=== PATIENT | female | born 1970 | race Caucasian/White ===

== ENCOUNTER 2017-07-20 20:27 | Emergency (ER) | payer MEDICAID, SELFPAY ==
[2017-07-20 20:28] VITALS: BP 175/107; PULSE 86; RESP 20; TEMP 36.7; O2SAT 98; BMI 37.6
[2017-07-20 21:59] LABS: Bacteria 0 SEEN /hpf (None Seen); Mucous, Urine 0 SEEN /hpf (<or=2+); White Blood Cells 0 SEEN /hpf (0-5)
[2017-07-20 22:02] LABS: Color, Urine Yellow (Yellow); Glucose, Dipstick Normal (Normal); Ketone-Dipstick Negative (Negative); Leukocyte Esterase-Dipstick Negative /ul (Negative); Nitrite-Dipstick Negative (Negative); Occult Blood-Urine 150 /ul (Negative); Protein-Dipstick Negative (Negative); Specific Gravity, Urine 1.015 (1.002-1.030); Urine Bilirubin Dipstick Negative (Negative); Urine Clarity Clear (Clear); Urine Urobilinogen Normal (Normal)
--- NOTE | 2017-07-20 22:05 | ED.VISSUMM ---
- ER Visit Summary Date of Service: 07/20/17 Chief Complaint: [] Lower abdominal pain History of Present Illness: The patient is a 47 F presents with lower abdominal pain for last 14 days. Gradual onset continuous cramping. Current severity is mild. No home treatment. No nausea vomiting or diarrhea. She does have history of endometriosis. She has been on her period for last 4 days and she is having light bleeding. She had her gallbladder taken out for chronic right upper quadrant abdominal pain in April. She has had persistent discomfort in that area since the surgery. However her suprapubic discomfort is not related. Physical Examination: Vital signs reviewed General: Well-nourished well-developed Head: Normocephalic atraumatic Eyes: Pupils equal round and reactive to light extraocular movements intact ENT: TMs clear no hemotympanum no trauma Neck: Nontender full range of motion Cardiovascular: Regular rate rhythm no murmurs normal S1-S2 Respiratory: No distress clear to auscultation bilaterally chest nontender Abdomen: Soft mild tenderness palpation suprapubic nondistended normal bowel sounds no masses Back: Nontender no CVA tenderness Extremities: Nontender active range of motion ?4 extremities no trauma Skin: Normal color no trauma Neuro alert oriented cranial nerves II through XII intact normal strength sensation reflexes Test Results: [] Emergency Department Course and Treatment: [] The patient did not want anything for pain. Lab work obtained. Work unremarkable including CBC chemistries liver function tests lipase urine testing and . The patient does play best feels about the same afterwards. This could be endometrial implant. This could be pain from her period. She will follow-up with her LAYBOY TENDER. I do not feel she needs an emergent ultrasound. Treatment Plan: [] Disposition: [] Impression: [] Lower abdominal pain This note was generated with [employer] dictation software. It may contain incorrect words, spelling, and punctuation that were not noted in review of the chart prior to signing ED Disposition - Plan for ED Patient: Chief Complaint: Abd Pain Referrals: Rufus Joel MD [Primary Care Provider] -
[2017-07-20 22:08] LABS: Red Blood Cells-Urine 0-5 SEEN /hpf (0-5); Squamous Epithelial Cells - UA 0-5 SEEN /hpf (5-10)
[2017-07-20 22:32] LABS: Absolute Lymphocyte Count 3.17 X10^3/ul (0.83-4.51); Absolute Neutrophil Count 5.2 X10^3/uL (2.0-7.7); Basophil# 0.07 X10^3/uL; Basophil% 0.8 % (0-1); Eosinophil# 0.12 X10^3/uL; Eosinophils% 1.3 % (0-5); Hemoglobin 15.3 g/dl (12.0-15.0); Lymphocyte # 3.17 X10^3/ul (4.0); Lymphocyte % 34.5 % (19-41); Mean Corp Hgb Conc 33.3 g/gl (32-36); Mean Corpuscular Hgb 29.4 pg (27.0-32.0); Mean Corpuscular Volume 88.5 fL (81-99); Mean Platelet Vol. 10.4 fl (6.2-12.0); Monocyte# 0.67 X10^3/uL; Monocyte% 7.3 % (0-10); Neutrophil # 5.15 X10^3/uL (2.7-7.7); POSITIVE COUNT NO; POSITIVE DIFFERENTIAL NO; POSITIVE MORPHOLOGY NO; Platelet Count 227 K/mm3 (150-450); RBC Distribution Width CV 13.9 % (11.6-14.6); RBC Distribution Width SD 44.3 fl (35.1-43.9); White Blood Count 9.2 K/mm3 (4.4-11.0)
[2017-07-20 22:46] LABS: ALB/GLOB Ratio 0.8 RATIO (0.9-2.4); AST(SGOT) 22 U/L (15-37); Alanine Aminotransfer ALT/SGPT 32 U/L (13-56); Albumin, Serum 3.4 g/dL (3.2-5.0); Alkaline Phosphatase 104 U/L (45-117); Anion Gap 6 (5-15); BUN 14 mg/dL (7-18); BUN/Creat Ratio 13.3 RATIO (10-20); Calcium,Total 8.9 mg/dL (8.5-10.1); Chloride 104 mmol/L (98-107); Creatinine, Serum 1.05 mg/dL (0.55-1.02); EST Glomerular Filtration Rate 60 mL/min (>60); Est Glom Filt Rate - Afr Amer 72 mL/min (>60); Estimated Creatinine Clearance 74.03 ml/min; Globulin 4.1 g/dL (2.2-4.2); Glucose 97 mg/dL (74-106); Lipase 156 U/L (73-393); Protein, Total 7.5 g/dL (6.4-8.2); Sodium Level 138 mmol/L (136-145)
[2017-07-20 23:18] LABS: Internal QC Validated? YES +Cl - CLEAR BKGD; Pregnancy, Urine Negative Negative
--- NOTE | 2017-07-20 23:35 | DCINST.ED_ITS ---
ED Disposition - Plan for ED Patient: Disposition: Home or Assisted Living Chief Complaint: Abd Pain Instructions: ED Abdominal Pain Unkn Cause Referrals: Rufus Joel MD [Primary Care Provider] - Additional Instructions: Please follow with your INFRASTRUCTURE SOFTWARE ENGINEER
[2017-07-20 23:46] VITALS: BP 131/75; PULSE 56; PULSE 59; RESP 16; O2SAT 52; O2SAT 97
== END 2017-07-20 23:47 | disposition home or self-care (01) ==
PROVIDERS: Emergency Provider Emergency Medicine; Family Provider Family Medicine; PCP Family Medicine
DX: R10.30 Lower abdominal pain, unspecified (principal); E11.9 Type 2 diabetes mellitus without complications; N80.9 Endometriosis, unspecified; Z79.84 Long term (current) use of oral hypoglycemic drugs; Z90.49 Acquired absence of other specified parts of digestive tract
CPT/HCPCS: 80053; 81001; 81025; 83690; 85025; 99283

== ENCOUNTER → 2018-12-17 | Outpatient (CLI) | payer MEDICAID, SELFPAY ==
[2018-12-17 12:17] LABS: Absolute Lymphocyte Count 2.23 X10^3/uL (0.83-4.51); Absolute Neutrophil Count 5.6 X10^3/uL (2.0-7.7); Basophil# 0.06 X10^3/uL; Basophil% 0.7 % (0-1); Eosinophil# 0.09 X10^3/uL; Hematocrit 44.9 % (37-47); Lymphocyte # 2.23 X10^3/ul (4.0); Lymphocyte % 25.7 % (19-41); Mean Corp Hgb Conc 33.4 g/dL (32-36); Mean Corpuscular Hgb 29.6 pg (27.0-32.0); Mean Corpuscular Volume 88.7 fL (81-99); Monocyte# 0.67 X10^3/uL; Monocyte% 7.7 % (0-10); NRBC Flagged by Analyzer 0 % (0-5); Neutrophil # 5.62 X10^3/uL (2.7-7.7); Neutrophil % 64.7 % (47-70); Platelet Count 250 K/mm3 (150-450); RBC Distribution Width CV 13.2 % (11.6-14.6); RBC Distribution Width SD 42.7 fl (35.1-43.9); Red Blood Count 5.06 M/mm3 (4.2-5.4); White Blood Count 8.7 K/mm3 (4.4-11.0)
[2018-12-17 12:43] LABS: ALB/GLOB Ratio 0.9 RATIO (0.9-2.4); AST(SGOT) 27 U/L (15-37); Alanine Aminotransfer ALT/SGPT 35 U/L (13-56); Albumin, Serum 3.5 g/dL (3.2-5.0); Alkaline Phosphatase 109 U/L (45-117); Anion Gap 5 (5-15); BUN 8 mg/dL (7-18); BUN/Creat Ratio 11.2 RATIO (10-20); Calcium,Total 9.2 mg/dL (8.5-10.1); Chloride 105 mmol/L (98-107); Creatinine, Serum 0.71 mg/dL (0.55-1.02); EST Glomerular Filtration Rate 93 mL/min (>60); Est Glom Filt Rate - Afr Amer 112 mL/min (>60); Globulin 3.9 g/dL (2.2-4.2); Glucose 115 mg/dL (74-106); Potassium 3.7 mmol/L (3.5-5.1); Protein, Total 7.4 g/dL (6.4-8.2); Sodium Level 134 mmol/L (136-145); Thyroid Stim Hormone (TSH) 1.62 uIU/mL (0.358-3.74)
== END | disposition home or self-care (01) ==
LOC: BFHLAB 11:04
PROVIDERS: Family Provider Family Medicine; PCP Family Medicine; Visit Provider Family Medicine
DX: E11.9 Type 2 diabetes mellitus without complications (principal); E78.5 Hyperlipidemia, unspecified; R60.9 Edema, unspecified
CPT/HCPCS: 36415; 80053; 84443; 85025

== ENCOUNTER → 2020-03-07 11:02 | Outpatient (CLI) | payer MEDICAID, SELFPAY ==
[2020-03-07 15:15] LABS: Absolute Lymphocyte Count 2.52 X10^3/uL (0.83-4.51); Absolute Neutrophil Count 4.6 X10^3/uL (2.0-7.7); Basophil# 0.06 X10^3/uL; Basophil% 0.8 % (0-1); Eosinophil# 0.09 X10^3/uL; Eosinophils% 1.1 % (0-5); Hematocrit 44.6 % (37-47); Hemoglobin 14.3 g/dL (12.0-15.0); Lymphocyte # 2.52 X10^3/ul (4.0); Mean Corp Hgb Conc 32.1 g/dL (32-36); Mean Corpuscular Hgb 29.4 pg (27.0-32.0); Mean Corpuscular Volume 91.6 fL (81-99); Mean Platelet Vol. 11.2 fl (6.2-12.0); Monocyte# 0.58 X10^3/uL; Monocyte% 7.4 % (0-10); NRBC Flagged by Analyzer 0 % (0-5); Neutrophil # 4.59 X10^3/uL (2.7-7.7); Neutrophil % 58.3 % (47-70); Platelet Count 223 K/mm3 (150-450); RBC Distribution Width CV 12.8 % (11.6-14.6); RBC Distribution Width SD 43.2 fl (35.1-43.9); Red Blood Count 4.87 M/mm3 (4.2-5.4); White Blood Count 7.9 K/mm3 (4.4-11.0)
[2020-03-07 15:39] LABS: ALB/GLOB Ratio 0.9 RATIO (0.9-2.4); AST(SGOT) 28 U/L (15-37); Alanine Aminotransfer ALT/SGPT 39 U/L (13-56); Albumin, Serum 3.4 g/dL (3.2-5.0); Alkaline Phosphatase 95 U/L (45-117); Anion Gap 8 (5-15); BUN 8 mg/dL (7-18); BUN/Creat Ratio 9.4 RATIO (10-20); Calcium,Total 8.8 mg/dL (8.5-10.1); Chloride 99 mmol/L (98-107); Cholesterol 209 mg/dL (200); Creatinine, Serum 0.85 mg/dL (0.55-1.02); EST Glomerular Filtration Rate 75 mL/min (>60); Est Glom Filt Rate - Afr Amer 91 mL/min (>60); Globulin 3.7 g/dL (2.2-4.2); Glucose 144 mg/dL (74-106); High Density Lipoprotein 50 mg/dL; Potassium 3.9 mmol/L (3.5-5.1); Protein, Total 7.1 g/dL (6.4-8.2); Sodium Level 135 mmol/L (136-145); Thyroid Stim Hormone (TSH) 2.71 uIU/mL (0.358-3.74); Triglycerides 190 mg/dL; Very Low Density Lipoprotein 38 mg/dL (5-40)
[2020-03-07 15:51] LABS: Hemoglobin A1c 8.2 % (3.8-5.6)
== END ==
PROVIDERS: PCP Family Medicine; Visit Provider Family Medicine
DX: E11.65 Type 2 diabetes mellitus with hyperglycemia (principal); E66.9 Obesity, unspecified
CPT/HCPCS: 36415; 80053; 80061; 83036; 84443; 85025

== ENCOUNTER 2020-05-16 09:39 | Day surgery (SDC) | payer OTHER, SELFPAY ==
--- NOTE | 2020-05-16 | COLBX_PTH ---
PATIENT: DAPHNE ACOSTA LOC: [facility] U#:[id number] AGE/SX: 49/F ROOM: RE05/16/[address]: Dr. Kostas Rush MD : 1970 BED: DIS: 05/16/2020 SPEC #: [id number] RECD: 05/16/20 12:58 STATUS: CLARE JESUS #: [id number] NOEL: 05/16/20 00:[address]: Kostas Rush DEPT: SURGICAL PATHOLOGY RECD BY: Bryant Alvarenga ENTERED: 05/16/20 12:58 SP TYPE: COLON BX OTHR DR: Dr. Rufus Joel MD Tissues: A - Duodenum, NOS B - Gastric mucous membrane C - COLON BIOPSY D - Ileum, NOS Procedures: Surgery Specimen Level IV HEADER OPERATION: Colonoscopy, EGD ([facility] [place] PRE-OP DIAGNOSIS: Hernandez's esophagus; esophageal dysphagia; diarrhea; abdominal bloating TISSUE SUBMITTED: A - Duodenum biopsy, B - Antrum biopsy for H. pylori and path, C - Random colon biopsies, D - Terminal ileum biopsy MICROSCOPIC DIAGNOSIS A. Duodenum, biopsy: Fragments of small intestinal mucosa, no pathologic diagnosis. B. Antrum, biopsy: Mild gastritis. See microscopic description and comment. C. Colon, random biopsy: Fragments of colonic mucosa, no pathologic diagnosis. D. Terminal ileum, biopsy: A fragment of small intestinal mucosa, no pathologic diagnosis. SJ:daniella 05/17/20 COMMENT B. The results of immunohistochemistry for Helicobacter pylori will be reported separately ([id number]). MICROSCOPIC DESCRIPTION Slides are reviewed. B. The specimen shows fragments of gastric mucosa with chronic inflammatory cell infiltrates in the lamina propria consisting of lymphocytes and plasma cells, consistent with mild chronic gastritis. GROSS DESCRIPTION A - Received in fixative is one container labeled with the patient's name and designated duodenal biopsy. The specimen consists of two irregular fragments of light warren soft tissue that in aggregate measure 0.8 x 0.5 x 0.1 cm. The specimen is totally submitted in one cassette. B - Received in fixative is one container labeled with the patient's name and designated antrum biopsy. The specimen consists of multiple irregular fragments of light warren soft tissue that in aggregate measure 0.5 x 0.3 x 0.1 cm. The specimen is totally submitted in one cassette. C - Received in fixative is one container labeled with the patient's name and designated random colon biopsy. The specimen consists of multiple irregular fragments of light warren soft tissue that in aggregate measure 3 x 1 x 0.1 cm. The specimen is totally submitted in one cassette. D - Received in fixative is one container labeled with the patient's name and designated terminal ileum biopsy. The specimen consists of one irregular fragment of light warren soft tissue that measures 0.7 x 0.5 x 0.1 cm. The specimen is totally submitted in one cassette. / AM:daniella 05/16/20 TC:3 CPT: 22992 x4
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
[2020-05-16 10:13] VITALS: BP 159/86; PULSE 72; RESP 16; TEMP 36.1; O2SAT 97; BMI 38.1
[2020-05-16 10:13] LABS: Internal QC Validated? YES +Cl - CLEAR BKGD; Pregnancy, Urine Negative Negative
[2020-05-16] MEDS: Lactated Ringers 1,000 ML 100 ML IV (10:18)
--- NOTE | 2020-05-16 10:45 | IMM_PTH ---
PATIENT: DAPHNE ACOSTA LOC: [facility] U#:[id number] AGE/SX: 49/F ROOM: RE05/16/[address]: Dr. Kostas Rush MD : 1970 BED: DIS: 05/16/2020 SPEC #: [id number] RECD: 05/16/20 13:41 STATUS: CLARE REQ #: [id number] NOEL: 05/16/20 10:[address]: Kostas Rush DEPT: IMMUNOHISTOCHEMISTRY RECD BY: Delaney Frias ENTERED: 05/16/20 13:42 SP TYPE: IMMUNO OTHR DR: Dr. Rufus Joel MD Tissues: B - Stomach, NOS Procedures: H Pylori (initial) PHYSICIAN & INSTITUTION [place] [id number] SPECIMEN INFORMATION: Tissue Source: B - Antrum biopsy Clinical Info: Hernandez's esophagus; esophageal dysphagia; diarrhea; abdominal bloating Specimen Number: [id number] CPT code: 12238 METHODOLOGY: Deparaffinized sections of prefer/formalin-fixed tissue or PAP/DQ stained slides are incubated with monoclonal/polyclonal antibodies/oligonucleotide probes. Localization is made via biotin free immunoperoxidase method. Appropriate controls are performed and reacted as expected. Results on target cell population are indicated in the following table: RESULTS: ANTIBODY / CLONE RESULT Block B H Pylori (polyclonal) negative These tests were developed and their performance characteristics determined by [facility]. They may not have been cleared or approved by the U.S. Food and Drug Administration. The FDA has determined that such clearance or approval is not necessary. INTERPRETATION: B. Antrum, biopsy: Negative for Helicobacter pylori organisms. SJ:daniella 05/17/20
[2020-05-16 11:00] VITALS: BP 124/71; BP 159/86; PULSE 67; RESP 16; TEMP 36.1; O2SAT 97
[2020-05-16 11:05] VITALS: BP 129/77; BP 159/86; PULSE 66; RESP 16; O2SAT 97
[2020-05-16 11:10] VITALS: BP 128/92; BP 159/86; PULSE 65; RESP 16; O2SAT 96
[2020-05-16 11:15] VITALS: BP 132/83; BP 159/86; PULSE 55; RESP 16; TEMP 36.3; O2SAT 97
[2020-05-16 11:25] LABS: Bedside Glucose 175 mg/dL (70-110)
--- NOTE | 2020-05-16 11:45 | OP.EGD_ITS ---
Patient Name: Ibis De Leon Procedure Date: 05/16/2020 10:28 AM Date of : 1970 Age: 49 Procedure: Upper GI endoscopy Indications: Esophageal dysphagia, Surveillance for malignancy due to personal history of Hernandez's esophagus, Abdominal bloating Providers: Kostas Rush MD Referring MD: Rufus Joel Medicines: See the Anesthesia note for documentation of the administered medications Patient Profile: This is a 49 year old female. Refer to note in patient chart for documentation of history and physical. Complications: No immediate complications. Procedure: Pre-Anesthesia Assessment: - Prior to the procedure, a History and Physical was performed, and patient medications and allergies were reviewed. The patient's tolerance of previous anesthesia was also reviewed. The risks and benefits of the procedure and the sedation options and risks were discussed with the patient. All questions were answered, and informed consent was obtained. Prior Anticoagulants: The patient has taken Xarelto (rivaroxaban), last dose was 5 days prior to procedure. ASA Grade Assessment: III - A patient with severe systemic disease. After reviewing the risks and benefits, the patient was deemed in satisfactory condition to undergo the procedure. After obtaining informed consent, the endoscope was passed under direct vision. Throughout the procedure, the patient's blood pressure, pulse, and oxygen saturations were monitored continuously. The gastroscope was introduced through the mouth, and advanced to the duodenal bulb. The upper GI endoscopy was accomplished without difficulty. The patient tolerated the procedure well. Scope In: 10:40:05 AM Scope Out: 10:43:00 AM Total Procedure Duration Time 0 hours 2 minutes 55 seconds Findings: The examined esophagus was normal. No biopsies or other specimens were collected for this exam.The patient's distal esophagus was stone cold normal. No biopsies were performed. Localized mild inflammation characterized by congestion (edema), erythema and granularity was found in the prepyloric region of the stomach. Biopsies were taken with a cold forceps for Helicobacter pylori testing. The examined duodenum was normal. Biopsies for histology were taken with a cold forceps for evaluation of celiac disease. Impression: - Normal esophagus. No specimens collected. - Gastritis. Biopsied. - Normal examined duodenum. Biopsied. Recommendation: - Await pathology results. - Repeat upper endoscopy in 3 years for surveillance. - Telephone my office for pathology results in 1 week. - Perform routine esophageal manometry at appointment to be scheduled. - Continue present medications. Procedure Code(s): --- Professional --- 10316, Esophagogastroduodenoscopy, flexible, transoral; with biopsy, single or multiple Diagnosis Code(s): --- Professional --- K22.70, Hernandez's esophagus without dysplasia K29.70, Gastritis, unspecified, without bleeding R13.14, Dysphagia, pharyngoesophageal phase R14.0, Abdominal distension (gaseous) CPT copyright 2017 [employer]. All rights reserved. The codes documented in this report are preliminary and upon resaw feeder review may be revised to meet current compliance requirements. MD Kostas Blunt MD 05/16/2020 11:03:18 AM This report has been signed electronically. Number of Addenda: 0 Note Initiated On: 05/16/2020 10:28 AM
--- NOTE | 2020-05-16 11:45 | OP.COLON_ITS ---
Patient Name: Ibis De Leon Procedure Date: 05/16/2020 10:43 AM Date of : 1970 Age: 49 Procedure: Colonoscopy Indications: Clinically significant diarrhea of unexplained origin, Incidental diarrhea noted Providers: Kostas Rush MD Referring MD: Rufus Joel Medicines: See the Anesthesia note for documentation of the administered medications Patient Profile: This is a 49 year old female. Refer to note in patient chart for documentation of history and physical. Last Colonoscopy: none. The patient's first colonoscopy is today. Complications: No immediate complications. Procedure: Pre-Anesthesia Assessment: - Prior to the procedure, a History and Physical was performed, and patient medications and allergies were reviewed. The patient's tolerance of previous anesthesia was also reviewed. The risks and benefits of the procedure and the sedation options and risks were discussed with the patient. All questions were answered, and informed consent was obtained. Prior Anticoagulants: The patient has taken Xarelto (rivaroxaban), last dose was 5 days prior to procedure. ASA Grade Assessment: III - A patient with severe systemic disease. After reviewing the risks and benefits, the patient was deemed in satisfactory condition to undergo the procedure. After I obtained informed consent, the scope was passed under direct vision. Throughout the procedure, the patient's blood pressure, pulse, and oxygen saturations were monitored continuously. The colonoscope was introduced through the anus and advanced to 3 cm into the ileum. The colonoscopy was performed without difficulty. The patient tolerated the procedure well. The quality of the bowel preparation was good. Scope In: 10:44:54 AM Scope Withdrawal Time 0 hours 7 minutes 0 seconds Scope Out: 10:56:18 AM Total Procedure Duration Time 0 hours 11 minutes 24 seconds Findings: The colon (entire examined portion) appeared normal. Biopsies for histology were taken with a cold forceps from the entire colon for evaluation of microscopic colitis. Non-bleeding internal hemorrhoids were found during retroflexion. The hemorrhoids were mild and small. No biopsies or other specimens were collected for this exam. The exam was otherwise without abnormality. The terminal ileum appeared normal. Biopsies were taken with a cold forceps for histology. Impression: - The entire examined colon is normal. Biopsied. - Non-bleeding internal hemorrhoids. No specimens collected. - The examination was otherwise normal. - The examined portion of the ileum was normal. Biopsied. Recommendation: - Discharge patient to home. - Resume previous diet. - Continue present medications. - Await pathology results. - Repeat colonoscopy in 10 years for screening purposes. - Telephone my office for pathology results in 1 week. Procedure Code(s): --- Professional --- 22770, Colonoscopy, flexible; with biopsy, single or multiple Diagnosis Code(s): --- Professional --- K64.8, Other hemorrhoids R19.7, Diarrhea, unspecified CPT copyright 2017 [employer]. All rights reserved. The codes documented in this report are preliminary and upon interrelated special education teacher review may be revised to meet current compliance requirements. MD Kostas Blunt MD 05/16/2020 11:07:49 AM This report has been signed electronically. Number of Addenda: 0 Note Initiated On: 05/16/2020 10:43 AM
--- NOTE | 2020-05-16 11:45 | OP.CCLET_ITS ---
05/16/2020 Rufus Joel Re : Upper GI endoscopy procedure for Ibis De Leon Dear Wisam This procedure was performed on Saturday, May 16, 2020. My impressions and recommendations are as follows: Impressions : - Normal esophagus. No specimens collected. - Gastritis. Biopsied. - Normal examined duodenum. Biopsied. Recommendations : - Await pathology results. - Repeat upper endoscopy in 3 years for surveillance. - Telephone my office for pathology results in 1 week. - Perform routine esophageal manometry at appointment to be scheduled. - Continue present medications. My findings are described in the full procedure note, which is enclosed. If I can be of further assistance, please feel free to contact me at Doctor phone number(s): , Fax: [phone], Work: . Sincerely, MD Kostas Blunt MD 05/16/2020 11:03:18 AM This report has been signed electronically.
--- NOTE | 2020-05-16 11:45 | OP.CCLET_ITS ---
05/16/2020 Rufus Joel Re : Colonoscopy procedure for Ibis De Leon Dear Wisam This procedure was performed on Saturday, May 16, 2020. My impressions and recommendations are as follows: Impressions : - The entire examined colon is normal. Biopsied. - Non-bleeding internal hemorrhoids. No specimens collected. - The examination was otherwise normal. - The examined portion of the ileum was normal. Biopsied. Recommendations : - Discharge patient to home. - Resume previous diet. - Continue present medications. - Await pathology results. - Repeat colonoscopy in 10 years for screening purposes. - Telephone my office for pathology results in 1 week. My findings are described in the full procedure note, which is enclosed. If I can be of further assistance, please feel free to contact me at Doctor phone number(s): , Fax: [phone], Work: . Sincerely, MD Kostas Blunt MD 05/16/2020 11:07:49 AM This report has been signed electronically.
[2020-05-16 11:48] VITALS: BP 159/86
== END 2020-05-16 12:01 | disposition home or self-care (01) ==
LOC: EN 09:41 → AC 09:42
PROVIDERS: Anesthesiology; PCP Family Medicine; Referring Provider Family Medicine; Visit Provider Surgery
PROC: 0DJD8ZZ Inspection of Lower Intestinal Tract, Via Natural or Artificial Opening Endoscopic (ICD-10-PCS; CPT 45378; principal; 2020-05-16 10:40)
DX: K22.70 Barrett's esophagus without dysplasia (principal); K29.70 Gastritis, unspecified, without bleeding; K64.8 Other hemorrhoids; Z20.828 Contact with and (suspected) exposure to other viral communicable diseases; F41.9 Anxiety disorder, unspecified; E11.9 Type 2 diabetes mellitus without complications; Z87.19 Personal history of other diseases of the digestive system; Z86.718 Personal history of other venous thrombosis and embolism; Z90.49 Acquired absence of other specified parts of digestive tract; Z79.01 Long term (current) use of anticoagulants; Z79.84 Long term (current) use of oral hypoglycemic drugs; Z79.899 Other long term (current) drug therapy; Z87.891 Personal history of nicotine dependence
CPT/HCPCS: 43239; 45380; 81025; 82962; 87426; 88305; 88342; C9803; J7120; J2405

== ENCOUNTER → 2020-08-14 08:36 | Outpatient (CLI) | payer OTHER, SELFPAY ==
[2020-08-14 10:17] LABS: Erythrocyte Sedimentation Rate 35 mm/hr (0-30)
[2020-08-14 10:20] LABS: Absolute Lymphocyte Count 2.48 X10^3/uL (0.83-4.51); Absolute Neutrophil Count 5.4 X10^3/uL (2.0-7.7); Basophil# 0.08 X10^3/uL; Basophil% 0.9 % (0-1); Eosinophil# 0.42 X10^3/uL; Eosinophils% 4.7 % (0-5); Hematocrit 45.7 % (37-47); Hemoglobin 14.9 g/dL (12.0-15.0); Lymphocyte # 2.48 X10^3/ul (4.0); Lymphocyte % 27.6 % (19-41); Mean Corp Hgb Conc 32.6 g/dL (32-36); Mean Corpuscular Hgb 29.7 pg (27.0-32.0); Mean Platelet Vol. 11.4 fl (6.2-12.0); Monocyte# 0.65 X10^3/uL; Monocyte% 7.2 % (0-10); NRBC Flagged by Analyzer 0 % (0-5); Neutrophil # 5.35 X10^3/uL (2.7-7.7); Neutrophil % 59.4 % (47-70); Platelet Count 192 K/mm3 (150-450); RBC Distribution Width CV 12.9 % (11.6-14.6); RBC Distribution Width SD 42.3 fl (35.1-43.9); Red Blood Count 5.02 M/mm3 (4.2-5.4)
[2020-08-14 10:39] LABS: Vitamin D,25 Hydroxy 22.8 ng/mL
[2020-08-14 10:45] LABS: AST(SGOT) 31 U/L (15-37); Alanine Aminotransfer ALT/SGPT 41 U/L (13-56); Albumin, Serum 3.8 g/dL (3.2-5.0); Alkaline Phosphatase 108 U/L (45-117); Anion Gap 7 (5-15); BUN 11 mg/dL (7-18); BUN/Creat Ratio 13.2 RATIO (10-20); Calcium,Total 9.3 mg/dL (8.5-10.1); Chloride 100 mmol/L (98-107); Creatinine, Serum 0.84 mg/dL (0.55-1.02); EST Glomerular Filtration Rate 77 mL/min (>60); Est Glom Filt Rate - Afr Amer 93 mL/min (>60); Globulin 3.8 g/dL (2.2-4.2); Glucose 131 mg/dL (74-106); Potassium 3.9 mmol/L (3.5-5.1); Protein, Total 7.6 g/dL (6.4-8.2); Rheumatoid Factor < 10.0 IU/mL (<15); Sodium Level 133 mmol/L (136-145); Thyroid Stim Hormone (TSH) 2.55 uIU/mL (0.358-3.74)
[2020-08-16 03:07] LABS: Endomysial Antibody IgA Negative (Negative); Immunoglobulin A 232 mg/dL (87-352)
[2020-08-16 07:30] LABS: CCP IgG Antibodies 21 units (0-19); t-Transglutaminase IgA <2 U/mL (0-3)
== END ==
PROVIDERS: PCP Family Medicine; Referring Provider Family Medicine; Visit Provider Family Medicine
DX: E11.65 Type 2 diabetes mellitus with hyperglycemia (principal); R19.7 Diarrhea, unspecified; M13.0 Polyarthritis, unspecified; R53.83 Other fatigue
CPT/HCPCS: 36415; 80053; 82306; 82784; 83516; 84443; 85025; 85652; 86038; 86140; 86200; 86255; 86431

== ENCOUNTER → 2020-10-05 09:29 | Outpatient (CLI) | payer OTHER, SELFPAY ==
--- NOTE | 2020-10-05 09:37 | RAD_ITS ---
STUDY: X-RAY - RIGHT ELBOW REASON FOR EXAM: Female, 50 years old. PAIN TECHNIQUE: 3 view(s) of the elbow. COMPARISON: None. FINDINGS: Normal visualized humerus, radius and ulna. Normal radiocapitellar and ulnotrochlear articulations. The soft tissue structures are unremarkable. RAD/Elbow min 3 Views IMPRESSION: Normal x-ray examination of the elbow. Electronically Signed: Trenton Perez MD at 7:16 EDT Tel , Service support ,
--- NOTE | 2020-10-05 09:37 | RAD_ITS ---
STUDY: X-RAY - LEFT ELBOW REASON FOR EXAM: Female, 50 years old. PAIN TECHNIQUE: 3 view(s) of the elbow. COMPARISON: None. FINDINGS: Normal visualized humerus, radius and ulna. Normal radiocapitellar and ulnotrochlear articulations. The soft tissue structures are unremarkable. RAD/Elbow min 3 Views IMPRESSION: Normal x-ray examination of the elbow. Electronically Signed: Trenton Perez MD at 7:24 EDT Tel , Service support ,
--- NOTE | 2020-10-05 09:38 | RAD_ITS ---
STUDY: X-RAY - RIGHT HAND REASON FOR EXAM: Female, 50 years old. PAIN TECHNIQUE: 2 view(s) of the hand. COMPARISON: None. FINDINGS: Normal radiocarpal articulation. Normal distal radioulnar joint. Normal visualized carpal bones. Normal carpal articulations Normal carpometacarpal articulation of the thumb. Normal second through fifth carpometacarpal joints. Normal metacarpi. Normal metacarpophalangeal joint of the thumb. Normal interphalangeal joint of the thumb. Normal proximal and distal phalanges of the thumb. Normal metacarpophalangeal joints of the second through fifth fingers. Normal proximal and distal interphalangeal joints of the second through fifth fingers. Normal phalanges of the second through fifth fingers. The soft tissue structures are unremarkable. RAD/Hand 2 Views IMPRESSION: Normal x-ray examination of the hand. Electronically Signed: Trenton Perez MD at 7:18 EDT Tel , Service support ,
--- NOTE | 2020-10-05 09:38 | RAD_ITS ---
STUDY: X-RAY - LEFT HAND REASON FOR EXAM: Female, 50 years old. PAIN TECHNIQUE: 2 view(s) of the hand. COMPARISON: None. FINDINGS: Normal radiocarpal articulation. Normal distal radioulnar joint. Normal visualized carpal bones. Normal carpal articulations Normal carpometacarpal articulation of the thumb. Normal second through fifth carpometacarpal joints. Normal metacarpi. Normal metacarpophalangeal joint of the thumb. Normal interphalangeal joint of the thumb. Normal proximal and distal phalanges of the thumb. Normal metacarpophalangeal joints of the second through fifth fingers. Normal proximal and distal interphalangeal joints of the second through fifth fingers. Normal phalanges of the second through fifth fingers. The soft tissue structures are unremarkable. RAD/Hand 2 Views IMPRESSION: Normal x-ray examination of the hand. Electronically Signed: Trenton Perez MD at 7:18 EDT Tel , Service support ,
== END ==
PROVIDERS: PCP Family Medicine
DX: R79.89 Other specified abnormal findings of blood chemistry (principal); M25.50 Pain in unspecified joint
CPT/HCPCS: 73080; 73120

== ENCOUNTER 2021-01-01 15:50 | Emergency (ER) | payer OTHER, SELFPAY ==
[2021-01-01 15:51] VITALS: BP 168/92; PULSE 72; RESP 16; TEMP 36.6; O2SAT 99; BMI 40.4
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
[2021-01-01] MEDS: Morphine 4 MG/ML Syringe IV (16:16)
[2021-01-01] MEDS: Ondansetron 4 MG/2 ML Vial IV (16:16)
[2021-01-01] MEDS: 0.9% Normal Saline 1,000 ML 999 ML IV (16:17)
--- NOTE | 2021-01-01 16:20 | CT_ITS ---
STUDY: CT ABDOMEN AND PELVIS WITHOUT CONTRAST REASON FOR EXAM: Female, 50 years old. Kidney Stone RADIATION DOSAGE (If Supplied By Facility): CTDIvol = ( 23.44 ) mGy, DLP = ( 1306.01 ) mGycm TECHNIQUE: Transaxial images were obtained from the dome of the diaphragm to the symphysis pubis without oral contrast, and without intravenous contrast. Sagittal and coronal images were reconstructed. Individualized dose optimization techniques were used for this CT. COMPARISON: None. FINDINGS: The visualized lung bases are unremarkable. The visualized portions of the heart are within normal limits. Normal liver. Normal gallbladder not visualized likely due to severely contracted state as there are also surgical clips observed.. Clinical correlation is recommended in this regard Normal spleen. Normal pancreas. Normal bilateral adrenal glands. Normal right kidney. Tiny nonobstructing left renal calculus. Mild left renal pelvocaliectasis secondary to calculus in the proximal ureter measuring approximately 5 to 6 mm in size. Normal visualized stomach. Normal small intestine. Normal colon. The appendix is visualized and appears normal. Normal abdominal aorta. Normal inferior vena cava. Normal retroperitoneum. Distended mildly thick-walled bladder likely of no significance Normal abdominal wall. Lumbar spine demonstrates interval change. CT/Abdomen/Pelvis without Cont IMPRESSION: Left nephrolithiasis and mild left renal obstruction secondary to calculus in the proximal ureter measuring 5 to 6 mm in size Electronically Signed: Brijesh Healy MD at 16:44 EDT , Service support ,
[2021-01-01 16:22] LABS: Absolute Lymphocyte Count 2.35 X10^3/uL (0.83-4.51); Absolute Neutrophil Count 7.1 X10^3/uL (2.0-7.7); Basophil# 0.07 X10^3/uL; Basophil% 0.7 % (0-1); Eosinophil# 0.16 X10^3/uL; Eosinophils% 1.6 % (0-5); Hematocrit 45.6 % (37-47); Hemoglobin 14.7 g/dL (12.0-15.0); Lymphocyte # 2.35 X10^3/ul (0.83-4.51); Lymphocyte % 22.8 % (19-41); Mean Corp Hgb Conc 32.2 g/dL (32-36); Mean Corpuscular Hgb 29.2 pg (27.0-32.0); Mean Corpuscular Volume 90.5 fL (81-99); Mean Platelet Vol. 10.7 fl (6.2-12.0); Monocyte# 0.64 X10^3/uL; Monocyte% 6.2 % (0-10); NRBC Flagged by Analyzer 0 % (0-5); Neutrophil # 7.06 X10^3/uL (2.7-7.7); Neutrophil % 68.4 % (47-70); Platelet Count 281 K/mm3 (150-450); RBC Distribution Width CV 12.7 % (11.6-14.6); RBC Distribution Width SD 41.8 fl (35.1-43.9); Red Blood Count 5.04 M/mm3 (4.2-5.4); White Blood Count 10.3 K/mm3 (4.4-11.0)
[2021-01-01 16:35] LABS: Anion Gap 2 (5-15); BUN 13 mg/dL (7-18); BUN/Creat Ratio 14.2 RATIO (10-20); Calcium,Total 9.8 mg/dL (8.5-10.1); Chloride 104 mmol/L (98-107); Creatinine, Serum 0.92 mg/dL (0.55-1.02); EST Glomerular Filtration Rate 69 mL/min (>60); Est Glom Filt Rate - Afr Amer 83 mL/min (>60); Estimated Creatinine Clearance 81.77 ml/min; Glucose 140 mg/dL (74-106); Potassium 3.5 mmol/L (3.5-5.1); Sodium Level 138 mmol/L (136-145)
[2021-01-01 16:45] LABS: Internal QC Validated? YES +Cl - CLEAR BKGD; Pregnancy, Serum, hCG Quali. NEGATIVE Negative
[2021-01-01] MEDS: Ketorolac 15 MG/ML Vial IM (17:25)
[2021-01-01] MEDS: oxyCODONE 5 MG Tablet PO (17:25)
[2021-01-01 17:31] LABS: Bacteria 0 SEEN /hpf (None Seen); Mucous, Urine 0 SEEN /hpf (<or=2+); Squamous Epithelial Cells - UA 0 SEEN /hpf (5-10); White Blood Cells 0 SEEN /hpf (0-5)
[2021-01-01 17:33] LABS: Color, Urine Yellow (Yellow); Glucose, Dipstick Normal (Normal); Ketone-Dipstick Negative (Negative); Leukocyte Esterase-Dipstick 25 /ul (Negative); Nitrite-Dipstick Negative (Negative); Occult Blood-Urine 250 /ul (Negative); Protein-Dipstick 15 mg/dl (Negative); Urine Bilirubin Dipstick Negative (Negative); Urine Clarity Clear (Clear); Urine Urobilinogen Normal (Normal)
[2021-01-01 17:41] LABS: Red Blood Cells-Urine 0-5 SEEN /hpf (0-5)
== END 2021-01-01 17:54 | disposition home or self-care (01) ==
PROVIDERS: Emergency Provider Student in an Organized Health Care Education/Training Program; PCP Family Medicine
DX: N20.1 Calculus of ureter (principal); E66.9 Obesity, unspecified; Z68.41 Body mass index [BMI] 40.0-44.9, adult; Z86.718 Personal history of other venous thrombosis and embolism; Z79.01 Long term (current) use of anticoagulants; Z87.891 Personal history of nicotine dependence
CPT/HCPCS: 74176; 80048; 81001; 84703; 85025; 96361; 96372; 96374; 96375; 99283; J7030; A4216; J2405

== ENCOUNTER → 2021-03-11 17:03 | Outpatient (CLI) | payer OTHER, SELFPAY ==
--- NOTE | 2021-03-11 17:05 | US_ITS ---
STUDY: RENAL ULTRASOUND - COMPLETE REASON FOR EXAM: Female, 50 years old. KIDNEY STONES TECHNIQUE: Ultrasound evaluation of the kidneys was performed with real-time and static weiss-scale imaging. COMPARISON: 09/28/2015 and 01/01/2021 FINDINGS: Aorta: Visualized portions of abdominal aorta are normal in diameter. IVC: Visualized portions appear patent. Right kidney: Measures 12.2 cm. Normal contour. Renal cortical thickness appears normal. No cysts. No masses, stones, or hydronephrosis identified. Left kidney: Measures 11.6 cm. Normal contour. Renal cortical thickness appears normal. No cysts. No masses, stones, or hydronephrosis identified. Bladder: No intrinsic masses, stones, or abnormal dilatation noted. US/Kidney and Bladder IMPRESSION: Renal ultrasound is within normal limits. No renal stones or hydronephrosis identified. Electronically Signed: Raji Mejia MD at 15:11 EDT Tel , Service support ,
== END ==
PROVIDERS: PCP Family Medicine
DX: N20.1 Calculus of ureter (principal)
CPT/HCPCS: 76770

== ENCOUNTER → 2023-01-26 | Outpatient (CLI) | payer BC, SELFPAY ==
[2023-01-26 10:25] LABS: ALB/GLOB Ratio 0.9 RATIO (0.9-2.4); AST(SGOT) 16 U/L (15-37); Alanine Aminotransfer ALT/SGPT 37 U/L (13-56); Albumin, Serum 3.2 g/dL (3.2-5.0); Alkaline Phosphatase 172 U/L (45-117); Anion Gap 8 (5-15); BUN 11 mg/dL (7-18); BUN/Creat Ratio 11.3 RATIO (10-20); Calcium,Total 8.9 mg/dL (8.5-10.1); Chloride 104 mmol/L (98-107); Cholesterol 220 mg/dL (200); Creatinine, Serum 0.97 mg/dL (0.55-1.02); EST Glomerular Filtration Rate 64 mL/min (>60); Est Glom Filt Rate - Afr Amer 77 mL/min (>60); Globulin 3.7 g/dL (2.2-4.2); Glucose 303 mg/dL (74-106); High Density Lipoprotein 43 mg/dL; Potassium 4.1 mmol/L (3.5-5.1); Protein, Total 6.9 g/dL (6.4-8.2); Sodium Level 136 mmol/L (136-145); Triglycerides 181 mg/dL; Very Low Density Lipoprotein 36 mg/dL (5-40)
== END | disposition home or self-care (01) ==
PROVIDERS: PCP Family Medicine; Visit Provider Family Medicine
DX: E11.9 Type 2 diabetes mellitus without complications (principal)
CPT/HCPCS: 36415; 80053; 80061

== ENCOUNTER → 2024-11-01 | Outpatient (CLI) | payer OTHER, SELFPAY ==
[2024-11-01 17:47] LABS: Absolute Lymphocyte Count 3.28 X10^3/uL (0.83-4.51); Absolute Neutrophil Count 6.1 X10^3/uL (2.0-7.7); Basophil# 0.08 X10^3/uL; Basophil% 0.8 % (0-1); Eosinophil# 0.18 X10^3/uL; Eosinophils% 1.7 % (0-5); Hematocrit 50.6 % (37-47); Hemoglobin 16.6 g/dL (12.0-15.0); Lymphocyte # 3.28 X10^3/ul (0.83-4.51); Lymphocyte % 31.7 % (19-41); Mean Corp Hgb Conc 32.8 g/dL (32-36); Mean Corpuscular Volume 88.3 fL (81-99); Mean Platelet Vol. 10.8 fl (6.2-12.0); Monocyte# 0.68 X10^3/uL; Monocyte% 6.6 % (0-10); NRBC Flagged by Analyzer 0 % (0-5); Neutrophil # 6.09 X10^3/uL (2.7-7.7); Neutrophil % 58.9 % (47-70); Platelet Count 273 K/mm3 (150-450); RBC Distribution Width CV 13.1 % (11.6-14.6); RBC Distribution Width SD 42.1 fl (35.1-43.9); Red Blood Count 5.73 M/mm3 (4.2-5.4); White Blood Count 10.3 K/mm3 (4.4-11.0)
[2024-11-01 17:59] LABS: Hemoglobin A1c 6.5 % (<=5.6)
[2024-11-01 18:13] LABS: Cholesterol 242 mg/dL (<=200); High Density Lipoprotein 52 mg/dL; Low Density Lipoprotein Calc. 159 mg/dL; Magnesium 2.1 mg/dL (1.5-2.2); Triglycerides 154 mg/dL; Very Low Density Lipoprotein 31 mg/dL (5-40); Vitamin D,25 Hydroxy 22.3 ng/mL (30-100); cholesterol:hdl ratio screen 4.65
[2024-11-01 18:29] LABS: ALB/GLOB Ratio 1.2 RATIO (0.9-2.4); AST(SGOT) 29 U/L (<=31); Alanine Aminotransfer ALT/SGPT 32 U/L (<=34); Albumin, Serum 4.3 g/dL (3.5-5.0); Alkaline Phosphatase 145 U/L (35-104); Anion Gap 14 (5-15); BUN 12 mg/dL (4-19); Calcium,Total 9.9 mg/dL (7.6-11.0); Carbon Dioxide 22.8 mmol/L (21.0-32.0); Chloride 98 mmol/L (98-108); Creatinine, Serum 0.77 mg/dL (0.70-1.20); EST Glomerular Filtration Rate 92 (>60); Globulin 3.5 g/dL (2.2-4.2); Glucose 101 mg/dL (70-99); Potassium 3.9 mmol/L (3.3-5.1); Protein, Total 7.8 g/dL (5.9-8.4); Sodium Level 135 mmol/L (133-145); Total Bilirubin 0.65 mg/dL (0.00-1.30)
== END | disposition home or self-care (01) ==
LOC: MFPLAB 14:30
PROVIDERS: PCP Family Medicine; Referring Provider Family Medicine; Visit Provider Family Medicine
DX: E66.01 Morbid (severe) obesity due to excess calories (principal); R53.83 Other fatigue; E78.5 Hyperlipidemia, unspecified
CPT/HCPCS: 36415; 80053; 80061; 82306; 83036; 83735; 84443; 85025

== ENCOUNTER 2025-04-19 20:44 | Emergency (ER) | payer OTHER, SELFPAY ==
[2025-04-19 20:45] VITALS: BP 163/105; PULSE 89; RESP 16; TEMP 36.8; O2SAT 99; BMI 34.9
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
[2025-04-19 21:20] LABS: Hematocrit 50.3 % (37-47); Hemoglobin 16.9 g/dL (12.0-15.0); Immature Granulocytes Count 0.090 X10^3/uL (0.0-0.0); Mean Corp Hgb Conc 33.6 g/dL (32-36); Mean Corpuscular Volume 85.5 fL (81-99); Mean Platelet Vol. 10.1 fl (6.2-12.0); NRBC Flagged by Analyzer 0 % (0-5); Platelet Count 272 K/mm3 (150-450); RBC Distribution Width CV 13.1 % (11.6-14.6); RBC Distribution Width SD 40.6 fl (35.1-43.9); Red Blood Count 5.88 M/mm3 (4.2-5.4); White Blood Count 13.8 K/mm3 (4.4-11.0)
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
--- OUTSIDE RECORDS SUMMARY | 2025-04-19 21:20 | XMS RPT_ITS | CCD ---
Author Organization [facility] Care Team Providers Care Hop Picker Name Role Phone NICK CARTY Attending Unavailable RUFUS OJEL Primary Care Unavailable NICK CARTY Attending Unavailable RUFUS JOEL Primary Care Unavailable THOMAS ROTHE H Admitting Unavailable Aline MORALES Attending Unavailable JUAREZ, GRACE H Referring Unavailable RUFUS JOEL Primary Care Unavailable Aline MORALES Attending Unavailable RUFUS JOEL Primary Care Unavailable Rufus Joel Primary Care Provider Rufus Joel Primary Care Provider RUFUS JOEL Referring Unavailable RUFUS JOEL Primary Care Unavailable ELE HERNANDEZ Attending Unavailable ELE HERNANDEZ Attending Unavailable RUFUS JOEL Referring Unavailable RUFUS JOEL Primary Care Unavailable Naeem Lopez Attending Unavailable Naeem Lopez Admitting Unavailable Hamjosue, Dr. Hartley Attending Unavailable Hamad, Dr. Hartley Attending Unavailable Nirmal, Dr. Hartley Admitting Unavailable HamNaeem salas MD Unavailable NAEEM LOPEZ Attending Unavailable Unavailable Primary Care Provider Unavailabl e KIERAN KHAN Referring Unavailable KIERAN KHAN Attending Unavailable KIERAN KHAN Referring Unavailable KIERAN KHAN Referring Unavailable KIERAN KHAN Attending Unavailable Beata Atkins MD Primary Care Provider Beata Atkins MD Attending Provider Beata Atkins MD Referring Provider [phone] Beata Atkins Referring Unavailable Beata Atkins Attending Unavailable Beata Atkins Primary Care Unavailable Allergies Allergy Classification Reported Allergen(s) Allergy Type Date of Onset Reaction(s) Facility (13 sources) Cephalexin; Translations: [Unknown] Drug Allergy 8 Diarrhea [facility] Repository (1 source) ALLERGIES NOT ON FILE; Translations: [ALLERGIES NOT ON FILE] Propensity to adverse reactions (disorder) [facility] Repository (1 source) Cephalexin Drug Allergy [facility] Repository Medications Current Medications Medication Drug Class(es) Dates Sig (Normalized) Sig (Original) acetaminophen 325 mg / HYDROcodone bitartrate 5 mg oral tablet (2 sources) Opioid Agonist Start: 01-01-2021 take 1 tablet by mouth every six hours as needed for pain Hydrocodone-Aceta minophen 5-325 mg tablet Active 1 {tbl} PO EVERY 6 HOURS NEEDED as needed for Pain 12 January 01, 2021 Start: 01-01-2021 take 1 tablet by adrienne th every six hours as needed Hydrocodone-Acetaminophen Active 1 TABLE T PO EVERY 6 HOURS NEEDED 12 January 01, 2021 amoxicillin 500 mg oral capsule (1 source) Penicillin-class Antibacterial Start: 08-08-2022 take 1 capsule by mouth every eight hours amoxicillin (Amoxil) 500 mg capsule Take 1 capsule (500 mg) by mouth every 8 hours. 0 08/08/2022 Active dapagliflozin 10 mg oral tablet (2 sources) Sodium-Glucose Cotransporter 2 Inhibitor Start: 02-19-2023 End: 02-19-2024 dapagliflozin propanediol (Farxiga) 10 mg TAKE 1 TABLET DAILY 90 tablet 0 05/05/2023 Active empagliflozin 10 mg oral tablet (7 sources) Sodium-Glucose Cotransporter 2 Inhibitor Start: 02-23-2024 take 1 tablet by mouth once daily JARDIANCE 10 mg tablet Take 1 tablet by mouth once daily. 02/23/2024 Active esomeprazole 20 mg delayed release oral capsule (11 sources) Proton Pump Inhibitor Start: 02-18-2017 take 1 capsule by mouth once daily Esomeprazole Magnesium 20 MG capsule Active 20 mg PO DAILY February 18, 2017 12:00am take 40 mg by mouth once daily e someprazole magnesium (NEXIUM ORAL) Take 40 mg by mouth daily . 0 Active loratadine 10 mg oral tablet (7 sources) take 1 tablet by mouth once daily loratadine (CLARITIN) 10 mg tablet Take 10 mg by mouth once daily. Active 24 hr metFORMIN hydrochloride 500 mg extended release oral tablet (5 sources) Biguanide Start: 11-24-2022 take 1 tablet by mouth once daily at mealtime metFORMIN XR 500 mg 24 hr tablet Take 1 tablet (500 mg) by mouth once daily in the evening. Take with meals. 0 11/24/2022 Active Start: 08-12-2017 metFORMIN (GLU COPHAGE) 500 MG tablet daily with breakfast . 0 08/12/2017 Active Start: 02-18-2017 take 2 tablets by mo uth once daily Metformin 500 MG tablet Active 1000 mg PO DAILY February 18, 2017 12:00am Start: 02-18-2017 take 1000 mg by mout h once daily Metformin Active 1000 MG PO DAILY February 18, 2017 12:00am multivitamin (multivitamin) per tablet (2 sources) take 1 tablet by mouth once daily multivitamin (multivitamin) per tablet Take 1 tablet by mouth daily . 0 Active ondansetron 4 mg disintegrating oral tablet (3 sources) Serotonin-3 Receptor Antagonist Start: 10-11-19 take 1 tablet by mouth every eight hours as needed ondansetron ODT (Zofran-ODT) 4 mg disintegrating tablet Take 1 tablet (4 mg) by mouth every 8 hours if needed. 0 10/10/2022 Active Start: 01-01-2021 take 1 tablet by adrienne th every eight hours as needed for nausea and vomiting Ondansetron Hcl (Zofran) 4 mg tablet Active 4 mg PO Q8H as needed for nausea and vomiting January 01, 2021 12:00am OZEMPIC 2 mg/dose (8 mg/3 mL) pen injector (7 sources) Start: 02-09-2023 inject 2 mg by subcutaneous injection every week OZEMPIC 2 mg/dose (8 mg/3 mL) pen injector INJECT SUBCUTANEOUSLY ONCE A WEEK 02/09/2023 Active semaglutide (Ozempic) 1 mg/dose (4 mg/3 mL) pen injector (3 sources) Start: 06-08-2023 semaglutide (O zempic) 1 mg/dose (4 mg/3 mL) pen injector Inject 1 (one) Milligram weekly 9 mL 0 06/08/2023 Active Start: 06-08-2023 inject 1 mg by subcu taneous injection every week semaglutide (Ozempic) 1 mg/dose (4 mg/3 mL) pen injector Inject under the skin once weekly 3 mL 2 06/08/2023 Active Start: 05-05-2023 semaglutide (O zempic) 1 mg/dose (4 mg/3 mL) pen injector INJECT 1 (one) Milligram weekly 9 mL 0 05/05/2023 Active semaglutide 0.25 mg or 0.5 mg (2 mg/3 mL) pen injector (2 sources) Start: 01-13-2023 End: 01-13-2024 inject 0.5 mg by subcutaneous injection every week semaglutide 0.25 mg or 0.5 mg (2 mg/3 mL) pen injector INJECT 0.5MG UNDER THE SKIN WEEKLY 3 mL 0 01/13/2023 01/13/2024 Active Start: 10-10-2022 End: 10-10-2023 semaglutide 0.25 mg or 0.5 m g (2 mg/3 mL) pen injector INJECT 0.5 MG ONCE A WEEK. 3 mL 2 10/10/2022 10/10/2023 Active semaglutide 2 mg/dose (8 mg/3 mL) pen injector (1 source) Start: 02-09-2023 End: 02-09-2024 inject 2 mg by subcutaneous injection every week semaglutide 2 mg/dose (8 mg/3 mL) pen injector INJECT SUBCUTANEOUSLY ONCE A WEEK 3 mL 2 02/09/2023 02/09/2024 Active sertraline 50 mg oral tablet (2 sources) Serotonin Reuptake Inhibitor Start: 02-09-2023 End: 02-09-2024 sertraline (Zoloft) 50 mg tablet TAKE 1 (one) Tablet DAILY 90 tablet 0 05/05/2023 Active tamsulosin hydrochloride 0.4 mg oral capsule (2 sources) alpha-Adrenergi c Roseanne Start: 01-01-2021 take 1 capsule by mouth once daily Tamsulosin (Flomax) 0.4 mg capsule Active 0.4 mg PO DAILY January 01, 2021 12:00am UNABLE TO FIND (2 sources) UNABLE TO FIND daily Essential oil caps . 0 Active Completed/Discontinued Medications Medication Drug Class(es) Dates Sig (Normalized) Sig (Original) acetaminophen 325 mg / oxyCODONE hydrochloride 5 mg oral tablet (2 sources) Opioid Agonist Start: 04-21-2017 End: 04-18-2020 Oxycodone-Acetamino phen 1 TABLET tablet Discontinued 1 - 2 {tbl} PO EVERY 4 HOURS NEEDED as needed for Pain April 21, 2017 1:00am April 18, 2020 10:58am Start: 04-21-2017 End: 04-18-2020 take 1 tablet by mouth every four hours as needed Oxycodone-Acetaminophen Discontinued 1 - 2 TABLET PO EVERY 4 HOURS NEEDED April 21, 2017 1:00am April 18, 2020 10:58am diphenhydrAMINE hydrochloride 25 mg oral capsule (3 sources) Histamine-1 Receptor Antagonist Start: 04-15-2017 End: 04-18-2020 take 2 capsules by mouth at bedtime as needed Diphenhydramine Hcl 25 MG capsule Discontinued 50 mg PO AT BEDTIME NEEDED as needed for Insomnia April 15, 2017 1:00am April 18, 2020 10:58am Start: 04-15-2017 End: 04-18-2020 take 50 mg by mouth at bedtime as needed Diphenhydramine Hcl Discontinued 50 MG PO AT BEDTIME NEEDED April 15, 2017 1:00am April 18, 2020 10:58am End: 10-14-2018 take 3 tablets by mouth once daily as needed diphenhydrAMINE (BENADRYL ALLERGY) 25 mg tablet Take 75 mg by mouth nightly as needed for itching . 0 10/14/2018 Discontinued rivaroxaban 20 mg oral tablet (7 sources) Factor Xa Inhibitor Start: 04-18-2020 End: 07-07-2023 take 1 tablet by mouth once daily rivaroxaban (Xarelto) 20 mg tablet Take 1 (one) Tablet by mouth daily 30 tablet 0 06/08/2023 07/07/2023 Discontinued (Reorder) traMADol hydrochloride 50 mg oral tablet (1 source) Opioid Agonist End: 10-14-2018 take 1 tablet by mouth every four hours as needed traMADol (ULTRAM) 50 mg tablet Take 50 mg by mouth every 4 (four) hours as needed for pain. 0 10/14/2018 Discontinued Problems Active Problems Problem Classification Problem Date Documented Da te Episodic/Chronic Calculus of urinary tract (2 sources) Ureteric stone; Translations: [Calculus of ureter] 01-01-2021 Episodic Diabetes mellitus without complication (8 sources) Type 2 diabetes mellitus without complications; Translations: [Type 2 diabetes mellitus without complication] Onset: 06-16-2022 04-18-2024 Chronic Immunizations and screening for infectious disease (4 sources) Patient encounter status; Translations: [Encounter for screening for human papillomavirus (HPV)] 04-18-2024 Episodic Menopausal disorders (3 sources) Postmenopausal bleeding; Translations: [Postmenopausal bleeding] 04-18-2024 Chronic Other diseases of veins and lymphatics (8 sources) Post-thrombotic syndrome of left lower extremity; Translations: [Postthrombotic syndrome without complications of left lower extremity] Onset: 10-14-2018 07-07-2023 Chronic Other diseases of veins and lymphatics (3 sources) Post-thrombotic syndrome of left lower extremity; Translations: [Post-thrombotic syndrome of left lower extremity] Onset: 10-14-2018 10-14-2018 Other gastrointestinal disorders (2 sources) Dysphagia; Translations: [Dysphagia, unspecified] 05-23-2020 Episodic Other hematologic conditions (4 sources) Secondary polycythemia; Translations: [Secondary polycythemia] Onset: 06-16-2022 Episodic Other nutritional; endocrine; and metabolic disorders (8 sources) Obese class II; Translations: [Obesity, unspecified] Onset: 10-04-2020 07-07-2023 Chronic Other nutritional; endocrine; and metabolic disorders (1 source) Morbid (severe) obesity due to excess calories; Translations: [Morbid (severe) obesity due to excess calories] Onset: 11-04-2024 Chronic Other screening for suspected conditions (not mental disorders or infectious disease) (1 source) Encounter for screening mammogram for malignant neoplasm of breast; Translations: [Encounter for screening mammogram for malignant neoplasm of breast] Onset: 04-18-2024 Episodic Past or Other Problems Problem Classification Problem Date Documented Da te Episodic/Chronic Other hematologic conditions (7 sources) Secondary polycythemia; Translations: [Secondary polycythemia] Onset: 06-16-2022 04-18-2024 Episodic Other injuries and conditions due to external causes (3 sources) Injury of blood vessel; Translations: [Post-traumatic deep vein thrombosis (DVT)] Onset: 10-14-2018 10-14-2018 Episodic Phlebitis; thrombophlebitis and thromboembolism (20 sources) H/O: Deep vein thrombosis; Translations: [Acute embolism and thrombosis of unspecified deep veins of unspecified lower extremity] Onset: 10-14-2018 Resolved: 04-18-2024 10-14-2018 Episodic Unclassified (2 sources) s/p uterine ablation 12-21-2021 Results Test Name Value Interpretation Reference Range Facility Absolute lymphocyte countOrd ered By: Beata Blumke on 11-01-2024 Lymphocytes Auto (Unsp spec) [#/Vol] 3.28 10*3/uL 0.83-4.51 [facility] Absolute neutrophil countOrd ered By: Beata Blumke on 11-01-2024 Neutrophils (Bld) [#/Vol] 6.1 10*3/uL 2.0-7.7 [facility] Anion gap in Serum or Plasma Ordered By: Earlrj Milly on 11-01-2024 Anion gap [Moles/Vol] 14 mmol/L 5-15 [facility] Automated lymphocyte count a s percentage of total leukocytesOrdered By: Earlrj Milly on 11-01-2024 Lymphocytes/100 WBC Auto (Unsp spec) 31.7 % 19-41 [facility] BUN/creatinine ratioOrdered By: Beata Atkins on 11-01-2024 Urea nitrogen/Creatinine [Mass ratio] 15.0 mg/mg 10-20 [facility] Basophil percentageOrdered B y: Earlrj Milly on 11-01-2024 Basophils/100 WBC (Bld) 0.8 % 0-1 [facility] Bilirubin, totalOrdered By: Beata Milly on 11-01-2024 Bilirubin [Mass/Vol] 0.65 mg/dL 0.00-1.30 [facility] CBC W/Diff, Automatedon Absolute Lymph 3.28 X10 3/uL Normal 0.83-4.51 [facility] Comment on above: Order Comment: Order Date: 11/01/24 Order Info: [id number] - CBCD Performed By: #### L [id number], L501.9520, L501.5200, L500.4100, L100.0100, L500.4050 #### [facility] [address] [place], [place], [id number] Absolute Neut 6.1 X10 3/uL Normal 2.0-7.7 [facility] Comment on above: Order Comment: Order Date: 11/01/24 Order Info: [id number] - CBCD Performed By: #### L [id number], L501.9520, L501.5200, L500.4100, L100.0100, L500.4050 #### [facility] [address] [place], [address] Basophils/100 WBC (Bld) 0.8 % Normal 0-1 [facility] Comment on above: Order Comment: Order Date: 11/01/24 Order Info: [id number] - CBCD Performed By: #### L [id number], L501.9520, L501.5200, L500.4100, L100.0100, L500.4050 #### [facility] [address] [place], [address] Eosinophils/100 WBC (Bld) 1.7 % Normal 0-5 [facility] Comment on above: Order Comment: Order Date: 11/01/24 Order Info: [id number] - CBCD Performed By: #### L [id number], L501.9520, L501.5200, L500.4100, L100.0100, L500.4050 #### [facility] [address] [place], [address] Erythrocyte distribution width (RBC) [Ratio] 13.1 % Normal 11.6-14.6 [facility] Comment on above: Order Comment: Order Date: 11/01/24 Order Info: [id number] - CBCD Performed By: #### L [id number], L501.9520, L501.5200, L500.4100, L100.0100, L500.4050 #### [facility] [address] [place], [address] Hematocrit (Bld) [Volume fraction] 50.6 % High 37-47 [facility] Comment on above: Order Comment: Order Date: 11/01/24 Order Info: [id number] - CBCD Performed By: #### L [id number], L501.9520, L501.5200, L500.4100, L100.0100, L500.4050 #### [facility] [address] [place], [address] Hemoglobin (Bld) [Mass/Vol] 16.6 g/dL High 12.0-15.0 [facility] Comment on above: Order Comment: Order Date: 11/01/24 Order Info: [id number]- - CBCD Performed By: #### L [id number], L501.9520, L501.5200, L500.4100, L100.0100, L500.4050 #### [facility] [address] [place], [address] IG% 0.300 Normal 0.0-0.9 [facility] Comment on above: Order Comment: Order Date: 11/01/24 Order Info: [id number] - CBCD Result Comment: IG% - Immature Granulocytes (promyelocytes, myelocytes and metamyelocytes) > 1% indicates that a LEFT SHIFT is Present. Performed By: #### L [id number], L501.9520, L501.5200, L500.4100, L100.0100, L500.4050 #### [facility] [address] [place], [address] Lymphocytes/100 WBC (Bld) 31.7 % Normal 19-41 [facility] Comment on above: Order Comment: Order Date: 11/01/24 Order Info: [id number] - CBCD Performed By: #### L [id number], L501.9520, L501.5200, L500.4100, L100.0100, L500.4050 #### [facility] [address] [place], [address] MCH (RBC) [Entitic mass] 29.0 pg Normal 27.0-32.0 [facility] Comment on above: Order Comment: Order Date: 11/01/24 Order Info: [id number] - CBCD Performed By: #### L [id number], L501.9520, L501.5200, L500.4100, L100.0100, L500.4050 #### [facility] [address] [place], [address] MCHC (RBC) [Mass/Vol] 32.8 g/dL Normal 32-36 [facility] Comment on above: Order Comment: Order Date: 11/01/24 Order Info: [id number] - CBCD Performed By: #### L [id number], L501.9520, L501.5200, L500.4100, L100.0100, L500.4050 #### [facility] [address] [place], [address] MCV (RBC) [Entitic vol] 88.3 fL Normal 81-99 [facility] Comment on above: Order Comment: Order Date: 11/01/24 Order Info: [id number] - CBCD Performed By: #### L [id number], L501.9520, L501.5200, L500.4100, L100.0100, L500.4050 #### [facility] [address] [place], [address] Monocytes/100 WBC (Bld) 6.6 % Normal 0-10 [facility] Comment on above: Order Comment: Order Date: 11/01/24 Order Info: [id number] - CBCD Performed By: #### L 501.9985, L501.9520, L501.5200, L500.4100, L100.0100, L500.4050 #### [facility] [address] [place], [address] Neutrophils/100 WBC (Bld) 58.9 % Normal 47-70 [facility] Comment on above: Order Comment: Order Date: 11/01/24 Order Info: [id number] - CBCD Performed By: #### L [id number], L501.9520, L501.5200, L500.4100, L100.0100, L500.4050 #### [facility] [address] [place], [address] Nucleated RBC (Bld) [#/Vol] 0 10*3/uL Normal 0-5 [facility] Comment on above: Order Comment: Order Date: 11/01/24 Order Info: [id number] - CBCD Performed By: #### L [id number], L501.9520, L501.5200, L500.4100, L100.0100, L500.4050 #### [facility] [address] [place], [address] Platelet mean volume (Bld) [Entitic vol] 10.8 fL Normal 6.2-12.0 [facility] Comment on above: Order Comment: Order Date: 11/01/24 Order Info: [id number] - CBCD Performed By: #### L [id number], L501.9520, L501.5200, L500.4100, L100.0100, L500.4050 #### [facility] [address] [place], [address] Platelets (Bld) [#/Vol] 273 10*3/uL Normal 150-450 [facility] Comment on above: Order Comment: Order Date: 11/01/24 Order Info: [id number] - CBCD Performed By: #### L [id number], L501.9520, L501.5200, L500.4100, L100.0100, L500.4050 #### [facility] [address] [place], [address] RBC (Bld) [#/Vol] 5.73 10*6/uL High 4.2-5.4 [facility] Comment on above: Order Comment: Order Date: 11/01/24 Order Info: [id number] - CBCD Performed By: #### L 501.9985, L501.9520, L501.5200, L500.4100, L100.0100, L500.4050 #### [facility] [address] [place], [place], [id number] RDW SD 42.1 fl Normal 35.1-43.9 [facility] Comment on above: Order Comment: Order Date: 11/01/24 Order Info: [id number] - CBCD Performed By: #### L 501.9985, L501.9520, L501.5200, L500.4100, L100.0100, L500.4050 #### [facility] [address] [place], [place], [id number] WBC (Bld) [#/Vol] 10.3 10*3/uL Normal 4.4-11.0 [facility] Comment on above: Order Comment: Order Date: 11/01/24 Order Info: [id number] - CBCD Performed By: #### L 501.9985, L501.9520, L501.5200, L500.4100, L100.0100, L500.4050 #### [facility] [address] [facility] [place], [place], [id number] Calculated very low density lipoprotein (VLDL) cholesterol measurementOrdered By: Beata Atkins on 11-01-2024 Calculated very low density lipoprotein (VLDL) cholesterol measurement 31 mg/dL 5-40 [facility] Carbon dioxide, total [Moles /volume] in Central venous bloodOrdered By: Beata Atkins on 11-01-2024 CO2 [Moles/Vol] 22.8 mmol/L 21.0-32.0 [facility] Chloride assayOrdered By: Archana Atkins on 11-01-2024 Chloride [Moles/Vol] 98 mmol/L 98-108 [facility] Comprehensive Metabolic Prof ilon 11-01-2024 Albumin [Mass/Vol] 4.3 g/dL Normal 3.5-5.0 [facility] Comment on above: Order Comment: Order Date: 11/01/24 Order Info: [id number] - CMP Order Info: [id number] - LIPID Order Info: [id number] - MG Order Info: [id number] - TSH Performed By: #### L 501.9985, L501.9520, L501.5200, L500.4100, L100.0100, L500.4050 #### [facility] [address] [place], [address] Albumin/Globulin [Mass ratio] 1.2 {ratio} Normal 0.9-2.4 [facility] Comment on above: Order Comment: Order Date: 11/01/24 Order Info: [id number] - CMP Order Info: [id number] - LIPID Order Info: [id number] - MG Order Info: 3 - TSH Performed By: #### L 501.9985, L501.9520, L501.5200, L500.4100, L100.0100, L500.4050 #### [facility] [address] [place], [place], [address] ALK PHOS 145 U/L High 35-104 [facility] Comment on above: Order Comment: Order Date: 11/01/24 Order Info: 86-1 - CMP Order Info: [id number] - LIPID Order Info: [id number] - MG Order Info: 3 - TSH Performed By: #### L 501.9985, L501.9520, L501.5200, L500.4100, L100.0100, L500.4050 #### [facility] [address] [place], [address] ALT [Catalytic activity/Vol] 32 U/L Normal <=34 [facility] Comment on above: Order Comment: Order Date: 11/01/24 Order Info: [id number] - CMP Order Info: [id number] - LIPID Order Info: [id number] - MG Order Info: [id number] - TSH Performed By: #### L 501.9985, L501.9520, L501.5200, L500.4100, L100.0100, L500.4050 #### [facility] [address] [place], [address] AST [Catalytic activity/Vol] 29 U/L Normal <=31 [facility] Comment on above: Order Comment: Order Date: 11/01/24 Order Info: [id number] - CMP Order Info: [id number] - LIPID Order Info: [id number] - MG Order Info: [id number] - TSH Performed By: #### L 501.9985, L501.9520, L501.5200, L500.4100, L100.0100, L500.4050 #### [facility] [address] [place], [address] Bilirubin [Mass/Vol] 0.65 mg/dL Normal 0.00-1.30 [facility] Comment on above: Order Comment: Order Date: 11/01/24 Order Info: 86-1 - CMP Order Info: [id number] - LIPID Order Info: [id number] - MG Order Info: [id number] - TSH Performed By: #### L 501.9985, L501.9520, L501.5200, L500.4100, L100.0100, L500.4050 #### [facility] [address] [place], [address] BUN/CRE 15.0 RATIO Normal 10-20 [facility] Comment on above: Order Comment: Order Date: 11/01/24 Order Info: [id number] - CMP Order Info: [id number] - LIPID Order Info: [id number] - MG Order Info: [id number] - TSH Performed By: #### L 501.9985, L501.9520, L501.5200, L500.4100, L100.0100, L500.4050 #### [facility] [address] [place], [address] Calcium [Mass/Vol] 9.9 mg/dL Normal 7.6-11.0 [facility] Comment on above: Order Comment: Order Date: 11/01/24 Order Info: 86-1 - CMP Order Info: [id number] - LIPID Order Info: [id number] - MG Order Info: [id number] - TSH Performed By: #### L 501.9985, L501.9520, L501.5200, L500.4100, L100.0100, L500.4050 #### [facility] [address] [place], [address] Chloride [Moles/Vol] 98 mmol/L Normal 98-108 [facility] Comment on above: Order Comment: Order Date: 11/01/24 Order Info: 86-1 - CMP Order Info: [id number] - LIPID Order Info: [id number] - MG Order Info: [id number] - TSH Performed By: #### L 501.9985, L501.9520, L501.5200, L500.4100, L100.0100, L500.4050 #### [facility] [address] [place], [address] CO2 [Moles/Vol] 22.8 mmol/L Normal 21.0-32.0 [facility] Comment on above: Order Comment: Order Date: 11/01/24 Order Info: 86-1 - CMP Order Info: [id number] - LIPID Order Info: [id number] - MG Order Info: [id number] - TSH Performed By: #### L 501.9985, L501.9520, L501.5200, L500.4100, L100.0100, L500.4050 #### [facility] [address] [place], [address] Creatinine [Mass/Vol] 0.77 mg/dL Normal 0.70-1.20 [facility] Comment on above: Order Comment: Order Date: 11/01/24 Order Info: [id number] - CMP Order Info: [id number] - LIPID Order Info: [id number] - MG Order Info: 3 - TSH Performed By: #### L 501.9985, L501.9520, L501.5200, L500.4100, L100.0100, L500.4050 #### [facility] [address] [place], [place], [id number] GAP 14 Normal 5-15 [facility] Comment on above: Order Comment: Order Date: 11/01/24 Order Info: [id number] - CMP Order Info: [id number] - LIPID Order Info: [id number] - MG Order Info: 3016-3 - TSH Performed By: #### L 501.9985, L501.9520, L501.5200, L500.4100, L100.0100, L500.4050 #### [facility] [address], [address] GFR/1.73 sq M.predicted among non-blacks MDRD (S/P/Bld) [Vol rate/Area] 92 mL/min/{1.73_m2} Normal >60 [facility] Comment on above: Order Comment: Order Date: 11/01/24 Order Info: [id number] - CMP Order Info: [id number] - LIPID Order Info: [id number] - MG Order Info: 3016-3 - TSH Result Comment: mL/m in/1.73m2 CKD-EPI Creatinine Equation (2020) Performed By: #### L 501.9985, L501.9520, L501.5200, L500.4100, L100.0100, L500.4050 #### [facility] [address] [place], [address] Globulin (S) [Mass/Vol] 3.5 g/dL Normal 2.2-4.2 [facility] Comment on above: Order Comment: Order Date: 11/01/24 Order Info: [id number] - CMP Order Info: [id number] - LIPID Order Info: [id number] - MG Order Info: 3016-3 - TSH Performed By: #### L 501.9985, L501.9520, L501.5200, L500.4100, L100.0100, L500.4050 #### [facility] [address] [place], [address] Glucose [Mass/Vol] 101 mg/dL High 70-99 [facility] Comment on above: Order Comment: Order Date: 11/01/24 Order Info: 0786-1 - CMP Order Info: [id number] - LIPID Order Info: [id number] - MG Order Info: 3016-3 - TSH Performed By: #### L 501.9985, L501.9520, L501.5200, L500.4100, L100.0100, L500.4050 #### [facility] [address] [place], [address] Potassium [Moles/Vol] 3.9 mmol/L Normal 3.3-5.1 [facility] Comment on above: Order Comment: Order Date: 11/01/24 Order Info: 07- - CMP Order Info: [id number] - LIPID Order Info: [id number] - MG Order Info: 3016-3 - TSH Performed By: #### L 501.9985, L501.9520, L501.5200, L500.4100, L100.0100, L500.4050 #### [facility] [address] [place], [address] Sodium [Moles/Vol] 135 mmol/L Normal 133-145 [facility] Comment on above: Order Comment: Order Date: 11/01/24 Order Info: 0786-1 - CMP Order Info: [id number] - LIPID Order Info: [id number] - MG Order Info: 3016-3 - TSH Performed By: #### L 501.9985, L501.9520, L501.5200, L500.4100, L100.0100, L500.4050 #### [facility] [address] [place], [address] T PROT 7.8 g/dL Normal 5.9-8.4 [facility] Comment on above: Order Comment: Order Date: 11/01/24 Order Info: 0786-1 - CMP Order Info: [id number] - LIPID Order Info: [id number] - MG Order Info: 3016-3 - TSH Performed By: #### L 501.9985, L501.9520, L501.5200, L500.4100, L100.0100, L500.4050 #### [facility] [address] [place], [place], [address] Urea nitrogen [Mass/Vol] 12 mg/dL Normal 4-19 [facility] Comment on above: Order Comment: Order Date: 11/01/24 Order Info: 0786-1 - CMP Order Info: [id number] - LIPID Order Info: [id number] - MG Order Info: 3016-3 - TSH Performed By: #### L 501.9985, L501.9520, L501.5200, L500.4100, L100.0100, L500.4050 #### [facility] [address] [place], [place], [address] Eosinophil percentageOrdered By: Beata Atkins on 11-01-2024 Eosinophils/100 WBC (Bld) 1.7 % 0-5 [facility] Erythrocyte distribution wid th ratioOrdered By: Beata Atkins on 11-01-2024 Erythrocyte distribution width (RBC) [Ratio] 13.1 % 11.6-14.6 [facility] Erythrocyte distribution wid th standard deviationOrdered By: Beata Atkins on 11-01-2024 Erythrocyte distribution width (RBC) [Ratio] 42.1 fl 35.1-43.9 [facility] Glomerular filtration rate ( GFR) estimation/1.73 sq m using serum, plasma, or whole bOrdered By: Beata Atkins on 11-01-2024 GFR/1.73 sq M.predicted among non-blacks MDRD (S/P/Bld) [Vol rate/Area] 92 mL/min/{1.73_m2} >60 [facility] Comment on above: mL/min/1.73m2 CKD-EP I Creatinine Equation (2020) Hematocrit Auto (Bld) [Volum e fraction]Ordered By: Beata Atkins on 11-01-2024 Hematocrit (Bld) [Volume fraction] 50.6 % High 37-47 [facility] Hemoglobin A1con 11-01-2024 HbA1c (Bld) [Mass fraction] 6.5 % High <=5.6 [facility] Comment on above: Order Comment: Order Date: 11/01/24 Order Info: [id number] - A1C Result Comment: Norm al < 5.7 % Prediabetic 5.7 - 6.4 % Diabetic >or= 6.5 % Please note range changes. Performed By: #### L 501.9985, L501.9520, L501.5200, L500.4100, L100.0100, L500.4050 #### [facility] [place], [address] Hemoglobin A1c percentageOrd ered By: Beata Atkins on 11-01-2024 HbA1c (Bld) [Mass fraction] 6.5 % High <5.7 [facility] Comment on above: Normal < 5.7 % Predi abetic 5.7 - 6.4 % Diabetic >or= 6.5 % Please note range changes. Hemoglobin measurementOrdere d By: Beata Atkins on 11-01-2024 Hemoglobin (Bld) [Mass/Vol] 16.6 g/dL High 12.0-15.0 [facility] Immature granulocytes/100 WB C Auto (Bld)Ordered By: Beata Atkins on 11-01-2024 Immature granulocytes/100 WBC (Bld) 0.300 % 0.0-0.9 [facility] Comment on above: IG% - Immature Granu locytes (promyelocytes, myelocytes and metamyelocytes) > 1% indicates that a LEFT SHIFT is Present. LDL calc ser/plasOrdered By: Beata Atkins on 11-01-2024 Cholesterol in LDL [Mass/Vol] 159 mg/dL [facility] Comment on above: Clxmmzozxy=941-293 m g/dL & Higher Mmwf=631 mg/dL or greater Laboratory - Chemistry and C hemistry - challengeOrdered By: Beata Atkins on 11-01-2024 AST [Catalytic activity/Vol] 29 U/L <32 [facility] Lipid Profileon 11-01-2024 CHOL:HDL 4.65 Normal [facility] Comment on above: Order Comment: Order Date: 11/01/24 Order Info: 0786-1 - CMP Order Info: [id number] - LIPID Order Info: [id number] - MG Order Info: 3015-3 - TSH Performed By: #### L 501.9985, L501.9520, L501.5200, L500.4100, L100.0100, L500.4050 #### [facility] [address] [place], [address] Cholesterol [Mass/Vol] 242 mg/dL High <=200 [facility] Comment on above: Order Comment: Order Date: 11/01/24 Order Info: 0786 - CMP Order Info: [id number] - LIPID Order Info: [id number] - MG Order Info: 3 - TSH Result Comment: Chol esterol level, Desirable <200 mg/dL Borderline high cholesterol 200-239 mg/dL High cholesterol >=240 mg/dL Recommendations of the NCEP Adult Treatment Panel for the following risk-cutoff thresholds for the [place] population. Performed By: #### L 501.9985, L501.9520, L501.5200, L500.4100, L100.0100, L500.4050 #### [facility] [address] [place], [address] Cholesterol in HDL [Mass/Vol] 52 mg/dL Normal [facility] Comment on above: Order Comment: Order Date: 11/01/24 Order Info: [id number] - CMP Order Info: [id number] - LIPID Order Info: [id number] - MG Order Info: 3015-3 - TSH Result Comment: Nallely onal Cholesterol Education Program (NCEP) guidelines: <40 mg/dL: Low HDL-cholesterol (major risk factor for CHD) >= 60 mg/dL: High HDL-cholesterol (negative risk factor for CHD) HDL-cholesterol is affected by a number of factors, e.g. smoking, exercise, hormones, sex and age. Performed By: #### L 501.9985, L501.9520, L501.5200, L500.4100, L100.0100, L500.4050 #### [facility] [address] [place], [address] Cholesterol in LDL [Mass/Vol] 159 mg/dL Normal [facility] Comment on above: Order Comment: Order Date: 11/01/24 Order Info: 86-1 - CMP Order Info: [id number] - LIPID Order Info: [id number] - MG Order Info: 3016-3 - TSH Result Comment: Bord vcoepv=462-801 mg/dL Higher Ugfz=737 mg/dL or greater Performed By: #### L 501.9985, L501.9520, L501.5200, L500.4100, L100.0100, L500.4050 #### [facility] [address] [place], [address] Cholesterol in VLDL [Mass/Vol] 31 mg/dL Normal 5-40 [facility] Comment on above: Order Comment: Order Date: 11/01/24 Order Info: [id number] - CMP Order Info: - LIPID Order Info: [id number] - MG Order Info: 301-3 - TSH Performed By: #### L 501.9985, L501.9520, L501.5200, L500.4100, L100.0100, L500.4050 #### [facility] [address] [place], [address] Triglyceride [Mass/Vol] 154 mg/dL Normal [facility] Comment on above: Order Comment: Order Date: 11/01/24 Order Info: 07- - CMP Order Info: - LIPID Order Info: [id number] - MG Order Info: [id number] - TSH Result Comment: The drugs N-Acetylcysteine and Metamizole may falsely depress this assay. Normal range: <150 mg/dL Borderline High: 150-199 mg/dL High: 200-499 mg/dL Very High: >500 mg/dL Performed By: #### L 501.9985, L501.9520, L501.5200, L500.4100, L100.0100, L500.4050 #### [facility] [address] [place], [place], [address] MCV (mean corpuscular volume ) determinationOrdered By: Beata Atkins on 11-01-2024 MCV (RBC) [Entitic vol] 88.3 fL 81-99 [facility] Magnesiumon 11-01-2024 Magnesium [Mass/Vol] 2.1 mg/dL Normal 1.5-2.2 [facility] Comment on above: Order Comment: Order Date: 11/01/24 Order Info: 0786-1 - CMP Order Info: [id number] - LIPID Order Info: [id number] - MG Order Info: 3016-3 - TSH Performed By: #### L 501.9985, L501.9520, L501.5200, L500.4100, L100.0100, L500.4050 #### [facility] [address] [place], [place], [address] Magnesium measurement (mass/ volume)Ordered By: Beata Atkins on 11-01-2024 Magnesium (Unsp spec) [Mass/Vol] 2.1 mg/dL 1.5-2.2 [facility] Mean corpuscular hemoglobin (MCH) determinationOrdered By: Beata Atkins on 11-01-2024 MCH (RBC) [Entitic mass] 29.0 pg 27.0-32.0 [facility] Mean corpuscular hemoglobin concentration (MCHC) determinationOrdered By: Beata Atkins on 11-01-2024 MCHC (RBC) [Mass/Vol] 32.8 g/dL 32-36 [facility] Mean platelet volume determi nationOrdered By: Beata Atkins on 11-01-2024 Platelet mean volume (Bld) [Entitic vol] 10.8 fL 6.2-12.0 [facility] Monocyte percentageOrdered B y: Beata Atkins on 11-01-2024 Monocytes/100 WBC (Bld) 6.6 % 0-10 [facility] Neutrophil percentageOrdered By: Beata Atkins on 11-01-2024 Neutrophils/100 WBC (Bld) 58.9 % 47-70 [facility] Nucleated red blood cell per centageOrdered By: Beata Atkins on 11-01-2024 Nucleated RBC/100 WBC (Bld) [Ratio] 0 % 0-5 [facility] Platelet countOrdered By: Archana Atkins on 11-01-2024 Platelets (Bld) [#/Vol] 273 10*3/uL 150-450 [facility] Potassium measurement (mass/ volume)Ordered By: Beata Atkins on 11-01-2024 Potassium (Unsp spec) [Mass/Vol] 3.9 mmol/L 3.3-5.1 [facility] RBC Auto (Bld) [#/Vol]Ordere d By: Beata Atkins on 11-01-2024 RBC (Bld) [#/Vol] 5.73 10*6/uL High 4.2-5.4 [facility] Screening total cholesterol/ high density lipoprotein (HDL) cholesterol ratioOrdered By: Beata Atkins on 11-01-2024 Cholesterol.total/Choles terol in HDL [Mass ratio] 4.65 {ratio} [facility] Serum creatinine measurement (mass/volume)Ordered By: Beata Atkins on 11-01-2024 Creatinine [Mass/Vol] 0.77 mg/dL 0.70-1.20 [facility] Serum globulin measurementOr dered By: Beata Atkins on 11-01-2024 Globulin (S) [Mass/Vol] 3.5 g/dL 2.2-4.2 [facility] Serum glucose measurement (m ass/volume)Ordered By: Beata Atkins on 11-01-2024 Glucose [Mass/Vol] 101 mg/dL High 70-99 [facility] Serum or plasma alanine amador otransferase (ALT) measurementOrdered By: Beata Atkins on 11-01-2024 ALT [Catalytic activity/Vol] 32 U/L <35 [facility] Serum or plasma albumin joseline urement (mass/volume)Ordered By: Beata Atkins on 11-01-2024 Albumin [Mass/Vol] 4.3 g/dL 3.5-5.0 [facility] Serum or plasma albumin/glob ulin mass ratioOrdered By: Beata Atkins on 11-01-2024 Albumin/Globulin [Mass ratio] 1.2 {ratio} 0.9-2.4 [facility] Serum or plasma alkaline maryjane sphatase measurementOrdered By: Beata Atkins on 11-01-2024 ALP [Catalytic activity/Vol] 145 U/L High 35-104 [facility] Serum or plasma calcium joseline urement (mass/volume)Ordered By: Beata Atkins on 11-01-2024 Calcium [Mass/Vol] 9.9 mg/dL 7.6-11.0 [facility] Serum or plasma cholesterol in HDL measurement (mass/volume)Ordered By: Beata Atkins on 11-01-2024 Cholesterol in HDL [Mass/Vol] 52 mg/dL >40 [facility] Comment on above: National Cholesterol Education Program (NCEP) guidelines:<40 mg/dL: Low HDL-cholesterol (major risk factor for CHD)>= 60 mg/dL: High HDL-cholesterol (negative risk factor for CHD)HDL-cholesterol is affected by a number of factors, e.g. smoking, exercise, hormones, sex and age. Serum or plasma cholesterol measurement (mass/volume)Ordered By: Beata Atkins on 11-01-2024 Cholesterol [Mass/Vol] 242 mg/dL High <201 [facility] Comment on above: Cholesterol level, D esirable <200 mg/dLBorderline high cholesterol 200-239 mg/dLHigh cholesterol >=240 mg/dLRecommendations of the NCEP Adult Treatment Panel for the following risk-cutoff thresholds for the [place] population. Serum or plasma urea nitroge n measurement (mass/volume)Ordered By: Beata Atkins on 11-01-2024 Urea nitrogen [Mass/Vol] 12 mg/dL 4-19 [facility] Sodium levelOrdered By: Earl Atkins on 11-01-2024 Sodium [Moles/Vol] 135 mmol/L 133-145 [facility] TSH DL <= 0.005 mIU/L QnOrde red By: Beata Atkins on 11-01-2024 TSH Qn 1.450 uIU/mL 0.300-4.200 [facility] Thyroid Stim Hormone (TSH)on 11-01-2024 TSH 1.450 uIU/mL Normal 0.300-4.200 [facility] Comment on above: Order Comment: Order Date: 11/01/24 Order Info: 0786- - CMP Order Info: [id number] - LIPID Order Info: [id number] - MG Order Info: 3015-3 - TSH Performed By: #### L 501.9985, L501.9520, L501.5200, L500.4100, L100.0100, L500.4050 #### [facility] [address] [place], [address] Total proteinOrdered By: Ashlee Atkins on 11-01-2024 Protein [Mass/Vol] 7.8 g/dL 5.9-8.4 [facility] Triglycerides measurementOrd ered By: Beata Atkins on 11-01-2024 Triglyceride [Mass/Vol] 154 mg/dL <199 [facility] Comment on above: The drugs N-Acetylcy steine and Metamizole may falsely depress this assay. Normal range: <150 mg/dLBorderline High: 150-199 mg/dLHigh: 200-499 mg/dLVery High: >500 mg/dL Vitamin D,25 Hydroxyon 11-01 Vitamin D 25-OH 22.3 ng/mL Low 30-100 [facility] Comment on above: Order Comment: Order Date: 11/01/24 Order Info: [id number] - CMP Order Info: [id number] - LIPID Order Info: - MG Order Info: [id number] - TSH Result Comment: Gabriella min D Status Deficiency: <20 ng/mL (50nmol/L) Insufficiency: 20-30 ng/mL (50-75 nmol/L) Sufficiency: 30-100 ng/mL (75-250 nmol/L) Toxicity: >100 ng/mL (>250 nmol/L) Performed By: #### L 506.1001 #### [facility] [address] [place], [place], [address] White blood cell (WBC) count Ordered By: Beata Atkins on 11-01-2024 WBC (Bld) [#/Vol] 10.3 10*3/uL 4.4-11.0 [facility]OBGYWM[facility] DAVEIBIS ([id number]) 1970 F Date Time Provider Department 07/04/24 KIERAN KHAN During your visit today, we recorded the following information about you: Ruthie Guzman RN 07/04/2024 12:48 PM Signed ----- Message from Kieran Khan MD sent at 07/04/2024 7:53 AM EST ----- Did she have somewhere else? If not please have her schedule thanks. Kieran Khan MD ----- Message ----- From: Shirley Harley Sent: 07/02/2024 7:45 AM EST To: Kieran Khan MD Recently, the patient listed above had a breast imaging exam which recommended additional imaging of an abnormality for further workup. As of this date we are unable to document whether this has been completed. Please have your patient call [phone] or [phone]. [phone] to schedule a breast imaging exam appointment for additional evaluation. Please ensure that you have placed either an electronic or hard copy order for the additional exam recommended from the screening mammogram report. We understand that this is an inconvenience to you and greatly appreciate your cooperation. If your patient has already scheduled an appointment, please disregard this letter. Sincerely, [facility] Ruthie Guzman, SUZI 07/04/2024 12:49 PM Signed Left message for patient to call office. See note below regarding call back imaging patient did not follow up with yet. SUZI Krueger Trisha, SUZI 07/06/2024 3:56 PM Signed Left message for patient to call office or check [employer] message and respond there. SUZI Krueger Karmon, MD 07/08/2024 3:05 PM Signed Noted. Bal Michelle MD Allergies As of Date: 07/04/2024 Noted Allergy Reaction CEPHALEXIN 09/16/2017 6 - Diarrhea Date Reviewed: 05/11/2024 Reviewed by: Kieran Khan MD - Fully Assessed Reason for Visit: Appointment [186] Prescriptions as of 07/08/2024 - OZEMPIC 2 mg/dose (8 mg/3 mL) pen injector INJECT SUBCUTANEOUSLY ONCE A WEEK - JARDIANCE 10 mg tablet Take 1 tablet by mouth once daily. - esomeprazole (NEXIUM) 20 mg capsule Take 20 mg by mouth daily at 6 am. - loratadine (CLARITIN) 10 mg tablet Take 10 mg by mouth once daily. 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 test: negative UNIVERSAL PROTOCOL / SAFETY CHECKLIST Procedure to be Performed: EMB Sign In: A Moment of CARE was completed. Personnel directly involved with the procedure wore the appropriate PPE (Personal Protective Equipment). Patient/Surrogate Stated/Verified: PATIENT VERIFIED(optional for EMERGENT procedures): Patient name, Date of , Relevant allergies, and The intended procedure Time Out Communication: Intended patient and procedure match the source documents. Consent documented and matches the intended procedure. No implant(s) inserted. Sign Out: SIGN OUT (optional for EMERGENT procedures): All specimen containers correctly labeled. All instruments, equipment, possible retained foreign bodies accounted for. Post-procedure follow-up management communicated and Plan of Care Visit completed when applicable. Kieran Khan M.D. PROCEDURE: EXTERNAL GENITALIA: Normal in appearance without lesions VAGINA: Normal in appearance without lesions BIOPSY: Speculum placed into the vagina with excellent visualization of the cervix. Cervix cleaned with betadine. Anterior lip of cervix grasped with single toothed tenaculum. Uterus sounded to 9 cm. Pipelle inserted into the uterus without difficulty and endometrial biopsy obtained. Specimen labeled and sent to pathology. Procedure Summary: Patient tolerated procedure well.-moderate pain ASSESSMENT: post menopausal bleeding PLAN: Specimens labeled and sent to Pathology. Will notify patient of results in 1-2 weeks. Post-procedure instructions reviewed and written material given to the patient. Kieran Khan MD [place], [place] 05/11/2024 9:07 AM Signed YOUR RECOVERY After your biopsy you may have: Vaginal bleeding (less than a normal menstrual period) Mild cramping Do NOT put anything in the vagina for 1 week after your endometrial biopsy. This includes: tampons douches and refraining from having sexual intercourse If you have any discomfort, you may take an over the counter pain medication (motrin, advil, ibuprofen, tylenol, etc). If this does not relieve your discomfort, contact the office. It is okay to wear a sanitary pad until the discharge and spotting stops. RISKS Although problems seldom occur with endometrial biopsies, there can be some complications. You may feel faint during and shortly after the procedure as well as have some bleeding after the procedure. There is also a risk of infection after the procedure. These complications are rare and can be easily treated. You should contact you doctor is you have any of the following: Heavy bleeding (more than your normal period) Bleeding with clots Severe abdominal pain Fever (more than 100.4F) Foul smelling vaginal discharge RESULTS We will have the results of your biopsy in 1-2 weeks. If you do not hear the results of your biopsy after 2 weeks, please contact the office for the results. If you have any additional questions or concerns please do not hesitate to contact the office. Referring Provider: KIERAN KHAN [[id number]] Allergies As of Date: 05/11/2024 Noted Allergy Reaction CEPHALEXIN 09/16/2017 6 - Diarrhea Date Reviewed: 05/11/2024 Reviewed by: Kieran Khan MD - Fully Assessed Reason for Visit: Endometrial Biopsy [7501] Primary Visit Diagnosis:PMB (postmenopausal bleeding) [N95.0] Order(s):UA DIP,URINE HCG (POC) [[id number]] Order #: [id number]. #:[id number] [[id number]] Order #: [id number] Prescriptions as of 05/11/2024 - OZEMPIC 2 mg/dose (8 mg/3 mL) pen injector INJECT SUBCUTANEOUSLY ONCE A WEEK - JARDIANCE 10 mg tablet Take 1 tablet by mouth once daily. - esomeprazole (NEXIUM) 20 mg capsule Take 20 mg by mouth daily at 6 am. - loratadine (CLARITIN) 10 mg tablet Take 10 mg by mouth once daily. Problem List As Of Date 05/11/2024 Noted Resolved Acute embolism and thrombosis of unspecified de*06/16/2022 04/18/2024 Type 2 diabetes mellitus without complications *06/16/2022 Obesity, Class II, BMI 35-39.9 [E66.812] 10/04/2020 Post-thrombotic syndrome of left lower extremit*10/14/2018 Personal history of DVT (deep vein thrombosis) *10/14/2018 Secondary polycythemia [D75.1] 06/16/2022 Other instructions from your clinician: YOUR RECOVERY After your biopsy you may have: Vaginal bleeding (less than a normal menstrual period) Mild cramping Do NOT put anything in th (more content not included)... Normal [facility] SURGICAL PATHOLOGYon 024 CASE REPORT Normal [facility] Comment on above: Order Comment: Speci men Type: TISSUE SPECIMEN Ordering Facility: [facility] Address: [address] [place] [address] Result Comment: Surg ica Pathology Report Case: [id number] Authorizing Provider: Kieran Khan MD Collected: 05/11/2024 10:03 AM Ordering Location: OB/Gynecology Received: 05/11/2024 12:08 PM Pathologist: Roland Zapata MD Specimen: Endometrium, Biopsy Performed By: #### S #### [facility] CLIA [id number] [address] [place] [address] [place] 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 E ndometrium, biopsy: - Benign endocervical and endometrial epithelium. ACV/mm/05/13/2024 Performed By: #### S #### [facility] CLIA [id number] [address] [place] [address] [place] FINAL PERFORMING LAB Normal [facility] Comment on above: Order Comment: Speci men Type: TISSUE SPECIMEN Ordering Facility: [facility] Address: [address] [place] [address] Result Comment: Diag nostic interpretation performed at [facility], [address] [place], [place] [address] CLIA# [id number] Freezer Person: Enrike Jean M.D. Performed By: #### S #### [facility] CLIA [id number] [address] [place] [address] [place] GROSS DESCRIPTION Normal [facility] Comment on above: Order Comment: Speci men Type: TISSUE SPECIMEN Ordering Facility: [facility] Address: [address] [place] [address] Result Comment: A. E ndometrium, Biopsy Received in formalin are multiple warren-red, soft feathery segments of tissue and red-brown hemorrhagic material admixed with gelatinous material aggregating to 1.7 x 0.9 x 0.1 cm. Totally submitted in one cassette. KDK May 11, 2024 4:44 PM Gross examination performed at [facility], [address] [place] [address] Performed By: #### S #### [facility] CLIA [id number] [address] [place] [address] [place] UA DIP,URINE HCG (POC)on Beta HCG ( test) Ql (U) Negative Negative [facility] Comment on above: Location:[facility], [address], [place], [address] Wide Area Network Administrator (POCT) Internal QC OK [facility] Location:[facility], [address], [place], [address] [facility] POINT OF CARE [facility] Claudia 04-27-2024 CNPN Telephone (OBGYWM) IBIS ACOSTA ([id number]) 1970 F Date Time Provider Department 04/27/24 KIERAN KHAN OBGYWM During your visit today, we recorded the following information about you: Zehra Dinero RN 04/27/2024 4:33 PM Signed ----- Message from Kieran Khan MD sent at 04/27/2024 4:28 PM EST ----- Let her know on US uterus and ovaries look normal. Recommend f/u for biopsy as scheduled. MD Bar Pennington Tara, RN 04/27/2024 4:34 PM Signed Left message for patient to call office. SUZI Diaz Annalee, LPN 04/29/2024 10:26 AM Signed Patient notified Allergies As of Date: 04/27/2024 Noted Allergy Reaction CEPHALEXIN 09/16/2017 6 - Diarrhea Date Reviewed: 04/18/2024 Reviewed by: Kieran Khan MD - Fully Assessed Reason for Visit: Results [95] Prescriptions as of 04/29/2024 - OZEMPIC 2 mg/dose (8 mg/3 mL) pen injector INJECT SUBCUTANEOUSLY ONCE A WEEK - JARDIANCE 10 mg tablet Take 1 tablet by mouth once daily. - esomeprazole (NEXIUM) 20 mg capsule Take 20 mg by mouth daily at 6 am. - loratadine (CLARITIN) 10 mg tablet Take 10 mg by mouth once daily. 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 Heterogeneous myometrium. Endometrium measures 4.3 mm. Neither ovary is visualized. No adnexal masses were observed. There is no free fluid visualized in the peritoneal cavity. Recommendations Recommend endometrial evaluation as clinically indicated. History Medical History Surgery: Endometrial Ablation Method Transabdominal, transvaginal, 3D ultrasound examination, Color Doppler examination. View: Suboptimal view: restricted by increased bowel gas Uterus Uterus: Visualized Uterus position: axial Myometrium: heterogeneous Endometrium: homogenous Cervix details: normal Uterus length 66 mm Uterus width 37 mm Uterus height 28 mm Uterus Vol 35.7 cm Endometrial thickness, total 4.3 mm Fibroids: No fibroids identified Polyps: No polyps identified Right Ovary Rt ovary: Not visualized Left Ovary Lt ovary: Not visualized Cul de Sac Visualized. no free fluid visualized Performed By: Payton Friend RDMS Read By: Carine Vale M.D. MATERNAL MEDICINE [facility] US Pelvison 04-26-2024 Radiology Study observation (narrative) [facility] 04-[facility] CNPN Telephone (RADMN) IBIS ACOSTA ([id number]) 1970 F Date Time Provider Department 04/20/24 SANDRA ALLEN RADMN During your visit today, we recorded the following information about you: Jose Manuel Pina 04/20/2024 9:22 AM Signed Patient called to schedule CB imaging Allergies As of Date: 04/20/2024 Noted Allergy Reaction CEPHALEXIN 09/16/2017 6 - Diarrhea Date Reviewed: 04/18/2024 Reviewed by: Kieran Khan MD - Fully Assessed Reason for Visit: Mammogram Result Call Back [[id number]] Prescriptions as of 04/20/2024 - OZEMPIC 2 mg/dose (8 mg/3 mL) pen injector INJECT SUBCUTANEOUSLY ONCE A WEEK - JARDIANCE 10 mg tablet Take 1 tablet by mouth once daily. - esomeprazole (NEXIUM) 20 mg capsule Take 20 mg by mouth daily at 6 am. - loratadine (CLARITIN) 10 mg tablet Take 10 mg by mouth once daily. 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 Ibis Acosta is a 53 year old female who presents for problem visit for PMB. HPI: 53 YOF w/ no mensews for > 2 years, they were regular up until that time. Had a lot of cramping w/ them and still had menses even after an endometrial ablation (done in [place]). Had a h/o of DVT after a trauma to her leg, no longer on anticoagulation. 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 Sometimes some intermittent cramping. Hasn't had a pap in many years. Were always normal in the past. 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 History Comments: Sexual Activity: Yes; Male Contraception: Vasectomy PAST MEDICAL HISTORY Diagnosis Date Acid reflux Anxiety state Diabetes mellitus (HCC) DVT (deep venous thrombosis) (HCC) Erythrocytosis PAST SURGICAL HISTORY Procedure Laterality Date LITHOTRIPSY XTRCORP SHOCK WAVE REMOVAL GALLBLADDER TOOTH EXTRACTION FAMILY HISTORY Problem Relation Age of Onset Heart Mother packemaker Heart Attack Father Breast Cancer Sister half sister Social History Tobacco Use Smoking status: Never Smokeless tobacco: Never Vaping Use Vaping status: Never Used Substance Use Topics Alcohol use: Yes Drug use: Never Current Outpatient Medications Medication Sig OZEMPIC 2 mg/dose (8 mg/3 mL) pen injector INJECT SUBCUTANEOUSLY ONCE A WEEK JARDIANCE 10 mg tablet Take 1 tablet by mouth once daily. esomeprazole (NEXIUM) 20 mg capsule Take 20 mg by mouth daily at 6 am. loratadine (CLARITIN) 10 mg tablet Take 10 mg by mouth once daily. No current facility-administered medications for this visit. Allergies As of Date: 04/18/2024 Allergen Noted Reaction CEPHALEXIN 09/16/2017 Diarrhea Fully Assessed 04/18/2024 REVIEW OF SYSTEMS Abdomen: some constipation on ozempic Expanded ROS: N/A Allergies and current medication updated:Yes SENSITIVE EXAM: The sensitive examination was discussed with the Patient or Patient's Authorized Supervisor [employer]ing [employer]. As applicable, any other physician, advance practice provider, medical student, or other health professional student that will be observing or involved in the sensitive examination for educational or training purposes was discussed with the Patient or Authorized Supervisor [employer]oc[employer]. The Patient or Authorized Supervisor [employer]oc[employer] has agreed to proceed with the sensitive examination. (Sensitive examination includes inspection and/or palpation of the breasts, pelvis, prostate and anorectal regions). EXAM: Wt 247 lb (112.0kg) GENERAL: pleasant, female in no apparent distress ABDOMEN: soft, non-tender, and no masses PELVIC: external genitalia normal, normal Bartholin's glands, urethra, [place]'s glands, no vulvar lesions, no cervical lesions, good vaginal support, physiologic discharge present, normal appearing perineal body and perianal region BIMANUAL: uterus normal size, shape and consistency, no adnexal masses, and non-tender ASSESSMENT AND PLAN: Assessment AND Plan Encounter for screening for malignant neoplasm of cervix Orders: PAP TEST Special screening examination for human papillomavirus (HPV) Orders: PAP TEST PMB (postmenopausal bleeding) REcommend EMB, declines today, will schedule needs annual, schedule annual Orders: ENDOMETRIAL BIOPSY PELVIC US WHI; Future Encounter for screening mammogram for malignant neoplasm of breast Orders: JENNIE SCREENING W ROQUE; Future Medical Decision Making: Problems: Moderate: New problem with uncertain prognosis Data: Unique test(s) ordered: 3+ Risk: Moderate: Moderate risk from testing/treatment Medical Decision Making Level: 4 - Moderate MD Otto Pennington Rebecca L, MD 04/19/2024 5:05 PM Signed Addended by: KIERAN KHAN on: 04/19/2024 05:05 PM Modules accepted: Orders Referring Provider: NO PCP [956] Allergies As of Date: 04/18/2024 Noted Allergy Reaction CEPHALEXIN 09/16/2017 6 - Diarrhea Date Reviewed: 04/18/2024 Reviewed by: Kieran Khan MD - Fully Assessed Reason for Visit: Vaginal Bleeding [203] Primary Visit Diagnosis:Encounter for screening for malignant neoplasm of cervix [Z12.4] Other Visit Diagnoses:Special screening examination for human papillomavirus (HPV) [Z11.51] PMB (postmenopausal bleeding) [N95.0] Encounter for screening (more content not included)... Normal [facility] HIGH RISK HUMAN PAPILLOMA NIURKA (HPV), PCR FOR DETECTION AND GENOTYPINGon 04-18-2024 HPV 16 Ag Ql (Unsp spec) Not detected Normal Not detec demi [facility] Comment on above: Order Comment: Speci men Type: FLUID SPECIMEN Ordering Facility: [facility] Address: [address] [place] [address] Performed By: #### H PVHRT #### [facility] CLIA [id number] [address] [place] [address] [place] HPV 18 Ag Ql (Unsp spec) Not detected Normal Not detec demi [facility] Comment on above: Order Comment: Speci men Type: FLUID SPECIMEN Ordering Facility: [facility] Address: [address] [place] [address] Performed By: #### H PVHRT #### [facility] CLIA [id number] [address] [place] [address] [place] HPV 31+33+35+39+45+51+52+56+ 58+59+66+68 DNA EDINSON+probe Ql (Cvx) Not detected Normal Not detected [facility] Comment on above: Order Comment: Speci men Type: FLUID SPECIMEN Ordering Facility: [facility] Address: [address] [place] [address] Result Comment: High Risk HPV Other Type includes HPV types 31, 33, 35, 39, 45, 51, 52, 56, 58, 59, 66 and 68. Performed By: #### H PVHRT #### [facility] CLIA [id number] [address] [place] [address] [place] JENNIE SCREENING W TOMOon 04-18 JENNIE SCREENING W ROQUE * * *Final Report* * * DATE OF EXAM: Apr 18 2024 11:39AM [id number] - JENNIE SCREENING W ROQUE / PROCEDURE REASON: Encounter for screening mammogram for malignant neoplasm of breast * * * * Physician Interpretation * * * * RESULT: [facility] [address] [place] [address] HISTORY: Patient is 53 years old and is seen for screening and is asymptomatic in both breasts. Patient states no personal history of breast cancer. Patient states no personal history of other cancers. COMPARISON STUDIES: This is a baseline study. MAMMOGRAM TECHNIQUE: The study was acquired using full field digital technology and interpreted from soft copy. Digital Breast Tomosynthesis (DBT) images were obtained and used to assist in the interpretation of this examination. Computer-aided detection was utilized by the radiologist in the interpretation of this examination. MAMMOGRAM FINDINGS: The breasts are heterogeneously dense, which may obscure small masses. There are multiple focal asymmetries in the middle depth lower inner quadrant of the left breast. This is best visualized on tomosynthesis CC view slice # 15 and MLO view slice # 35. No suspicious masses, calcifications or other abnormalities are seen in the right breast. IMPRESSION: Focal asymmetries in the left breast require additional evaluation. Diagnostic mammogram is recommended. BI-RADS Category 0: Incomplete: Needs Additional Imaging Evaluation RISK: Based on the Tyrer-Cuzick (TC) risk assessment model, this patient has a 12.1% lifetime risk of developing breast cancer, meaning they are at average risk for developing breast cancer. However, this is only an estimate based on available history provided on the patient's questionnaire. We encourage all patients to talk with their providers about these results, further recommendations for managing breast health, and appropriate supplemental screening options if the patient has dense breast tissue. Interpreting Radiologist: Sandra Allen M.D. Electronically signed on: 04/19/2024 Rod Buster Helper: LORI Transcribe Date/Time: Apr 18 2024 11:26A Dictated by: SANDRA ALLEN MD This examination was interpreted and the report reviewed and electronically signed by: SANDRA ALLEN MD on Apr 19 2024 4:37PM EST [id number] Normal [facility] PAP TESTon 04-18-2024 ADEQUACY Satisfactory for interpretation. Normal [facility] Comment on above: Order Comment: Speci men Type: FLUID SPECIMEN Ordering Facility: [facility] Address: [address] [place] [address] Performed By: #### L [id number] #### [facility] CLIA [id number] [address] [place] [address] [place] CASE REPORT Normal [facility] Comment on above: Order Comment: Zelda rogel Type: FLUID SPECIMEN Ordering Facility: [facility] Address: [address] [place] [address] Result Comment: Gyne cologic Cytology Report Case: [id number] Authorizing Provider: Kieran Khan MD Collected: 04/18/2024 10:10 AM Ordering Location: OB/Gynecology Received: 04/18/2024 01:09 PM First Screen: Alonso Franco, CT, ASCP Specimen: Pap Test, ThinPrep, Cervix Performed By: #### L [id number] #### [facility] CLIA [id number] [address] [place] [address] OF [facility] CLINICAL HISTORY, CYTOLOGY, HAMMER SHOP SUPERVISOR Routine Exam Normal [facility] Comment on above: Order Comment: Bladimiri men Type: FLUID SPECIMEN Ordering Facility: [facility] Address: [address] [place] [address] Result Comment: Post Menopausal Performed By: #### L [id number] #### [facility] CLIA [id number] [address] [place] [address] [place] FINAL PERFORMING LAB Normal [facility] Comment on above: Order Comment: Speci men Type: FLUID SPECIMEN Ordering Facility: [facility] Address: [address] [place] [address] Result Comment: Tech nical component, hvac service technician screening performed at [facility], [address] [place] [address] CLIA# [id number] Diagnostic interpretation performed at [facility], [address] [place] [address] CLIA# [id number] Freezer Person: Sahil Shelby M.D. Performed By: #### L [id number] #### [facility] CLIA [id number] [address] [place] [address] [place] INTERPRETATION, CYTOLOGY, HAMMER SHOP SUPERVISOR Normal [facility] Comment on above: Order Comment: Speci men Type: FLUID SPECIMEN Ordering Facility: [facility] Address: [address] [place] [address] Result Comment: Nega tive for intraepithelial lesion or malignancy. Performed By: #### L [id number] #### [facility] CLIA [id number] [address] [place] [address] [place] PAP DISCLAIMER COMMENT The Pap Smear is a screening test for cervical cancer. False negative results occur with all screening tests, emphasizing the need for rescreening at recommended intervals, and clinical correlation. Normal [facility] Comment on above: Order Comment: Speci men Type: FLUID SPECIMEN Ordering Facility: [facility] Address: [address] [place] [address] Performed By: #### L [id number] #### [facility] CLIA [id number] [address] [place] [address] [place] PAP RELIEF PILOT COMMENT This specimen has been analyzed by the ThinPrep Imaging System, an automated imaging and review system, which assists the laboratory in evaluating cells on ThinPrep Pap tests. Following automated imaging, selected montaño from every slide are reviewed by a hvac service technician. Normal [facility] Comment on above: Order Comment: Speci men Type: FLUID SPECIMEN Ordering Facility: [facility] Address: [address] [place] [address] Performed By: #### L [id number] #### [facility] CLIA [id number] [address] STATES OF [facility] CBC W Auto Differential pane l (Bld)on 07-03-2023 Basophils (Bld) [#/Vol] 0.09 x10*3/uL Normal 0.00-0.10 [facility] Comment on above: Performed By: #### 5 7021-8 #### BRODIE ROMERO ([id number]) [facility] ([facility]) [address] [place] [address] Basophils/100 WBC (Bld) 1.0 % Normal 0.0-2.0 [facility] Comment on above: Performed By: #### 5 7021-8 #### BRODIE ROMERO ([id number]) [facility] ([facility]) [address] [place] [address] Eosinophils (Bld) [#/Vol] 0.13 x10*3/uL Normal 0.00-0.70 [facility] Comment on above: Performed By: #### 5 7021-8 #### BRODIE ROMERO ([id number]) [facility] ([facility]) [address] [place] [address] 71285 Eosinophils/100 WBC (Bld) 1.4 % Normal 0.0-6.0 [facility] Comment on above: Performed By: #### 5 7021-8 #### BRODIE ROMERO ([id number]) [facility] ([facility]) [address] [place] [address] 97697 Erythrocyte distribution width (RBC) [Ratio] 14.1 % Normal 11.5-14.5 [facility] Comment on above: Performed By: #### 5 7021-8 #### BRODIE ROMERO ([id number]) [facility] ([facility]) [address] [place] [address] 28205 Hematocrit (Bld) [Volume fraction] 52.5 % High 36.0-46.0 [facility] Comment on above: Performed By: #### 5 7021-8 #### BRODIE ROMERO ([id number]) [facility] ([facility]) [address] [place] [address] 79104 Hemoglobin (Bld) [Mass/Vol] 16.6 g/dL High 12.0-16.0 [facility] Comment on above: Performed By: #### 5 7021-8 #### BRODIE ROMERO ([id number]) [facility] ([facility]) [address] [place] [address] 68684 Immature granulocytes (Bld) [#/Vol] 0.02 x10*3/uL Normal 0.00-0.70 [facility] Comment on above: Performed By: #### 5 7021-8 #### BRODIE ROMERO ([id number]) [facility] ([facility]) [address] [place] [address] 37218 Immature granulocytes/100 WBC (Bld) 0.2 % Normal 0.0-0.9 [facility] Comment on above: Result Comment: Darcy ture Granulocyte Count (IG) includes promyelocytes, myelocytes and metamyelocytes but does not include bands. Percent differential counts (%) should be interpreted in the context of the absolute cell counts (cells/UL). Performed By: #### 5 7021-8 #### BRODIE ROMERO ([id number]) [facility] ([facility]) [address] [place] [address] 82212 Lymphocytes (Bld) [#/Vol] 2.55 x10*3/uL Normal 1.20-4.80 [facility] Comment on above: Performed By: #### 5 7021-8 #### BRODIE ROMERO ([id number]) [facility] ([facility]) [address] [place] [address] 19899 Lymphocytes/100 WBC (Bld) 28.3 % Normal 13.0-44.0 [facility] Comment on above: Performed By: #### 5 7021-8 #### BRODIE ROMERO ([id number]) [facility] ([facility]) [address] [place] [address] 31541 MCH (RBC) [Entitic mass] 27.8 pg Normal 26.0-34.0 [facility] Comment on above: Performed By: #### 5 7021-8 #### BRODIE ROMERO ([id number]) [facility] ([facility]) [address] [place] [address] 94913 MCHC (RBC) [Mass/Vol] 31.6 g/dL Low 32.0-36.0 [facility] Comment on above: Performed By: #### 5 7021-8 #### BRODIE ROMERO ([id number]) [facility] ([facility]) [address] [place] [address] 53393 MCV (RBC) [Entitic vol] 88 fL Normal 80-100 U [facility] Comment on above: Performed By: #### 5 7021-8 #### BRODIE ROMERO ([id number]) [facility] ([facility]) [address] [place] [address] 63214 Monocytes (Bld) [#/Vol] 0.52 x10*3/uL Normal 0.10-1.00 [facility] Comment on above: Performed By: #### 5 7021-8 #### BRODIE ROMERO ([id number]) [facility] ([facility]) [address] [place] [address] 52369 Monocytes/100 WBC (Bld) 5.8 % Normal 2.0-10.0 U [facility] Comment on above: Performed By: #### 5 7021-8 #### BRODIE ROMERO ([id number]) [facility] ([facility]) [address] [place] [address] 15318 Neutrophils (Bld) [#/Vol] 5.70 x10*3/uL Normal 1.20-7.70 [facility] Comment on above: Result Comment: Perc ent differential counts (%) should be interpreted in the context of the absolute cell counts (cells/uL). Performed By: #### 5 7021-8 #### BRODIE ROMERO ([id number]) [facility] ([facility]) [address] [place] [address] 59712 Neutrophils/100 WBC (Bld) 63.3 % Normal 40.0-80.0 [facility] Comment on above: Performed By: #### 5 7021-8 #### BRODIE ROMERO ([id number]) [facility] ([facility]) [address] [place] [address] 92138 Nucleated RBC/100 WBC (Bld) [Ratio] 0.0 /100 WBCs Normal 0.0-0.0 [facility] Comment on above: Performed By: #### 5 7021-8 #### BRODIE ROMERO ([id number]) [facility] ([facility]) [address] [place] [address] 96482 Platelets (Bld) [#/Vol] 314 x10*3/uL Normal 150-450 [facility] Comment on above: Performed By: #### 5 7021-8 #### BRODIE ROMERO ([id number]) [facility] ([facility]) [address] [place] [address] 45978 RBC (Bld) [#/Vol] 5.98 x10*6/uL High 4.00-5.20 [facility] Comment on above: Performed By: #### 5 7021-8 #### BRODIE ROMERO ([id number]) [facility] ([facility]) [address] [place] [address] 81038 WBC (Bld) [#/Vol] 9.0 x10*3/uL Normal 4.4-11.3 [facility] Comment on above: Performed By: #### 5 7021-8 #### BRODIE ROMERO ([id number]) [facility] ([facility] [facility]) [address] [place] [address] Comprehensive metabolic 2000 panelon 07-03-2023 Albumin BCP dye [Mass/Vol] 4.5 g/dL Normal 3.4-5.0 [facility] Comment on above: Performed By: #### 2 4323-8 #### BRODIE ROMERO ([id number]) [facility] ([facility]) [address] [place] [address] ALP [Catalytic activity/Vol] 157 U/L High 33-110 [facility] Comment on above: Performed By: #### 2 432-8 #### BRODIE ROMERO ([id number]) [facility] ([facility]) [address] [place] [address] ALT With P-5'-P [Catalytic activity/Vol] 27 U/L Normal 7-45 [facility] Comment on above: Result Comment: Shena ents treated with Sulfasalazine may generate falsely decreased results for ALT. Performed By: #### 2 432-8 #### BRODIE ROMERO ([id number]) [facility] ([facility]) [address] [place] [address] Anion gap [Moles/Vol] 13 mmol/L Normal 10-20 [facility] Comment on above: Performed By: #### 2 4322-8 #### BRODIE ROMERO ([id number]) [facility] ([facility]) [address] [place] [address] AST With P-5'-P [Catalytic activity/Vol] 19 U/L Normal 9-39 [facility] Comment on above: Performed By: #### 2 432-8 #### BRODIE ROMERO ([id number]) [facility] ([facility]) [address] [place] [address] Bilirubin [Mass/Vol] 0.9 mg/dL Normal 0.0-1.2 [facility] Comment on above: Performed By: #### 2 432-8 #### BRODIE ROMERO ([id number]) [facility] ([facility]) [address] [place] [address] Calcium [Mass/Vol] 9.9 mg/dL Normal 8.6-10.3 [facility] Comment on above: Performed By: #### 2 432-8 #### BRODIE ROMERO ([id number]) [facility] ([facility]) [address] [place] [address] Chloride [Moles/Vol] 100 mmol/L Normal 98-107 [facility] Comment on above: Performed By: #### 2 4323-8 #### BRODIE ROMERO ([id number]) [facility] ([facility]) [address] [place] [address] CO2 [Moles/Vol] 30 mmol/L Normal 21-32 [facility] Comment on above: Performed By: #### 2 4323-8 #### BRODIE ROMERO ([id number]) [facility] ([facility]) [address] [place] [address] Creatinine [Mass/Vol] 0.83 mg/dL Normal 0.50-1.05 [facility] Comment on above: Performed By: #### 2 4323-8 #### BRODIE ROMERO ([id number]) [facility] ([facility]) [address] [place] [address]347 Glomerular filtration rate/1.73 sq M.predicted 84 mL/min/1.73m*2 Normal >60 [facility] Comment on above: Result Comment: Calc ulations of estimated GFR are performed using the 2020 CKD-EPI Study Refit equation without the race variable for the IDMS-Traceable creatinine methods. https://jasn.asnjournals.org/content/early/ASN.307 4671021 Performed By: #### 2 4323-8 #### BRODIE ROMERO ([id number]) [facility] ([facility]) [address] [place] [address] Glucose [Mass/Vol] 141 mg/dL High 74-99 [facility] Comment on above: Performed By: #### 2 4323-8 #### BRODIE ROMERO ([id number]) [facility] ([facility]) [address] [place] [address] Potassium [Moles/Vol] 4.3 mmol/L Normal 3.5-5.3 [facility] Comment on above: Performed By: #### 2 4323-8 #### BRODIE ROMERO ([id number]) [facility] ([facility]) [address] [place] [address] Protein [Mass/Vol] 7.4 g/dL Normal 6.4-8.2 [facility] Comment on above: Performed By: #### 2 4323-8 #### BRODIE ROMERO ([id number]) [facility] ([facility]) [address] [place] [address] Sodium [Moles/Vol] 139 mmol/L Normal 136-145 [facility] Comment on above: Performed By: #### 2 4323-8 #### BRODIE ROMERO ([id number]) [facility] ([facility]) [address] [place] [address] Urea nitrogen [Mass/Vol] 12 mg/dL Normal 6-23 [facility] Comment on above: Performed By: #### 2 4323-8 #### BRODIE ROMERO ([id number]) [facility] ([facility]) [address] [place], [place] [id number] Fibrin D-dimer FEUon 024 Fibrin D-dimer FEU (PPP) [Mass/Vol] <215 Normal <=500 [facility] Comment on above: Order Comment: The D -Dimer assay is reported in ng/mL Fibrinogen Equivalent Units (FEU). The results of this assay should NOT be used for the exclusion of Deep Vein Thrombosis and/or Pulmonary Embolism. Performed By: #### 4 8065-7 #### BRODIE ROMERO ([id number]) [facility] ([facility]) [address] [place], [place] [id number] Clinic Note - Heme Onc-Follo w Up Visiton 01-29-2023 Clinic Note - Heme Onc-Follow Up Visit Patient Visit Information: Visit Type: Follow Up Visit, Telephone Visit: A telephone visit (audio only) between the patient (at the originating site) and the provider (at the distant site) was utilized to provide this telehealth service. Verbal Consent for Encounter: Verbal consent was requested and obtained from patient, or from parent/guardian if minor, on this date for a telehealth visit. History of Present Illness: ID Statement: IBIS ACOSTA is a 52 year old Female Chief Complaint: deep vein thrombosis Interval History: Ibis Acosta is a 50 yo who presents with history of deep vein thrombosis. Prior work injury resulted in: Doppler ultrasound of the left lower extremity showed on 09/14/17: Totally occluding acute deep vein thrombosis of the left femoral, popliteal, posterior tibial and peroneal veins with severe reduction of the venous return. Totally occluding acute calf vein thrombosis of the left gastrocnemius veins with severe reduction of the venous return. No evidence of thrombosis of the left profunda femoral vein. No evidence of thrombosis of the left common femoral vein with mild reduction of the venous return. Anticoagulation with xarelto was started. Follow-up doppler ultrasound on 12/28/17 showed: Total resolution of the left lower extremity deep vein thrombosis found on 09/14/17. Chronic deep vein thrombosis of the left common femoral vein still noted. A point mutation in the factor II gene is not identified. Factor V Leiden mutation is not identified. There is overall improvement of function of left leg. Swelling and pain of the left lower leg continues. 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 [employer] and her work is sedentary, she gets increased swelling towards the end of the day which improves the next morning she does not have pain otherwise denies new swelling , chest pain or SOB she is tolerating xarelto otherwise well no nausea or vomiting no hematochezia or melena no recurrence of kidney stones and no new hematuria does not use compression socks , said they do not work for this only leg elevation no fever or cough no known fhx of blood clots non smoker Rest of past medical , surgical and family history as previously stated Review of Systems: Review of Systems: 10 points review of systems conducted except as in HPI Allergies and Intolerances: Allergies: Keflex: Drug, Unknown, Active Outpatient Medication Profile: * Patient Currently Takes Medications as of 29-Jan-2023 11:30 documented in Structured Notes Xarelto 20 mg oral tablet: Last Dose Taken: , 1 tab(s) orally once a day , Start Date: 29-Jan-2023 NexIUM 24HR: Last Dose Taken: , orally once a day metFORMIN 1000 mg oral tablet, extended release: Last Dose Taken: , 1 tab(s) orally once a day Medical History: Erythrocytosis: ICD-10: D75.1, Status: Active Crush injury of leg: ICD-10: S87.80XA, Status: Active Diabetes mellitus: ICD-10: E11.9, Status: Active Acid reflux: ICD-10: K21.9, Status: Active Anxiety: ICD-10: F41.9, Status: Active Deep vein thrombosis (DVT): ICD-10: I82.409, Status: Active Surg History: History of prior ablation treatment: ICD-10: Z98.890, Status: Active History of tooth extraction: ICD-10: K08.409, Status: Active S/P cholecystectomy: ICD-10: Z90.49, Status: Active Family History: Atrial fibrillation ( ) Family history of coronary artery bypass surgery (Father Age Unknown) Breast cancer (Sister Age Unknown) Diabetes mellitus (Sister Age Unknown) Social History: Social Substance History: Smoking Statusnever smoker Tobacco Usedenies Alcohol Useoccasionally Vitals and Measurements: Vitals: Temp: 35.4 HR: 70 RR: 16 BP: 165/98 SPO2%: 94 Measurements: HT(cm): 180.5 WT(kg): 121.7 BSA: 2.47 BMI: 37.3 Last 3 Weights & Heights: Date: Weight/Scale Type:Height: 29-Jan-2023 11:09988.4 kg 180.5 cm 16-Jun-2022 11:80970.7 kg 180.5 cm Physical Exam: Constitutional: Well developed, awake/alert/oriented x3, no distress, alert and cooperative Eyes: PERRL, EOMI, clear sclera, no conjunctival pallor ENMT: mucous membranes moist, no lesions seen Head/Neck: Neck supple, thyroid without mass or tenderness, trachea midline, no cervical or supraclavicular lymphadenopathy Respiratory/Thorax: CTAB, normal breath sounds with good chest expansion, no crackles or wheezes Cardiovascular: Regular, rate and rhythm, no murmurs, normal S 1and S 2 Gastrointestinal: Nondistended, soft, non-tender, no rebound tenderness or guarding, no masses palpable, no organomegaly Musculoskeletal: ROM intact, no joint swelling, normal strength, no focal tenderness Extremities: left leg swelling in calf > right with some stasis changes, mild tenderness, no major (more content not included)... Normal [facility]3] Basophil percentageOrdered B y: Mecca Corcoran on 01-26-2023 Bilirubin [Mass/Vol] 0.40 mg/dL 0.20-1.00 [facility] Comment on above: For patients on eltr ombopag therapy, use of Dimension [place] TBIL is not recommended. Chloride [Moles/Vol] 104 mmol/L 98-107 [facility] Cholesterol [Mass/Vol] 220 mg/dL <200 [facility] Comment on above: <200 mg/dL Desirable 200-240 mg/dL Borderline >240 mg/dL High Risk Glucose [Mass/Vol] 303 mg/dL 74-106 [facility] Comment on above: Glucose result great er than or equal to 200 mg/dLsuggests DIABETES MELLITUS per A.D.A. criteria. Potassium [Moles/Vol] 4.1 mmol/L 3.5-5.1 [facility] Protein [Mass/Vol] 6.9 g/dL 6.4-8.2 [facility] Sodium [Moles/Vol] 136 mmol/L 136-145 [facility] Triglyceride [Mass/Vol] 181 mg/dL <199 [facility] Comment on above: The drugs N-Acetylcy steine and Metamizole may falsely depress this assay.Serum Triglycerides Reference Interval Normal <150 mg/dL Borderline high 150 - 199 mg/dL High 200 - 499 mg/dL Very High > or = 500 mg/dL Laboratory - Chemistry and C hemistry - challengeOrdered By: Mecca Corcoran on 01-26-2023 ALP [Catalytic activity/Vol] 172 U/L 45-117 [facility] ALT [Catalytic activity/Vol] 37 U/L 13-56 [facility] CO2 [Moles/Vol] 24.0 mmol/L 21.0-32.0 [facility] Globulin (S) [Mass/Vol] 3.7 g/dL 2.2-4.2 [facility] Urea nitrogen/Creatinine [Mass ratio] 11.3 mg/mg 10-20 [facility] No Panel InformationOrdered By: Mecca Corcoran on 01-26-2023 Estimated GFR (MDRD) Amer 77 mL/min >60 [facility] Comment on above: GFR Calc Estimated GFR (MDRD) Non-Af Amer 64 mL/min >60 [facility] Comment on above: Non- GFR Calc Serum or plasma albumin joseline urement (mass/volume)Ordered By: Mecca Corcoran on 01-26-2023 Albumin [Mass/Vol] 3.2 g/dL 3.2-5.0 [facility] Serum or plasma albumin/glob ulin mass ratioOrdered By: Mecca Corcoran on 01-26-2023 Albumin/Globulin [Mass ratio] 0.9 {ratio} 0.9-2.4 [facility] Serum or plasma calcium joseline urement (mass/volume)Ordered By: Mecca Corcoran on 01-26-2023 Calcium [Mass/Vol] 8.9 mg/dL 8.5-10.1 [facility] Serum or plasma cholesterol in HDL measurement (mass/volume)Ordered By: Mecca Corcoran on 01-26-2023 Cholesterol in HDL [Mass/Vol] 43 mg/dL >40 [facility] Comment on above: The drugs N-Acetylcy steine and Metamizole may falsely depress this assay. Reference Range HDL <40 mg/dL Low HDL Cholesterol HDL >or= 60 mg/dL High HDL Cholesterol Serum or plasma cholesterol in VLDL measurement (mass/volume)Ordered By: Mecca Corcoran on 01-26-2023 Cholesterol in VLDL [Mass/Vol] 36 mg/dL 5-40 [facility] Serum or plasma creatinine m easurement (mass/volume)Ordered By: Mecca Corcoran on 01-26-2023 Creatinine [Mass/Vol] 0.97 mg/dL 0.55-1.02 [facility] Comment on above: The validity of the calculated GFR & GFRAA in patients over 70 years has not been determined. Clinical correlation is essential. Serum or plasma low density lipoprotein (LDL) cholesterol measurement (mass/volume)Ordered By: Mecca Corcoran on 01-26-2023 Cholesterol in LDL [Mass/Vol] 141 mg/dL 0-130 [facility] Serum or plasma urea nitroge n measurement (mass/volume)Ordered By: Mecca Corcoran on 01-26-2023 Urea nitrogen [Mass/Vol] 11 mg/dL 7-18 [facility] Thin prep Papanicolaou smear with manual screeningOrdered By: Mecca Corcoran on 01-26-2023 Thin prep Papanicolaou smear with manual screening 16 U/L 15-37 [facility] Thin prep Papanicolaou smear with manual screening 8 5-15 [facility] CBC AND DIFFERENTIALon 01-23 % AUTOMATED IMMATURE GRAN 0.3 % Normal 0.0 - 0.9 [facility]3] Comment on above: Result Comment: Darcy ture Granulocyte Count (IG) includes promyelocytes, myelocytes and metamyelocytes but does not include bands. Percent differential counts (%) should be interpreted in the context of the absolute cell counts (cells/L). Performed By: #### C BCDF #### [address] [address] Basophils (Bld) [#/Vol] 0.06 10*3/uL Normal 0.00 - 0.1 0 [facility]3] Comment on above: Performed By: #### C BCDF #### [address] [address] Basophils/100 WBC (Bld) 0.6 % Normal 0.0 - 2.0 [facility] Comment on above: Performed By: #### C BCDF #### [address] [address] Eosinophils (Bld) [#/Vol] 0.09 10*3/uL Normal 0.00 - 0.70 [facility]3] Comment on above: Performed By: #### C BCDF #### [address] [address] Eosinophils/100 WBC (Bld) 0.9 % Normal 0.0 - 6.0 [facility]3] Comment on above: Performed By: #### C BCDF #### [address] [address] Erythrocyte distribution width (RBC) [Ratio] 12.9 % Normal 11.5 - 14.5 [facility]3] Comment on above: Performed By: #### C BCDF #### [address] [address] Hematocrit (Bld) [Volume fraction] 47.6 % High 36.0 - 46.0 [facility]3] Comment on above: Performed By: #### C BCDF #### [address] [address] Hemoglobin (Bld) [Mass/Vol] 15.3 g/dL Normal 12.0 - 16.0 [facility]3] Comment on above: Performed By: #### C BCDF #### [address] [address] Lymphocytes (Bld) [#/Vol] 2.65 10*3/uL Normal 1.20 - 4.80 [facility]3] Comment on above: Performed By: #### C BCDF #### [address] [address] Lymphocytes/100 WBC (Bld) 26.5 % Normal 13.0 - 44.0 [facility]3] Comment on above: Performed By: #### C BCDF #### [address] [address] MCHC (RBC) [Mass/Vol] 32.1 g/dL Normal 32.0 - 36.0 [facility]3] Comment on above: Performed By: #### C BCDF #### [address] [address] MCV (RBC) [Entitic vol] 90 fL Normal 80 - 100 [facility] Comment on above: Performed By: #### C BCDF #### [address] [address] Monocytes (Bld) [#/Vol] 0.66 10*3/uL Normal 0.10 - 1.0 0 [facility]3] Comment on above: Performed By: #### C BCDF #### [address] [address] Monocytes/100 WBC (Bld) 6.6 % Normal 2.0 - 10.0 [facility] Comment on above: Performed By: #### C BCDF #### [address] [address] Neutrophils (Bld) [#/Vol] 6.50 10*3/uL Normal 1.20 - 7.70 [facility]3] Comment on above: Result Comment: Perc ent differential counts (%) should be interpreted in the context of the absolute cell counts (cells/L). Performed By: #### C BCDF #### [address] [address] Neutrophils/100 WBC (Bld) 65.1 % Normal 40.0 - 80.0 [facility]3] Comment on above: Performed By: #### C BCDF #### [address] [address] Platelets (Bld) [#/Vol] 260 10*3/uL Normal 150 - 450 [facility]3] Comment on above: Performed By: #### C BCDF #### [address] [address] RBC 5.27 x10E12/L High 4.00 - 5.20 [facility] Comment on above: Performed By: #### C BCDF #### [address] [address] WBC (Bld) [#/Vol] 10.0 10*3/uL Normal 4.4 - 11.3 [facility] Comment on above: Performed By: #### C BCDF #### [address] [address] COMPREHENSIVE PANELon 2022 Albumin [Mass/Vol] 4.1 g/dL Normal 3.4 - 5.0 [facility] Comment on above: Performed By: #### C MP #### [address] [address] ALP [Catalytic activity/Vol] 147 U/L High 33 - 110 [facility]3] Comment on above: Performed By: #### C MP #### [address] [address] ALT [Catalytic activity/Vol] 25 U/L Normal 7 - 45 [facility]3] Comment on above: Result Comment: Shena ents treated with Sulfasalazine may generate falsely decreased results for ALT. Performed By: #### C MP #### [address] [address] Anion gap [Moles/Vol] 12 mmol/L Normal 10 - 20 [facility]3] Comment on above: Performed By: #### C MP #### [address] [address] AST [Catalytic activity/Vol] 17 U/L Normal 9 - 39 [facility]3] Comment on above: Performed By: #### C MP #### [address] [address] Bilirubin [Mass/Vol] 0.6 mg/dL Normal 0.0 - 1.2 [facility] Comment on above: Performed By: #### C MP #### [address] [address] Calcium [Mass/Vol] 9.7 mg/dL Normal 8.6 - 10.3 [facility] Comment on above: Performed By: #### C MP #### [address] [address] Chloride [Moles/Vol] 100 mmol/L Normal 98 - 107 [facility] Comment on above: Performed By: #### C MP #### [address] [address] Creatinine [Mass/Vol] 0.76 mg/dL Normal 0.50 - 1.05 [facility]3] Comment on above: Performed By: #### C MP #### [address] [address] eGFR FEMALE >90 Normal >90 [facility]3] Comment on above: Result Comment: CALC ULATIONS OF ESTIMATED GFR ARE PERFORMED USING THE 2020 CKD-EPI STUDY REFIT EQUATION WITHOUT THE RACE VARIABLE FOR THE IDMS-TRACEABLE CREATININE METHODS. https://jasn.asnjournals.org/content//ASN.309 8234001 Performed By: #### C MP #### [address] [address] Glucose [Mass/Vol] 214 mg/dL High 74 - 99 [facility] Comment on above: Performed By: #### C MP #### [address] [address] HCO3 (Bld) [Moles/Vol] 28 mmol/L Normal 21 - 32 [facility]3] Comment on above: Performed By: #### C MP #### [address] [address] Potassium [Moles/Vol] 3.8 mmol/L Normal 3.5 - 5.3 [facility]3] Comment on above: Performed By: #### C MP #### [address] [address] Protein [Mass/Vol] 7.0 g/dL Normal 6.4 - 8.2 [facility] Comment on above: Performed By: #### C MP #### [address] [address] Sodium [Moles/Vol] 136 mmol/L Normal 136 - 145 [facility] Comment on above: Performed By: #### C MP #### [address] [address] Urea nitrogen [Mass/Vol] 12 mg/dL Normal 6 - 23 [facility]3] Comment on above: Performed By: #### C MP #### [address] [address] D-DIMER, NON VTEon 3 D-DIMER, NON VTE 254 ng/mL FEU Normal = 500 [facility] Comment on above: Result Comment: THE D-DIMER ASSAY IS REPORTED IN NG/ML FIBRINOGEN EQUIVALENT UNITS (FEU). THE RESULTS OF THIS ASSAY SHOULD NOT BE USED FOR THE EXCLUSION OF DEEP VEIN THROMBOSIS AND/OR PULMONARY EMBOLISM. Performed By: #### D MIKE ####[address] [address] Phone Note - Heme Onc-appoin tment questionon 12-31-2022 Phone Note - Heme Onc-appointment question Phone Call Information: Patient Demographics: Name: IBIS ACOSTA Date: 1970 Address: [facility] [address] [place] [address] Date and Time: 31-Dec-2022 Primary Phone Number: [phone] Reason for Call: Reason for Callappointment question Team Communication: Disposition: appointment scheduled Team Communications: pt unable to see our MD or [facility] - because of being [facility]. pt will get labs the week of 01/19. set up for a phone visit with Dr Lopez at his [facility] office 01/29 at 1200noon. call perez be on pts lunch hour as she has a work schedule that doesn't allow phone calls. Nikkie Ying 12/31/2022 11:20 Outpatient Medication Profile: * Patient Currently Takes Medications as of 16-Jun-2022 11:44 documented in Structured Notes Xarelto 20 mg oral tablet: 1 tab(s) orally once a day , Start Date: 16-Jun-2022 NexIUM 24HR: orally once a day metFORMIN 1000 mg oral tablet, extended release: 1 tab(s) orally once a day Allergies: Keflex: Unknown Lab Results: Results CBC date/time WBC HGB HCT PLT Neut 09-Jun-2022 09:15 8.1 15.7 47.5(H) 238 4.72 BMP date/time NA K CL CO2 BUN CREAT 09-Jun-2022 09:15 139 4.2 103 N/A 9 0.74 Electronic Signatures: Nikkie Ying (RN) (Signed 31-Dec-2022 11:20) Authored: Phone Call Information, Outpatient Medication Profile, Allergies, Results Last Updated: 31-Dec-2022 11:20 by Nikkie Ying (SUZI) [facility] Clinic Note - Heme Onc-Follo w Up Visiton 12-30-2022 Clinic Note - Heme Onc-Follow Up Visit This report has been cancelled. [facility] Note - Heme Onc-Follo w Up Visiton 06-16-2022 Clinic Note - Heme Onc-Follow Up Visit Patient Visit Information: Visit Type: Follow Up Visit History of Present Illness: ID Statement: IBIS ACOSTA is a 52 year old Female Chief Complaint: deep vein thrombosis Interval History: Ibis Acosta is a 50 yo who presents with history of deep vein thrombosis. Prior work injury resulted in: Doppler ultrasound of the left lower extremity showed on 09/14/17: Totally occluding acute deep vein thrombosis of the left femoral, popliteal, posterior tibial and peroneal veins with severe reduction of the venous return. Totally occluding acute calf vein thrombosis of the left gastrocnemius veins with severe reduction of the venous return. No evidence of thrombosis of the left profunda femoral vein. No evidence of thrombosis of the left common femoral vein with mild reduction of the venous return. Anticoagulation with xarelto was started. Follow-up doppler ultrasound on 12/28/17 showed: Total resolution of the left lower extremity deep vein thrombosis found on 09/14/17. Chronic deep vein thrombosis of the left common femoral vein still noted. A point mutation in the factor II gene is not identified. Factor V Leiden mutation is not identified. There is overall improvement of function of left leg. Swelling and pain of the left lower leg continues. 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 and at the end of the day the leg is more swollen and tender it improves the next morning she has pain on walking too in the lower part no nausea or vomiting she is tolerating xarelto otherwise well going through menopause symptoms no hematochezia or melena no recurrence of kidney stones and no new hematuria does not use compression socks , said they do not work for this no SOB or chest pain no fever or cough no known fhx of blood clots non smoker Rest of past medical , surgical and family history as previously stated Review of Systems: Review of Systems: 10 points review of systems conducted except as in HPI Allergies and Intolerances: Allergies: Keflex: Drug, Unknown, Active Outpatient Medication Profile: * Patient Currently Takes Medications as of 16-Jun-2022 11:32 documented in Structured Notes Xarelto 20 mg oral tablet: Last Dose Taken: , 1 tab(s) orally once a day , Start Date: 18-Dec-2021 NexIUM 24HR: Last Dose Taken: , orally once a day metFORMIN 1000 mg oral tablet, extended release: Last Dose Taken: , 1 tab(s) orally once a day Medical History: Erythrocytosis: ICD-10: D75.1, Status: Active Crush injury of leg: ICD-10: S87.80XA, Status: Active Diabetes mellitus: ICD-10: E11.9, Status: Active Acid reflux: ICD-10: K21.9, Status: Active Anxiety: ICD-10: F41.9, Status: Active Deep vein thrombosis (DVT): ICD-10: I82.409, Status: Active Surg History: History of prior ablation treatment: ICD-10: Z98.890, Status: Active History of tooth extraction: ICD-10: K08.409, Status: Active S/P cholecystectomy: ICD-10: Z90.49, Status: Active Social History: Social Substance History: Smoking Statusnever smoker Tobacco Usedenies Alcohol Useoccasionally Vitals and Measurements: Vitals: Temp: 35.4 HR: 70 RR: 16 BP: 165/98 SPO2%: 94 Measurements: HT(cm): 180.5 WT(kg): 121.7 BSA: 2.47 BMI: 37.3 Last 3 Weights & Heights: Date: Weight/Scale Type:Height: 16-Jun-2022 11:99857.7 kg 180.5 cm 09-Oct-2021 13:11639.5 kg 180.5 cm Physical Exam: Constitutional: Well developed, awake/alert/oriented x3, no distress, alert and cooperative Eyes: PERRL, EOMI, clear sclera, no conjunctival pallor ENMT: mucous membranes moist, no lesions seen Head/Neck: Neck supple, thyroid without mass or tenderness, trachea midline, no cervical or supraclavicular lymphadenopathy Respiratory/Thorax: CTAB, normal breath sounds with good chest expansion, no crackles or wheezes Cardiovascular: Regular, rate and rhythm, no murmurs, normal S 1and S 2 Gastrointestinal: Nondistended, soft, non-tender, no rebound tenderness or guarding, no masses palpable, no organomegaly Musculoskeletal: ROM intact, no joint swelling, normal strength, no focal tenderness Extremities: left leg swelling in calf > right with some stasis changes, mild tenderness, no major changes Neurological: alert and oriented x3, no focal deficits Lymphatic: No axillary, cervical, supraclavicular or inguinal lymphadenopathy Psychological: Appropriate mood and behavior Skin: Warm and dry, no lesions, no rashes Lab Results: Results CBC date/time WBC HGB HCT PLT Neut 09-Jun-2022 09:15 8.1 15.7 47.5(H) 238 4.72 BMP date/time NA K CL CO2 BUN CREAT 09-Jun-2022 09:15 139 4.2 103 N/A 9 0.74 I have reviewed these laboratory results: Comprehensive Metabolic Panel 09-Jun-2022 09:15:00 ResultValue Glucose, Serum 360 H NA 139 K 4.2 CL 103 Bicarbonate, (more content not included)... [facility] Clinic Note - Intakeon 06-16 Clinic Note - Intake Patient Visit Information: Visit TypeFollow Up Visit, DVT Source of Informationpatient Accompanied byfamily Admission Information: Admission Since Last VisitNo Vital Signs: Temp (degrees C)35.4 degrees C Temperatureskin Heart Rate (beats/min)70 beats per minute Respiration (breaths/min)16 breath per minute BP Systolic (mm Hg)Image has been removed. 165 mmHg BP Diastolic (mm Hg)Image has been removed. 98 mmHg BP Mean (mm Hg)Image has been removed. 120 mmHg Height in cm180.5 centimeter(s) Weight in kg121.7 kilogram(s) Weightstanding BMI (kg/m2)37.3 kg/M2 BSA (m2)2.47 M2 SpO2 (%)94 % SpO2 Patient Onroom air Pain Screening: Patient States Painyes Current Pain Score (0-10)3 Pain Description/Locationl eft leg Pain Scale UsedNumeric (0-10) Allergies: Keflex: Drug, Unknown, Active Outpatient Medication Profile: * Patient Currently Takes Medications as of 16-Jun-2022 11:32 documented in Structured Notes Xarelto 20 mg oral tablet: Last Dose Taken: , 1 tab(s) orally once a day , Start Date: 18-Dec-2021 NexIUM 24HR: Last Dose Taken: , orally once a day metFORMIN 1000 mg oral tablet, extended release: Last Dose Taken: , 1 tab(s) orally once a day Notification: NotificationsAll annual screens currently due. Travel History: COVID-19 Screening Completedno exposure or symptoms Travel or ExposureNO travel to International locations in the past 30 days Falls: Have you fallen in the last 6 monthsno Do you have a fear of fallingno Do you feel you need assistanceno Is the patient using an assistive deviceno Not a falls riskimplement environmental risk factors interventions Electronic Signatures: Edith Moctezuma II) (Signed 16-Jun-2022 11:32) Authored: Patient Visit Information, Vital Signs, Allergies, Outpatient Medication Profile, Notification, Travel History, Falls Last Updated: 16-Jun-2022 11:32 by Edith Moctezuma II) [facility] ERYTHROPOIETINon 01-12-2023 ERYTHROPOIETIN 25.1 mIU/mL High 2.6-18.5 [facility] Comment on above: Result Comment: [employer] Uni[employer]el DxI 800 Immunoassay System Values obtained with different assay methods or kits cannot be used interchangeably. Results cannot be interpreted as absolute evidence of the presence or absence of malignant disease. Performed By: #### E RYPO #### [facility] [address] [place], [place] [id number] NGS MPNon 06-10-2022 NGS MPN Received Normal [facility]3] Comment on above: Result Comment: Resu lts will be available in the Pathology section when testing is complete. Please direct questions to the Translational Laboratory (TL) at . Performed By: #### N GS #### [facility] [id number] [place] [address] CBC AND DIFFERENTIALon 06-09 % AUTOMATED IMMATURE GRAN 0.4 % Normal 0.0 - 0.9 [facility]3] Comment on above: Result Comment: Darcy ture Granulocyte Count (IG) includes promyelocytes, myelocytes and metamyelocytes but does not include bands. Percent differential counts (%) should be interpreted in the context of the absolute cell counts (cells/L). Performed By: #### C BCDF #### [address] [address] Basophils (Bld) [#/Vol] 0.07 10*3/uL Normal 0.00 - 0.1 0 [facility]3] Comment on above: Performed By: #### C BCDF #### [address] [address] Basophils/100 WBC (Bld) 0.9 % Normal 0.0 - 2.0 [facility] Comment on above: Performed By: #### C BCDF #### [address] [address] Eosinophils (Bld) [#/Vol] 0.14 10*3/uL Normal 0.00 - 0.70 [facility]3] Comment on above: Performed By: #### C BCDF #### [address] [address] Eosinophils/100 WBC (Bld) 1.7 % Normal 0.0 - 6.0 [facility]3] Comment on above: Performed By: #### C BCDF #### [address] [address] Erythrocyte distribution width (RBC) [Ratio] 12.7 % Normal 11.5 - 14.5 [facility]3] Comment on above: Performed By: #### C BCDF #### [address] [address] Hematocrit (Bld) [Volume fraction] 47.5 % High 36.0 - 46.0 [facility]3] Comment on above: Performed By: #### C BCDF #### [address] [address] Hemoglobin (Bld) [Mass/Vol] 15.7 g/dL Normal 12.0 - 16.0 [facility]3] Comment on above: Performed By: #### C BCDF #### [address] [address] Lymphocytes (Bld) [#/Vol] 2.55 10*3/uL Normal 1.20 - 4.80 [facility]3] Comment on above: Performed By: #### C BCDF #### [address] [address] Lymphocytes/100 WBC (Bld) 31.7 % Normal 13.0 - 44.0 [facility]3] Comment on above: Performed By: #### C BCDF #### [address] [address] MCHC (RBC) [Mass/Vol] 33.1 g/dL Normal 32.0 - 36.0 [facility]3] Comment on above: Performed By: #### C BCDF #### [address] [address] MCV (RBC) [Entitic vol] 88 fL Normal 80 - 100 [facility] Comment on above: Performed By: #### C BCDF #### [address] [address] Monocytes (Bld) [#/Vol] 0.54 10*3/uL Normal 0.10 - 1.0 0 [facility]3] Comment on above: Performed By: #### C BCDF #### [address] [address] Monocytes/100 WBC (Bld) 6.7 % Normal 2.0 - 10.0 [facility] Comment on above: Performed By: #### C BCDF #### [address] [address] Neutrophils (Bld) [#/Vol] 4.72 10*3/uL Normal 1.20 - 7.70 [facility]3] Comment on above: Result Comment: Perc ent differential counts (%) should be interpreted in the context of the absolute cell counts (cells/L). Performed By: #### C BCDF #### [address] [address] Neutrophils/100 WBC (Bld) 58.6 % Normal 40.0 - 80.0 [facility]3] Comment on above: Performed By: #### C BCDF #### [address] [address] Platelets (Bld) [#/Vol] 238 10*3/uL Normal 150 - 450 [facility]3] Comment on above: Performed By: #### C BCDF #### [address] [address] RBC 5.41 x10E12/L High 4.00 - 5.20 [facility] Comment on above: Performed By: #### C BCDF #### [address] [address] WBC (Bld) [#/Vol] 8.1 10*3/uL Normal 4.4 - 11.3 [facility] Comment on above: Performed By: #### C BCDF #### [address] [address] COMPREHENSIVE PANELon 2022 Albumin [Mass/Vol] 4.1 g/dL Normal 3.4 - 5.0 [facility] Comment on above: Performed By: #### C MP #### [address] [address] ALP [Catalytic activity/Vol] 202 U/L High 33 - 110 [facility]3] Comment on above: Performed By: #### C MP #### [address] [address] ALT [Catalytic activity/Vol] 31 U/L Normal 7 - 45 [facility]3] Comment on above: Result Comment: Shena ents treated with Sulfasalazine may generate falsely decreased results for ALT. Performed By: #### C MP #### [address] [address] Anion gap [Moles/Vol] 14 mmol/L Normal 10 - 20 [facility]3] Comment on above: Performed By: #### C MP #### [address] [address] AST [Catalytic activity/Vol] 18 U/L Normal 9 - 39 [facility]3] Comment on above: Performed By: #### C MP #### [address] [address] Bilirubin [Mass/Vol] 0.5 mg/dL Normal 0.0 - 1.2 [facility] Comment on above: Performed By: #### C MP #### [address] [address] Calcium [Mass/Vol] 9.4 mg/dL Normal 8.6 - 10.3 [facility] Comment on above: Performed By: #### C MP #### [address] [address] Chloride [Moles/Vol] 103 mmol/L Normal 98 - 107 [facility] Comment on above: Performed By: #### C MP #### [address] [address] Creatinine [Mass/Vol] 0.74 mg/dL Normal 0.50 - 1.05 [facility]3] Comment on above: Performed By: #### C MP #### [address] [address] eGFR FEMALE >90 Normal >90 [facility]3] Comment on above: Result Comment: CALC ULATIONS OF ESTIMATED GFR ARE PERFORMED USING THE 2020 CKD-EPI STUDY REFIT EQUATION WITHOUT THE RACE VARIABLE FOR THE IDMS-TRACEABLE CREATININE METHODS. https://jasn.asnjournals.org/content/early//ASN.820 6781583 Performed By: #### C MP #### [address] [address] Glucose [Mass/Vol] 360 mg/dL High 74 - 99 [facility] Comment on above: Performed By: #### C MP #### [address] [address] HCO3 (Bld) [Moles/Vol] 26 mmol/L Normal 21 - 32 [facility]3] Comment on above: Performed By: #### C MP #### [address] [address] Potassium [Moles/Vol] 4.2 mmol/L Normal 3.5 - 5.3 [facility]3] Comment on above: Performed By: #### C MP #### [address] [address] Protein [Mass/Vol] 7.0 g/dL Normal 6.4 - 8.2 [facility] Comment on above: Performed By: #### C MP #### [address] [address] Sodium [Moles/Vol] 139 mmol/L Normal 136 - 145 [facility] Comment on above: Performed By: #### C MP #### [address] [address] Urea nitrogen [Mass/Vol] 9 mg/dL Normal 6 - 23 [facility]3] Comment on above: Performed By: #### C MP #### [address] [address] D-DIMER, NON VTEon 3 D-DIMER, NON VTE 221 ng/mL FEU Normal = 500 [facility] Comment on above: Result Comment: THE D-DIMER ASSAY IS REPORTED IN NG/ML FIBRINOGEN EQUIVALENT UNITS (FEU). THE RESULTS OF THIS ASSAY SHOULD NOT BE USED FOR THE EXCLUSION OF DEEP VEIN THROMBOSIS AND/OR PULMONARY EMBOLISM. Performed By: #### D [facility] #### [address] Surgical Pathology Depar ruthynton 06-09-2022 [facility] Surgical Pathology Department Name IBIS ACOSTA Pathologist: MATA JIN M.D, PH.D. Date of Procedure: 06/09/2022 Date Received: 06/10/2022 Date Reported 06/13/2022 Submitting Physician: NAEEM LOPEZ M.D. Location: [facility] FINAL DIAGNOSIS RESULTS OF ANCILLARY TESTING ORDERED BY PATIENT'S PHYSICIAN/PATHOLOGIST ON OUTSIDE/ARCHIVED MATERIAL WILL BE RESULTED AN ADDENDUM. NO DIAGNOSIS IS RENDERED ON THIS CASE Electronically Signed Out By MATA JIN M.D, PH.D./SSO By the signature on this report, the individual or group listed as making the Final Interpretation/Diagno sis certifies that they have reviewed this case. Addendum/Procedures: Special Oncology Report Date Ordered: 06/13/2022 Status: Signed Out Date Complete: 06/13/2022 Date Reported: 06/13/2022 Addendum Diagnosis TEST: Myeloid NGS Panel SPECIMEN: Peripheral Blood [id number] COLLECTION DATE: 06/09/2022 RECEIVED DATE: 06/10/2022 REPORT DATE: 06/13/2022 [facility] ASSOCIATED GENOMIC FINDINGS: Not Detected. INTERPRETATION: No variants are detected in the listed gene regions. This finding does not exclude the presence of genetic alterations present in gene regions not tested or occurring at a frequency below the limit of detection. DISEASE RELEVANT ALTERATIONS NOT DETECTED: Negative for JAK2 V617F. Negative for JAK2 exon 12 mutation. Negative for CALR mutation. Negative for MPL mutation. DISCLAIMER: This assay is designed to detect targeted clinically-relevant single nucleotide variants and insertions and deletions (<30bp) in a select group of genes. This assay has also been designed to detect specific larger insertions and deletions: FLT3 internal tandem duplication (ITD) and CALR Type I mutations. This assay does not distinguish between somatic and germline alterations in analyzed regions. A negative result (mutation not identified) does not rule out the presence of a mutation below the limit of detection of this assay due to low neoplastic cell content, tumor heterogeneity, or the presence of additional mutations in the listed genes which are outside of the target regions in this assay. General population polymorphisms, promoter, synonymous and intronic variants (with the exception of splice variants) are not generally included in this report. Identification or absence of cancer-associated mutations does not necessarily indicate a response to therapy. Decisions on patient care and treatment must be based on the independent medical judgment of the treating physician, taking into account all applicable information concerning the patient's condition such as clinical and histopathologic findings, other laboratory findings, and patient preferences. This report includes information from public sources, including scientific and medical literature to better characterize the significance of alterations detected. Nucleic acid extraction and testing are performed in the [facility] ([facility]) located at [address] [place] [address] (CLIA License #[id number], CAP #[id number]). This laboratory developed test was developed and its analytical performance characteristics have been determined by [facility]. This test has not been cleared or approved by the FDA; however, the FDA has determined that such approval is not necessary. The [facility] is certified under the Clinical Laboratory Improvement Amendments of 1988 (CLIA-88) as qualified to perform high complexity testing. PANEL GENE LIST: ASXL1(11-12), BRAF(15), CALR(9), CBL(7-9), CSF3R(14,17), DNMT3A(8-12,18-19,22- 23), ETV6(2-8), EZH2(15-19), FLT3(14-16,20), GATA2(4-6), IDH1(4), IDH2(4), JAK2(12,14), JAK3(4,13,16), KIT(17), KRAS(2-4), MPL(4,10), MYD88(5), NPM1(11), NRAS(2-3), PHF6(2-10), PTPN11(3,13), RUNX1(4-9), SETBP1(4), SF3B1(14-16), SRSF2(1), TET2(3-11), TP53(2-11), U2AF1(2,6), WT1(7,9), ZRSR2(1-10). Not all exons are sequenced in their entirety. Exons covered are shown in parenthesis. Genome assembly (hg19) was used for alignment and variant calling. Electronically Signed Out By MATA JIN M.D, PH.D./SSO By the signature on this report, the individual or group listed as making the Final Interpretation/Diagno sis certifies that they have reviewed this case. Clinical History: {Not Provided} Specimens Submitted As: A: PERIPHERAL BLOOD Gross Description: {Not Entered} Normal [facility]3] Comment on above: Performed By: #### U [facility] ####[facility] Surgical Pathology [id number] [place] [address] CALCULI, URINARYon 1 CA OXALATE MONOHYDR 100 [facility] Comment on above: Result Comment: Unit : % Color (U) Brown [facility] COMMENT: Comment [facility] Comment on above: Result Comment: (NOT E) Physician questions regarding Calculi Analysis contact [facility] at: [phone]. COMPOSITION Comment [facility] Comment on above: Result Comment: Perc entage (Represents the % composition) DISCLAIMER: Comment [facility] Comment on above: Result Comment: (NOT E) This test was developed and its performance characteristics determined by [email or web address]. It has not been cleared or approved by the Food and Drug Administration. PHOTO Comment [facility] Comment on above: Result Comment: Phot ograph will follow under a separate cover PLEASE NOTE: Comment [facility] Comment on above: Result Comment: (NOT E) Calculi report will follow via computer, mail or lining brusher delivery. SIZE 3x4 [facility] Comment on above: Result Comment: Unit : mm (NOTE) Multiple pieces received. Dimensions of the largest piece reported. SOURCE Comment [facility] Comment on above: Result Comment: Left Kidney WEIGHT 88.0 [facility] Comment on above: Result Comment: Unit : mg NOVEL CORONAVIRUSon 02-12-20 21 NARRATIVE This test was performed using isothermal EDINSON and has been approved as Emergency Use Authorization (EUA) for the qualitative detection ioLMXY-NsR-2 nucleic acid. [facility] Comment on above: Performed By: #### C OVID #### Testing performed at [address] [address] SARS-CoV-2 (COVID-19) RNA EDINSON+probe Ql (Unsp spec) Not detected Normal NOT DETECTED [facility] Comment on above: Result Comment: Nega tive results do not preclude SARS-CoV-2 infection and should not be used as the sole basis for treatment or other patient management decisions. Optimum specimen types and timing for peak viral levels during infections caused by SARS-CoV-2 has not been determined. The possibility of a false negative result should especially be considered if the patient's recent exposures or clinical presentation suggest that SARS-CoV-2 infection is probable, and diagnostic tests for other causes of illness (e.g., other respiratory illness) are negative. Collection of a new specimen and re-testing may be necessary if the patient is critically ill or clinically deteriorating. Performed By: #### C OVID #### Testing performed at [address] [address] [address] ABDOMEN/PELVIS WITHOUT CO NTRASTon 02-07-2021 CT ABDOMEN/PELVIS WITHOUT CONTRAST EXAMINATION: CT ABDOMEN/PELVIS WITHOUT CONTRAST, 02/07/2021 8:15 AM EDT HISTORY: Left-sided abdominal pain, possible ureteral calculus. COMPARISON: CT abdomen pelvis 09/11/2017, [place]. TECHNIQUE: CT scan of the abdomen and pelvis was performed without IV contrast. CT dose reduction technique was used, including Automated Exposure Control. FINDINGS: PERTINENT POSITIVES: 8 mm stone approximately 8 cm proximal to the left ureterovesical junction. This stone was in the left kidney on 09/11/2017. PERTINENT NEGATIVES: No hydronephrosis. Normal appendix. COINCIDENTAL FINDINGS: 2 mm nonobstructing stone inferior left kidney. Moderate degenerative change L5-S1. Cholecystectomy. ROUTINE EXAMINATION: Normal uterus. Bladder contour normal. Normal retroperitoneum. Normal pancreas, spleen and liver. Abdominal wall intact. Lung bases clear. IMPRESSION: 8 mm left ureteral stone 8 cm proximal to the left ureterovesical junction. Normal [facility] XR ABDOMEN 1 VIEWon 02-07-20 XR ABDOMEN 1 VIEW EXAM: XR ABDOMEN 1 VIEW HISTORY: kidney stone COMPARISON: CT of the abdomen on 09/11/2017. TECHNIQUE: Two AP supine views of the abdomen and pelvis were performed. FINDINGS: There is a 6 mm calcification slightly inferior and medial to the left SI joint. This is most likely a distal ureteral calcification. No other evidence of abnormal calcifications are seen. Organ outlines are satisfactory. Abdominal gas pattern is unremarkable. IMPRESSION: The images are suggestive of a 6 mm left ureteral calculus in the distal left ureter several centimeters below the sacroiliac joint. Normal [facility] ALAN MULTIPLEX SCRN WITH REFL EXon 10-04-2020 ALAN Screen, Multiplex Negative Normal Negative [facility] Comment on above: Result Comment: This test includes the following antibodies: Centromere, Chromatin, DsDNA, Jo1, Ribosomal P, DIRECTOR OF INSTITUTIONAL SALES, ScL70, Sm/DIRECTOR OF INSTITUTIONAL SALES, Piper, SSA and SSB. A negative screen result means each antibody listed is negative. If positive, the individual antibody results will be reflexed. Performed By: #### L [id number], [id number] #### U [facility] (DEFAULT) [address] [address] ANTI PHOSPHOLIPID ANTIBODYon 10-04-2020 Anti-Cardiolipin Antibody, IgG <10.0 Normal 0.0-20.0 [facility] [place] [facility] Comment on above: Performed By: #### B 2GP1, PLAB #### [facility] (DEFAULT) [address] [address] Anti-Cardiolipin Antibody, IgM <10.0 Normal 0.0-20.0 [facility] Comment on above: Performed By: #### B 2GP1, PLAB #### [facility] (DEFAULT) [address] [address] BETA 2 GLYCOPROTEIN 1 AB, IG G, IGM, DOMAIN 1on 10-04-2020 Beta 2 Glycoprotein 1 Antibody, IgG <10.0 Normal 0.0-20.0 [facility] Comment on above: Performed By: #### B 2GP1, PLAB #### [facility] (DEFAULT) [address] [address] Beta 2 Glycoprotein 1 Antibody, IgM <10.0 Normal 0.0-20.0 [facility] Comment on above: Performed By: #### B 2GP1, PLAB #### [facility] (DEFAULT) [address] [place] [address] Beta 2 Glycoprotein 1 Domain 1 <10.0 Normal 0.0-19.9 [facility] Comment on above: Performed By: #### B 2GP1, PLAB #### [facility] (DEFAULT) [address] [place] [address]328 C REACTIVE PROTEINon CRP [Mass/Vol] 15.45 mg/L High <10.00 [facility] Comment on above: Performed By: #### C KB, RF, CRP #### [facility] (DEFAULT) [address] [place] [address]69 CKon 10-04-2020 CK [Catalytic activity/Vol] 48 U/L Normal 30-184 [facility] Comment on above: Performed By: #### C KB, RF, CRP #### [facility] (DEFAULT) [address] [place] [address] CYCLIC CITRULLINATE PEPTIDE ABon 10-04-2020 Cyclic Citrullinated Peptide Ab <0.5 Normal <5.0 [facility] Comment on above: Performed By: #### Y CCP #### [facility] (DEFAULT) [address] [address] LAW-PATHon 10-04-2020 Interpretation By: Eliecer Austin MD Normal [facility] Comment on above: Performed By: #### L [id number], [id number] #### [facility] (DEFAULT) [address] [address] Lupus Anticoagulant Interpretation Coagulation assays for the presence of a Lupus Anticoagulant (LA) are NEGATIVE at this time. Normal [facility] Comment on above: Performed By: #### L [id number], [id number] #### [facility] (DEFAULT) [address] [place] [address] LAWUP-ROUTon 10-04-2020 INR Coag (PPP) [Relative time] 1.0 {INR} Normal 0.9-1.1 [facility] Comment on above: Performed By: #### L [id number] #### [facility] (DEFAULT) [address] [place] [address] PT Coag (PPP) [Time] 13.2 s Normal 11.9-14.2 [facility] Comment on above: Performed By: #### L [id number] #### [facility] (DEFAULT) [address] [place] [address] Thrombin Time 17.1 sec Normal 13.0-20.0 [facility] Comment on above: Performed By: #### L [id number] #### [facility] (DEFAULT) [address] [place] [address]151 TT Mixing Study With Protamine Sulfate Not Indicated Normal [facility] Comment on above: Performed By: #### L [id number] #### [facility] (DEFAULT) [address] [place] [address] LAWUP-SPECon 10-04-2020 dRVVT Confirm Ratio Not Indicated Normal [facility] Comment on above: Performed By: #### L [id number], [id number] #### [facility] (DEFAULT) [address] [place] [address] dRVVT Normalized Ratio Not Indicated Normal [facility] Comment on above: Performed By: #### L [id number], [id number] #### [facility] (DEFAULT) [address] [place] [address] dRVVT Screen Ratio 1.19 Normal <=1.31 [facility] Comment on above: Performed By: #### L [id number], [id number] #### [facility] (DEFAULT) [address] [place] [address] Neutralization Not Indicated Normal [facility] Comment on above: Performed By: #### L [id number], [id number] #### [facility] (DEFAULT) [address] [place] [address] PTT-Lupus Sensitive 38.7 sec Normal <=43.4 [facility] Comment on above: Performed By: #### L [id number], [id number] #### [facility] (DEFAULT) [address] [place] [address] PTT-Lupus Sensitive Mix With Normal Plasma Not Indicated Normal [facility] Comment on above: Performed By: #### L [id number], [id number] #### [facility] (DEFAULT) [address] [place] [address] RHEUMATOID FACTORon 10-05-19 21 Rheumatoid Factor <10 Normal <=14 [facility] Comment on above: Performed By: #### C KB, RF, CRP #### [facility] (DEFAULT) [address] [place] [address] SEDIMENTATION RATE, AUTOMATE Don 10-04-2020 ESR Westergren 31 mm/hr High <30 [facility] Comment on above: Performed By: #### E SR #### [facility] (DEFAULT) [address] [place] [address]49 XR Tib/Fib Right 2 Viewon XR Tib/Fib Right 2 View Exam Date/Time: 01/14/2019 15:33 EDT Reason for Exam: S80.12XA Report STUDY: XR Tib/Fib Right 2 View;; 01/14/2019 3:33 pm INDICATION: S80.12XA. COMPARISON: 09/09/2017. ACCESSION NUMBER(S): [id number] ORDERING CLINICIAN: Michelle Ponce FINDINGS: The tibia and fibula are intact. No fracture is seen. No radiopaque foreign body is seen in the soft tissue. IMPRESSION: Normal examination. FINAL REPORT Dictated: 01/14/2019 3:42 pm Will Ceedño MD Signed (Electronic Signature): 01/14/2019 3:42 pm Signed by: Will Cedeño MD Technologist: GUNNAR [facility] Vital Signs Date Time Vital Sign Value Performing Clinician Jed maher 05-11-2024 09:11-0500 Body weight 111.58 kg Kieran Khan MD Work Phone: [facility] 05-11-2024 09:11-0500 Diastolic blood pressure 82 mm[Hg] Kieran Khan MD Work Phone: [facility] 05-11-2024 09:11-0500 Systolic blood pressure 126 mm[Hg] Kieran Khan MD Work Phone: [facility] 04-18-2024 09:33-0500 Body weight 112.04 kg Kieran Khan MD Work Phone: [facility] 04-18-2024 09:33-0500 Diastolic blood pressure 76 mm[Hg] Kieran Khan MD Work Phone: [facility] 04-18-2024 09:33-0500 Systolic blood pressure 126 mm[Hg] Kieran Khan MD Work Phone: [facility] 07-07-2023 15:46-0500 Body mass index (BMI) [Ratio] 32.72 kg/m2 Naeem Lopez MD Work Phone: [facility] 07-07-2023 15:46-0500 Body weight 106.59 kg Naeem Lopez MD Work Phone: [facility] 10-14-2018 08:07-0400 BP Diastolic 92 mm[Hg] [facility] 10-14-2018 08:07-0400 BP Systolic 145 mm[Hg] [facility] 10-14-2018 08:05-0400 BMI (Body Mass Index) 39.61 kg/m2 [facility] 10-14-2018 08:05-0400 Body weight 128.82 kg [facility] 10-14-2018 08:05-0400 Height 180.3 cm [facility] 10-14-2018 08:05-0400 Pulse (Heart Rate) 60 /min [facility] Encounters Encounter Date Encounter Type Care Provider Facility Start: 11-01-2024 End: 11-01-2024 ambulatory Beata Atkins MD Work Phone: [facility] Work Phone: Start: 11-01-2024 End: 11-01-[address] Beata Atkins MD -Laboratory [facility] Start: 11-01-2024 End: 11-01-2024 ambulatory Beata Atkins Facility:[facility] Start: 07-04-2024 End: 07-08-2024 Telephone encounter Kieran Khan MD Work Phone: OB/Gynecology Comment on above: Appointment Start: 05-11-2024 End: 05-11-2024 ambulatory KIERAN KHAN Facility:[facility] Start: 05-11-2024 End: 05-11-2024 Patient encounter procedure Kieran Khan MD Work Phone: OB/Gynecology Comment on above: PMB (postmenopausal bleeding) (Primary Dx) Start: 04-27-2024 End: 04-29-2024 Telephone encounter Kieran Khan MD Work Phone: OB/Gynecology Comment on above: Results Start: 04-26-2024 End: 04-26-2024 ambulatory [employer] Work Phone: OB/Gynecology Start: 04-26-2024 End: 04-26-2024 Patient encounter procedure [employer] Work Phone: OB/Gynecology Start: 04-20-2024 End: 04-20-2024 Telephone encounter Sandra Allen MD Work Phone: Mammography Comment on above: Mammogram Result Levy l Back Start: 04-18-2024 End: 04-18-2024 ambulatory KIERAN KHAN Facility:[facility] Start: 04-18-2024 End: 04-18-2024 Subsequent hospital visit by physician Screen Mammo [facility] Comment on above: Encounter for screen ing mammogram for malignant neoplasm of breast [Z12.31] Start: 04-18-2024 End: 04-18-2024 ambulatory KIERAN KHAN Facility:[facility] Start: 04-18-2024 End: 04-18-2024 Patient encounter procedure Kieran Khan MD Work Phone: OB/Gynecology Comment on above: Encounter for screen ing for malignant neoplasm of cervix (Primary Dx); Special screening examination for human papillomavirus (HPV); PMB (postmenopausal bleeding); Encounter for screening mammogram for malignant neoplasm of breast Start: 07-07-2023 End: 07-08-2023 ambulatory [facility] Start: 07-07-2023 End: 07-07-2023 Office outpatient visit 15 minutes Naeem Lopez MD Work Phone: [facility] Comment on above: Deep vein thrombosis (DVT) of other vein of lower extremity, unspecified chronicity, unspecified laterality (CMS/HCC) (Primary Dx) Start: 07-03-2023 End: 07-04-2023 ambulatory [facility] Start: 01-29-[address] Naeem Lopez Facil ity:[id number] Start: 01-26-2023 End: 01-26-2023 ambulatory [facility] Work Phone: Start: 01-26-2023 End: 01-26-2023 Patient encounter procedure [facility] Start: 01-23-[address] Naeem Lopez Facil ity:[facility] Start: 06-16-2022 ambulatory Naeem Lopez Facility: [id number] Start: 06-09-[address] Naeem Lopez Facil ity:[facility] Start: 06-09-[address] Naeem Lopez Facil ity:[facility] Start: 10-04-2020 ambulatory ELE Martin ty:[facility] Start: 10-04-2020 ambulatory RUFUS JOEL Facility :[facility] Start: 08-08-2020 End: 08-08-2020 Orders Only Sara Correa Work Phone: [facility] Start: 10-18-2018 Patient encounter procedure Aline MORALES [facility] Start: 10-14-2018 End: 10-14-2018 Patient encounter procedure GRACE ROTH [facility] Amb[facility] Start: 10-14-2018 End: 10-14-2018 Office outpatient new 30 minutes Grace Roth Work Phone: [facility] Comment on above: 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ulatory Start: 02-02-2018 Patient encounter procedure NICK HERNANDEZ [facility] Amb[facility] Procedures Date Procedure Procedure Detail Performing Clinician Start: 11-01-2024 Vitamin D, 25-hydrox y measurement Beata Atkins MD Work Phone: Comment on above: Vitamin D StatusDefi ciency: <20 ng/mL (50nmol/L)Insufficiency: 20-30 ng/mL (50-75 nmol/L)Sufficiency: 30-100 ng/mL (75-250 nmol/L)Toxicity: >100 ng/mL (>250 nmol/L) Start: 05-11-2024 UA DIP,URINE HCG (POC) Kieran Khan MD Work Phone: Start: 04-26-2024 Us pelvic nonobstetr ic real-time image complete Kieran Khan MD Work Phone: Start: 07-03-2023 CBC W Auto Different ial panel - Blood NAEEM HAMAD Start: 07-03-2023 Comprehensive metabo lic 2000 panel - Serum or Plasma NAEEM HAMAD Start: 07-03-2023 D-DIMER, NON VTE HUSSEI N HAMAD Plan of Treatment Date Care Activity Detail Author Start: 04-18-2029 Screening for malign ant neoplasm of cervix Cervical Cancer Screening [facility] Start: 04-18-2025 Screening for malign ant neoplasm of breast Mammogram Screening [facility] Start: 06-22-2024 End: 06-22-2024 Patient encounter procedure Mammogram Comment on above: left breast callback *US NEEDS BOOKED* Co mp- left breast callback Start: 05-11-2024 End: 05-11-2024 Patient encounter procedure 05/11/2024 9:20 AM EST Office Visit OB/Gynecology [address] [place] [address] Kieran Khan MD [address] [place] [address] PMB (postmenopausal bleeding) [N95.0] OB/Gynecology Comment on above: PMB (postmenopausal bleeding) [N95.0] Start: 04-26-2024 End: 04-26-2024 ambulatory 04/26/2024 9:30 AM EST Procedure OB/Gynecology [address] [place] [address] Remote, [employer] [address] [place] [address] PMB (postmenopausal bleeding) [N95.0] OB/Gynecology Comment on above: PMB (postmenopausal bleeding) [N95.0] Start: 04-18-2024 End: 04-18-2025 US Pelvis PELVIC US [facility] Anc Imaging Routine PMB (postmenopausal bleeding) Expected: 04/18/2024, Expires: 04/18/2025 [facility] Comment on above: Expected: 04/18/2024 , Expires: 04/18/2025 Start: 01-31-2024 Covid-19 Vaccine ( season) Covid-19 Vaccine ( season) [facility] Start: 01-31-2024 Influenza vaccination Influenza Vacc ine (#1) [facility] Start: 01-30-2023 Influenza vaccination Influenza Vacc ine (#1) [facility] Start: 2020 Administration of he rpes zoster vaccine Zoster Vaccines (1 of 2) [facility] Start: 2020 Screening for malign ant neoplasm of colon [facility] Start: 2020 Shingrix Vaccine (1 of 2) Shingrix Vaccine (1 of 2) [facility] Start: 2020 Zoster Vaccines (1 of 2) Zoster Vacc rosi (1 of 2) [facility] Start: 01-31-2020 Influenza vaccinatio n given Sequential Influenza Vaccine (#1) [facility] Start: 01-30-2019 Influenza vaccinatio n given SEQUENTIAL INFLUENZA VACCINE (Season Ended) [facility] Start: 2015 Screening for malign ant neoplasm of colon [facility] Start: 2010 Screening for malign ant neoplasm of breast [facility] Start: 01-15-2008 Screening for malign ant neoplasm of cervix Cervical Cancer Screening [facility] Start: 1992 DTaP/Tdap/Td Vaccine s (1 - Tdap) DTaP/Tdap/Td Vaccines (1 - Tdap) [facility] Start: 1991 Screening for malign ant neoplasm of cervix [facility] Start: 1989 Hepatitis B Vaccine (1 of 3 - 19+ 3-dose series) Hepatitis B Vaccine (1 of 3 - 19+ 3-dose series) [facility] Start: 1989 Pneumococcal Vaccine : 50+ (1 of 2 - PCV) Pneumococcal Vaccine: 50+ (1 of 2 - PCV) [facility] Start: 1989 Urine microalbumin profile DTaP,Tdap,Td Vaccine (1 - Tdap) [facility] Start: 1988 Annual PCP Team Safety Specialist loida Disease Visit Annual PCP Team Chronic Disease Visit [facility] Start: 1988 Anxiety Screening Anxiety Screening [facility] Start: 1988 Depression Screening Depression Scre ening [facility] Start: 1988 Diabetes mellitus screening Diabetes Screening [facility] Start: 1988 Hepatitis B surface antibody level LDL Cholesterol [facility] Start: 1988 Hepatitis C antibody , confirmatory test Hepatitis C Screening [facility] Start: 1988 Hepatitis C screening Hepatitis C [facility] Start: 1988 HIV screening HIV Screening [facility] Start: 1986 COVID-19 Vaccine (1 of 2) COVID-19 Vaccine (1 of 2) [facility] Start: 1985 HIV screening HIV Screening [facility] Start: 1982 Adolescent depressio n screening assessment Depression Screening (PHQ9) [facility] Start: 1980 Diabetic foot examination Diabetic Foot Exam [facility] Start: 1980 Glaucoma screening Dilated Retinal E xam [facility] Start: 1980 Hepatitis B screening Urine Al bumin:Creatinine Ratio [facility] Start: 1976 Pneumococcal vaccination Pneum ococcal Vaccine (1 of 2 - PCV) [facility] Start: 1975 Hemoglobin A1c measurement HbA1C [facility] Start: 1973 History and physical examination, annual for health maintenance Wellness Visit [facility] Start: 1971 MMR Vaccines (1 of 1 - Standard series) MMR Vaccines (1 of 1 - Standard series) [facility] Start: 1970 COVID-19 Vaccine (#1) COVID-19 Vacci ne (#1) [facility] Start: 1970 Hepatitis B Vaccines (1 of 3 - 3-dose series) Hepatitis B Vaccines (1 of 3 - 3-dose series) [facility] Start: 1970 HIV screening HIV Screening [facility] Start: 1970 Lipid panel Lipid Panel [facility] Start: 1970 Screening for malign ant neoplasm of cervix Pap Smear [facility] Start: 1970 Screening for malign ant neoplasm of colon [facility] Start: 1970 Screening mammography [facility] Start: 1970 [facility] Start: 1970 Yearly Adult Physical Yearly Adult P hysical [facility] End: 05-18-2025 DBT Breast - bilateral screening [facility]ENN[facility] Routine Encounter for screening mammogram for malignant neoplasm of breast 1 Occurrences starting 04/18/2024 until 05/18/2025 [facility] Comment on above: 1 Occurrences starti ng 04/18/2024 until 05/18/2025 DBT Breast - bilater al screening [facility] Routine Encounter for screening mammogram for malignant neoplasm of breast 04/18/2024 11:39 AM EST [facility] Endometrial bx w/wo endocervix bx w/o dilat spx ENDOMETRIAL BIOPSY Procedures Routine PMB (postmenopausal bleeding) Ordered: 04/18/2024 [facility] Work Phone: Comment on above: Ordered: 04/18/2024 PAP TEST PAP TEST Lab [facility] Encounter for screening for malignant neoplasm of cervix Special screening examination for human papillomavirus (HPV) 04/18/2024 10:10 AM EST [facility] SURGICAL PATHOLOGY SURGICAL PATH OLOGY Lab Routine PMB (postmenopausal bleeding) 05/11/2024 10:03 AM EST [facility] Work Phone: Payers Date Payer Category Payer Self-pay [id number] 2024 Private Health Insurance [facility] CHOICE PLUS [id number] 2024-Present [phone] [address] [place] [address] HMO [id number] 2024 Unknown [id number] 2020 Unknown [id number] 2017 Unknown [id number] 2017 Unknown [employer] [id number] 2017-Present [address] [place] [address] [id number] 2017 Worker's Compensation [id number] 2017 Worker's Compensation [employer] [id number] 2017-Present [id number] 2017 Worker's Compensation [employer] [id number] 2017-Present [id number] 1970 Unknown [id number] 2.16.840.1.524404.3.579. 2.903 1970 Unknown [id number] 2.16.840.1.848277.3.579. 2.903 1970 Unknown [id number] 2.16.840.1.104430.3.579. 2.903 1970 Unknown [id number] 2.16.840.1.312520.3.579. 2.903 1970 Unknown [id number] 2.16.840.1.602686.3.579. 2.594 1970 Unknown [id number] 2.16.840.1.647116.3.579. 2.594 1970 Unknown [id number] 2.16.840.1.153989.3.579. 2.1069 1970 Unknown [id number] 2.16.840.1.384261.3.579. 2.356 1970 Unknown [id number] 2.16.840.1.026722.3.579. 2.356 1970 Unknown [id number] 2.16.840.1.345118.3.579. 2.356 1970 Unknown [id number] 2.16.840.1.969242.3.579. 2.1245 1970 Unknown [id number] 2.16.840.1.785212.3.579. 2.1245 Unknown COMMERCIAL OTHER [id number] Unknown [id number] [id number]. 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 non-dr combination technician of alcohol (finding) [facility] Start: 1970 Sex Assigned At Not on file O [facility] Start: 01-01-2021 Tobacco smoking stat [facility] Unknown if ever smoked [facility] Start: 1970 Sex Assigned At Female [facility] Start: 04-18-2024 End: 05-11-2024 Gender identity Not on file [facility] Work Phone: Start: 06-27-2023 End: 07-07-2023 Exposure to SARS-CoV-2 (event) Unable to assess [facility] Start: 04-18-2024 End: 05-11-2024 Alcoholic beverage intake Current drinker of alcohol (finding) [facility] Start: 04-18-2024 End: 05-11-2024 History of Social function [facility] National Score (1-10 0), lower number is lower risk 78 [facility] Start: 01-01-2021 Tobacco smoking stat us NHIS Ex-smoker (finding) [facility] Clinical Notes 06-16-2022 to 07-08-2024 Telephone Encounter - Bal Michelle MD - 07/08/2024 3:04 PM ESTTelephone Encounter - Bal Michelle MD - 07/08/2024 3:04 PM ESTTelephone Encounter - Ruthie Guzman RN - 07/06/2024 3:47 PM EST Note Date & Type Note Facility 07-08-2024 Telephone encounter Note Noted. Bal Michelle MD [facility] Work Phone: 07-08-2024 Miscellaneous Notes Noted. Bal Michelle MD Left message for patient to call office or check [employer] [address] message and respond there. Ruthie Guzman RN Left message for patient to call office. See note below regarding call back imaging patient did not follow up with yet. Ruthie Guzman RN ----- Message from Kieran Khan MD sent at 07/04/2024 7:53 AM EST ----- Did she have somewhere else? If not please have her schedule thanks. Kieran Khan MD ----- Message ----- From: Shirley Harley Sent: 07/02/2024 7:45 AM EST To: Kieran Khan MD Recently, the patient listed above had a breast imaging exam which recommended additional imaging of an abnormality for further workup. As of this date we are unable to document whether this has been completed. Please have your patient call [phone] or [phone]. [phone] to schedule a breast imaging exam appointment for additional evaluation. Please ensure that you have placed either an electronic or hard copy order for the additional exam recommended from the screening mammogram report. We understand that this is an inconvenience to you and greatly appreciate your cooperation. If your patient has already scheduled an appointment, please disregard this letter. Sincerely, [facility] Breast Imaging documented in this encounter [facility] 07-06-2024 Telephone encounter Note Left message for patient to call office or check [employer] message and respond there. Ruthie Guzman RN [facility] 07-04-2024 Telephone encounter Note Left message for patient to call office. See note below regarding call back imaging patient did not follow up with yet. Ruthie Guzman RN [facility] [facility] 07-04-2024 Telephone encounter Note ----- Message from Kieran Khan MD sent at 07/04/2024 7:53 AM EST ----- Did she have somewhere else? If not please have her schedule thanks. Kieran Khan MD ----- Message ----- From: Shirley Harley Sent: 07/02/2024 7:45 AM EST To: Kieran Khan MD Recently, the patient listed above had a breast imaging exam which recommended additional imaging of an abnormality for further workup. As of this date we are unable to document whether this has been completed. Please have your patient call [phone] or [phone]. [phone] to schedule a breast imaging exam appointment for additional evaluation. Please ensure that you have placed either an electronic or hard copy order for the additional exam recommended from the screening mammogram report. We understand that this is an inconvenience to you and greatly appreciate your cooperation. If your patient has already scheduled an appointment, please disregard this letter. Sincerely, [facility] Breast Imaging [facility] 05-11-2024 Instructions Isaura Sharif MA - 05/11/2024 9:07 AM EST YOUR RECOVERY After your biopsy you may have: Vaginal bleeding (less than a normal menstrual period) Mild cramping Do NOT put anything in the vagina for 1 week after your endometrial biopsy. This includes: tampons douches and refraining from having sexual intercourse If you have any discomfort, you may take an over the counter pain medication (motrin, advil, ibuprofen, tylenol, etc). If this does not relieve your discomfort, contact the office. It is okay to wear a sanitary pad until the discharge and spotting stops. RISKS Although problems seldom occur with endometrial biopsies, there can be some complications. You may feel faint during and shortly after the procedure as well as have some bleeding after the procedure. There is also a risk of infection after the procedure. These complications are rare and can be easily treated. You should contact you doctor is you have any of the following: Heavy bleeding (more than your normal period) Bleeding with clots Severe abdominal pain Fever (more than 100.4F) Foul smelling vaginal discharge RESULTS We will have the results of your biopsy in 1-2 weeks. If you do not hear the results of your biopsy after 2 weeks, please contact the office for the results. If you have any additional questions or concerns please do not hesitate to contact the office. documented in this encounter [facility] 05-11-2024 Note HNO ID: [id number] Author: KIERAN KHAN MD Service: ? Author Type: Physician Type: Progress Notes Filed: 05/11/2024 09:45 Note Text: Ibis is a 53 year old who presents today for an endometrial biopsy for post menopausal bleeding. test: negative UNIVERSAL PROTOCOL / SAFETY CHECKLIST Procedure to be Performed: EMB Sign In: A Moment of CARE was completed. Personnel directly involved with the procedure wore the appropriate PPE (Personal Protective Equipment). Patient/Surrogate Stated/Verified: PATIENT VERIFIED(optional for EMERGENT procedures): Patient name, Date of , Relevant allergies, and The intended procedure Time Out Communication: Intended patient and procedure match the source documents. Consent documented and matches the intended procedure. No implant(s) inserted. Sign Out: SIGN OUT (optional for EMERGENT procedures): All specimen containers correctly labeled. All instruments, equipment, possible retained foreign bodies accounted for. Post-procedure follow-up management communicated and Plan of Care Visit completed when applicable. Kieran Khan M.D. PROCEDURE: EXTERNAL GENITALIA: Normal in appearance without lesions VAGINA: Normal in appearance without lesions BIOPSY: Speculum placed into the vagina with excellent visualization of the cervix. Cervix cleaned with betadine. Anterior lip of cervix grasped with single toothed tenaculum. Uterus sounded to 9 cm. Pipelle inserted into the uterus without difficulty and endometrial biopsy obtained. Specimen labeled and sent to pathology. Procedure Summary: Patient tolerated procedure well.-moderate pain ASSESSMENT: post menopausal bleeding PLAN: Specimens labeled and sent to Pathology. Will notify patient of results in 1-2 weeks. Post-procedure instructions reviewed and written material given to the patient. Kieran Khan MD [facility] 05-11-2024 History of Present illness Narrative Ibis is a 53 year old who presents today for an endometrial biopsy for post menopausal bleeding. test: negative UNIVERSAL PROTOCOL / SAFETY CHECKLIST Procedure to be Performed: EMB Sign In: A Moment of CARE was completed. Personnel directly involved with the procedure wore the appropriate PPE (Personal Protective Equipment). Patient/Surrogate Stated/Verified: PATIENT VERIFIED(optional for EMERGENT procedures): Patient name, Date of , Relevant allergies, and The intended procedure Time Out Communication: Intended patient and procedure match the source documents. Consent documented and matches the intended procedure. No implant(s) inserted. Sign Out: SIGN OUT (optional for EMERGENT procedures): All specimen containers correctly labeled. All instruments, equipment, possible retained foreign bodies accounted for. Post-procedure follow-up management communicated and Plan of Care Visit completed when applicable. Kieran Khan M.D. PROCEDURE: EXTERNAL GENITALIA: Normal in appearance without lesions VAGINA: Normal in appearance without lesions BIOPSY: Speculum placed into the vagina with excellent visualization of the cervix. Cervix cleaned with betadine. Anterior lip of cervix grasped with single toothed tenaculum. Uterus sounded to 9 cm. Pipelle inserted into the uterus without difficulty and endometrial biopsy obtained. Specimen labeled and sent to pathology. Procedure Summary: Patient tolerated procedure well.-moderate pain ASSESSMENT: post menopausal bleeding PLAN: Specimens labeled and sent to Pathology. Will notify patient of results in 1-2 weeks. Post-procedure instructions reviewed and written material given to the patient. Kieran Khan MD documented in this encounter [facility] 04-29-2024 Telephone encounter Note Patient notified [facility] 04-29-2024 Miscellaneous Notes Patient notified Left message for patient to call office. Zehra Dinero RN ----- Message from Kieran Khan MD sent at 04/27/2024 4:28 PM EST ----- Let her know on US uterus and ovaries look normal. Recommend f/u for biopsy as scheduled. Kieran Khan MD documented in this encounter [facility] 04-27-2024 Telephone encounter Note Left message for patient to call office. Zehra Dinero RN [facility] 04-27-2024 Telephone encounter Note ----- Message from Kieran Khan MD sent at 04/27/2024 4:28 PM EST ----- Let her know on US uterus and ovaries look normal. Recommend f/u for biopsy as scheduled. Kieran Khan MD [facility] 04-27-2024 Note HNO ID: [id number] Author: CARINE VALE MD Service: ? Author Type: Physician Type: Progress Notes Filed: 04/27/2024 10:45 Note Text: Ibis Acosta is a 53 year old female who presented for kiln setter ultrasound today. Encounter Diagnosis ICD-10-CM 1. PMB (postmenopausal bleeding) N95.0 Please see report under imaging tab. Carine Vale MD April 27, 2024 10:35 AM [facility] 04-27-2024 History of Present illness Narrative Ibis Acosta is a 53 year old female who presented for kiln setter ultrasound today. Encounter Diagnosis ICD-10-CM 1. PMB (postmenopausal bleeding) N95.0 Please see report under imaging tab. Carine Vale MD April 27, 2024 10:35 AM documented in this encounter [facility] 04-20-2024 Telephone encounter Note Patient called to schedule CB imaging [facility] Work Phone: 04-20-2024 Miscellaneous Notes Patient called to schedule CB imaging documented in this encounter [facility] 04-18-2024 History of Present illness Narrative Radiology Service Progress Note PATIENT NAME: Ibis Acosta DATE OF SERVICE: April 18, 2024 TIME: 11:43 AM PATIENT IDENTITY VERIFICATION COMPLETED USING TWO (2) IDENTIFIERS: Name and Date of confirmed by patient verbally. FALL SCREENING: Has the patient had 2 falls in the last year or 1 fall with injury or currently using an Ambulatory Assistive Device (Walker, Cane, Wheelchair, Crutches, etc.)? No PATIENT GENDER DATA: Female. status: : No status: NO. PATIENT RELEVANT IMPLANT DATA REVIEWED: Not Applicable PATIENT PRESENTS WITH AN IMPLANTABLE OR ATTACHED FAN ENGINE ENGINEER: No RADIOLOGY DEPARTMENT: Mammography PERIPHERAL IV DATA: Not applicable SIGNED BY: Jason Parks April 18, 2024 11:43 AM documented in this encounter [facility] 04-18-2024 Note HNO ID: [id number] Author: CLOVIS BELLAMY Mammo Tech Service: ? Author Type: National Facilities Manager Type: Progress Notes Filed: 04/18/2024 11:43 Note Text: Radiology Service Progress Note PATIENT NAME: Ibis Acosta DATE OF SERVICE: April 18, 2024 TIME: 11:43 AM PATIENT IDENTITY VERIFICATION COMPLETED USING TWO (2) IDENTIFIERS: Name and Date of confirmed by patient verbally. FALL SCREENING: Has the patient had 2 falls in the last year or 1 fall with injury or currently using an Ambulatory Assistive Device (Walker, Cane, Wheelchair, Crutches, etc.)? No PATIENT GENDER DATA: Female. status: : No status: NO. PATIENT RELEVANT IMPLANT DATA REVIEWED: Not Applicable PATIENT PRESENTS WITH AN IMPLANTABLE OR ATTACHED FAN ENGINE ENGINEER: No RADIOLOGY DEPARTMENT: Mammography PERIPHERAL IV DATA: Not applicable SIGNED BY: Jason Parks April 18, 2024 11:43 AM [facility] 04-18-2024 Note HNO ID: [id number] Author: KIERAN KHAN MD Service: ? Author Type: Physician Type: Progress Notes Filed: 04/18/2024 10:01 Note Text: Buttermaker offered: Patient declines. Ibis Acosta is a 53 year old female who presents for problem visit for PMB. HPI: 53 YOF w/ no mensews for > 2 years, they were regular up until that time. Had a lot of cramping w/ them and still had menses even after an endometrial ablation (done in [place]). Had a h/o of DVT after a trauma to her leg, no longer on anticoagulation. 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 Sometimes some intermittent cramping. Hasn't had a pap in many years. Were always normal in the past. 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 History Comments: Sexual Activity: Yes; Male Contraception: Vasectomy PAST MEDICAL HISTORY Diagnosis Date Acid reflux Anxiety state Diabetes mellitus (HCC) DVT (deep venous thrombosis) (HCC) Erythrocytosis PAST SURGICAL HISTORY Procedure Laterality Date LITHOTRIPSY XTRCORP SHOCK WAVE REMOVAL GALLBLADDER TOOTH EXTRACTION FAMILY HISTORY Problem Relation Age of Onset Heart Mother packemaker Heart Attack Father Breast Cancer Sister half sister Social History Tobacco Use Smoking status: Never Smokeless tobacco: Never Vaping Use Vaping status: Never Used Substance Use Topics Alcohol use: Yes Drug use: Never Current Outpatient Medications Medication Sig OZEMPIC 2 mg/dose (8 mg/3 mL) pen injector INJECT SUBCUTANEOUSLY ONCE A WEEK JARDIANCE 10 mg tablet Take 1 tablet by mouth once daily. esomeprazole (NEXIUM) 20 mg capsule Take 20 mg by mouth daily at 6 am. loratadine (CLARITIN) 10 mg tablet Take 10 mg by mouth once daily. No current facility-administered medications for this visit. Allergies As of Date: 04/18/2024 Allergen Noted Reaction CEPHALEXIN 09/16/2017 Diarrhea Fully Assessed 04/18/2024 REVIEW OF SYSTEMS Abdomen: some constipation on ozempic Expanded ROS: N/A Allergies and current medication updated:Yes SENSITIVE EXAM: The sensitive examination was discussed with the Patient or Patient's Authorized Supervisor Blueprinting And Photocopy. As applicable, any other physician, advance practice provider, medical student, or other health professional student that will be observing or involved in the sensitive examination for educational or training purposes was discussed with the Patient or Authorized Supervisor Blueprinting And Photocopy. The Patient or Authorized Supervisor Blueprinting And Photocopy has agreed to proceed with the sensitive examination. (Sensitive examination includes inspection and/or palpation of the breasts, pelvis, prostate and anorectal regions). EXAM: Wt 247 lb (112.0kg) GENERAL: pleasant, female in no apparent distress ABDOMEN: soft, non-tender, and no masses PELVIC: external genitalia normal, normal Bartholin's glands, urethra, [place]'s glands, no vulvar lesions, no cervical lesions, good vaginal support, physiologic discharge present, normal appearing perineal body and perianal region BIMANUAL: uterus normal size, shape and consistency, no adnexal masses, and non-tender ASSESSMENT AND PLAN: Assessment AND Plan Encounter for screening for malignant neoplasm of cervix Orders: PAP TEST Special screening examination for human papillomavirus (HPV) Orders: PAP TEST PMB (postmenopausal bleeding) REcommend EMB, declines today, will schedule needs annual, schedule annual Orders: ENDOMETRIAL BIOPSY PELVIC US WHI; Future Encounter for screening mammogram for malignant neoplasm of breast Orders: JENNIE SCREENING W ROQUE; Future Medical Decision Making: Problems: Moderate: New problem with uncertain prognosis Data: Unique test(s) ordered: 3+ Risk: Moderate: Moderate risk from testing/treatment Medical Decision Making Level: 4 - Moderate Kieran Khan MD [facility] 04-18-2024 History of Present illness Narrative Buttermaker offered: Patient declines. Ibis Acosta is a 53 year old female who presents for problem visit for PMB. HPI: 53 YOF w/ no mensews for > 2 years, they were regular up until that time. Had a lot of cramping w/ them and still had menses even after an endometrial ablation (done in [place]). Had a h/o of DVT after a trauma to her leg, no longer on anticoagulation. 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 Sometimes some intermittent cramping. Hasn't had a pap in many years. Were always normal in the past. 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 History Comments: Sexual Activity: Yes; Male Contraception: Vasectomy PAST MEDICAL HISTORY Diagnosis Date Acid reflux Anxiety state Diabetes mellitus (HCC) DVT (deep venous thrombosis) (HCC) Erythrocytosis PAST SURGICAL HISTORY Procedure Laterality Date LITHOTRIPSY XTRCORP SHOCK WAVE REMOVAL GALLBLADDER TOOTH EXTRACTION FAMILY HISTORY Problem Relation Age of Onset Heart Mother packemaker Heart Attack Father Breast Cancer Sister half sister Social History Tobacco Use Smoking status: Never Smokeless tobacco: Never Vaping Use Vaping status: Never Used Substance Use Topics Alcohol use: Yes Drug use: Never Current Outpatient Medications Medication Sig OZEMPIC 2 mg/dose (8 mg/3 mL) pen injector INJECT SUBCUTANEOUSLY ONCE A WEEK JARDIANCE 10 mg tablet Take 1 tablet by mouth once daily. esomeprazole (NEXIUM) 20 mg capsule Take 20 mg by mouth daily at 6 am. loratadine (CLARITIN) 10 mg tablet Take 10 mg by mouth once daily. No current facility-administered medications for this visit. Allergies As of Date: 04/18/2024 Allergen Noted Reaction CEPHALEXIN 09/16/2017 Diarrhea Fully Assessed 04/18/2024 REVIEW OF SYSTEMS Abdomen: some constipation on ozempic Expanded ROS: N/A Allergies and current medication updated:Yes SENSITIVE EXAM: The sensitive examination was discussed with the Patient or Patient's Authorized Supervisor Blueprinting And Photocopy. As applicable, any other physician, advance practice provider, medical student, or other health professional student that will be observing or involved in the sensitive examination for educational or training purposes was discussed with the Patient or Authorized Supervisor Blueprinting And Photocopy. The Patient or Authorized Supervisor Blueprinting And Photocopy has agreed to proceed with the sensitive examination. (Sensitive examination includes inspection and/or palpation of the breasts, pelvis, prostate and anorectal regions). EXAM: Wt 247 lb (112.0kg) GENERAL: pleasant, female in no apparent distress ABDOMEN: soft, non-tender, and no masses PELVIC: external genitalia normal, normal Bartholin's glands, urethra, [place]'s glands, no vulvar lesions, no cervical lesions, good vaginal support, physiologic discharge present, normal appearing perineal body and perianal region BIMANUAL: uterus normal size, shape and consistency, no adnexal masses, and non-tender ASSESSMENT AND PLAN: Assessment & Plan Encounter for screening for malignant neoplasm of cervix Orders: PAP TEST Special screening examination for human papillomavirus (HPV) Orders: PAP TEST PMB (postmenopausal bleeding) REcommend EMB, declines today, will schedule needs annual, schedule annual Orders: ENDOMETRIAL BIOPSY PELVIC US WHI; Future Encounter for screening mammogram for malignant neoplasm of breast Orders: JENNIE SCREENING W ROQUE; Future Medical Decision Making: Problems: Moderate: New problem with uncertain prognosis Data: Unique test(s) ordered: 3+ Risk: Moderate: Moderate risk from testing/treatment Medical Decision Making Level: 4 - Moderate Kieran hKan MD documented in this encounter [facility] 07-07-2023 History of Present illness Narrative Patient ID: Ibis Acosta is a 53 y.o. female. Referring Physician: No referring provider defined for this encounter. Primary Care Provider: No primary care provider on file. Subjective HPI Chief Complaint: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 extremity, unspecified chronicity, unspecified vein (HCC) Grace Roth MD [address] [place] [address] Aline Morales III, DO [address] [place] [address] Reason Comments virtual visit Reason Comments Vaginal Bleeding Specialty Diagnoses / Procedures Referred By Devin hess 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 [address] Referral ID Status Reason Start Date Expiration Date V isits Requested Visits Authorized [id number] Authorized 04/18/2024 05/31/2024 99 99 Specialty Diagnoses / Procedures Referred By Devin hess Referred To Contact [facility] Diagnoses Encounter for screening mammogram for malignant neoplasm of breast Procedures JENNIE SCREENING W ROQUE SCREENING DIGITAL BREAST TOMOSYNTHESIS BI SCREENING MAMMOGRAPHY BI 2-VIEW BREAST INC CAD Kieran Khan MD [address] [place] [address] [facility] [address] [place] [address] Referral ID Status Reason Start Date Expiration Date V isits Requested Visits Authorized [id number] Closed Auto-Generate d Referral 04/18/2024 05/31/2024 1 1 Reason Comments Results Reason Comments Mammogram Result Call Back Reason Comments Endometrial Biopsy Specialty Diagnoses / Procedures Referred By Contac t Referred To Contact [facility] Diagnoses PMB (postmenopausal bleeding) Procedures ENDOMETRIAL BIOPSY ENDOMETRIAL BX W/WO ENDOCERVIX BX W/O DILAT SPX Kieran Khan MD [address] [place] [address] [facility] [address] [place] [address] Referral ID Status Reason Start Date Expiration Date V isits Requested Visits Authorized [id number] Closed Auto-Generate d Referral 05/11/2024 05/31/2024 1 1 Reason Comments Appointment Care Teams (unrecognized sec tion and content) Team Status: Active Member Role Status Dates Dr. Rufus Joel MD Family Provider Active Mecca Corcoran DO Primary Care Provider Active Team Status: Inactive Member Role Status Dates Mecca Corcoran DO Primary Care Provider, Attending Provider Active Hop Picker Relationship Specialty [place] [address] [place] [address] Medical Oncologist Hematology and Oncology 06/05/23 Team Status: Active Member Role Status Dates Dr. Rufus Joel MD Family Provider Active Beata Atkins MD Primary Care Provider Active Team Status: Inactive Member Role Status Dates Beata Atkins MD Primary Care Provider Active St art: November 01, 2024 End: November 01, 2024 Beata Atkins MD Attending Provider Active Start : November 01, 2024 End: November 01, 2024 Beata Atkins MD Referring Provider Active Start : November 01, 2024 End: November 01, 2024 Goals (unrecognized section and content) Goals may be documented in a n alternate sectionGoals may be documented in an alternate section Source Comments (unrecognize d section and content) In the event this informatio n is protected by the Federal Confidentiality of Alcohol and Drug Abuse Patient Records regulations: The Federal rules restrict any use of the information to criminally investigate or prosecute any alcohol or drug abuse patient.[facility] the event this information is protected by the Federal Confidentiality of Alcohol and Drug Abuse Patient Records regulations: The Federal rules restrict any use of the information to criminally investigate or prosecute any alcohol or drug abuse patient.[facility] the event this information is protected by the Federal Confidentiality of Alcohol and Drug Abuse Patient Records regulations: The Federal rules restrict any use of the information to criminally investigate or prosecute any alcohol or drug abuse patient.[facility] the event this information is protected by the Federal Confidentiality of Alcohol and Drug Abuse Patient Records regulations: The Federal rules restrict any use of the information to criminally investigate or prosecute any alcohol or drug abuse patient.[facility] the event this information is protected by the Federal Confidentiality of Alcohol and Drug Abuse Patient Records regulations: The Federal rules restrict any use of the information to criminally investigate or prosecute any alcohol or drug abuse patient.[facility] the event this information is protected by the Federal Confidentiality of Alcohol and Drug Abuse Patient Records regulations: The Federal rules restrict any use of the information to criminally investigate or prosecute any alcohol or drug abuse patient.[facility] FOR RECORDS PERTAINING TO PATIENTS WHO ARE OR HAVE BEEN ENROLLED IN A CHEMICAL DEPENDENCY/SUBSTANCEABUSE PROGRAM, SOME INFORMATION MAY BE OMITTED. This clinical summary was aggregated from multiple sources. Caution should be exercised in using it in the provision of clinical care. This summary normalizes information from multiple sources, and as a consequence, information in this document may materially change the coding, format and clinical context of patient data. In addition, data may be omitted in some cases. CLINICAL DECISIONS SHOULD BE BASED ON THE PRIMARY CLINICAL RECORDS. [facility] [employer] [facility]. provides no warranty or guarantee of the accuracy or completeness of information in this document.
[2025-04-19 21:44] LABS: Anion Gap 12 (5-15); BUN 15 mg/dL (4-19); BUN/Creat Ratio 16.0 RATIO (10-20); Calcium,Total 9.6 mg/dL (7.6-11.0); Carbon Dioxide 23.2 mmol/L (21.0-32.0); Chloride 99 mmol/L (98-108); Estimated Creatinine Clearance 93.02 ml/min (50-250); Glucose 196 mg/dL (70-99); Potassium 3.8 mmol/L (3.3-5.1)
[2025-04-19 22:21] VITALS: BP 159/107; PULSE 88; RESP 18; TEMP 37; O2SAT 97
== END 2025-04-19 22:27 | disposition home or self-care (01) ==
PROVIDERS: Emergency Provider Student in an Organized Health Care Education/Training Program; PCP Family Medicine; Visit Provider Student in an Organized Health Care Education/Training Program
DX: R10.9 Unspecified abdominal pain (principal); Z86.718 Personal history of other venous thrombosis and embolism; Z87.891 Personal history of nicotine dependence; V40.5XXA Car driver injured in collision with pedestrian or animal in traffic accident, initial encounter; W22.10XA Striking against or struck by unspecified automobile airbag, initial encounter; Z79.01 Long term (current) use of anticoagulants; Z90.49 Acquired absence of other specified parts of digestive tract; R07.9 Chest pain, unspecified
CPT/HCPCS: 71260; 74177; 80048; 85025; 99284; Q9967; A4216